=== PATIENT | male | born 1945 | race Caucasian/White ===

== ENCOUNTER 2018-05-02 19:31 | Inpatient (IN) ==
[2018-05-02] MEDS ORDERED: Artificial Tears SOLN 15 ML BOTTLE BOTH EYES PRN (21:33)
--- NOTE | 2018-05-02 21:41 | Internal Med History&Physical ---
<Chacho Alberto - Last Filed: 05/03/18 01:51> Date of Encounter: 05/03/18 Time of Encounter: 09:00 Internal Medicine - H&P: HPI Chief complaint: Hypoxia Admitted From: Hospital to Hospital Transfer Plans for Post Hospital Care: Home History of present illness: Mr. Campbell is a 72 year old male with past medical history of COPD, hypertension, hyperlipidemia, GERD. Patient arrived at [facility] via EMS already intubated and history is obtained per EMS and chart review. No family is present at bedside. Patient reportedly called EMS for concerns of inability to rise from chair. He does receive home health and per their reports state he does normally able to stand and ambulate. Upon arrival, oxygen saturation was noted to be in the 70s. Patient was placed on nonrebreather mask and transferred to [facility]. Upon presentation, patient was noted to have improved oxygen saturation however his mental status did not deteriorate subsequently intubated and transferred to [facility]. Per ED note, patient reported a history of progressive weakness with inability to stand or market editor things. Also admitted to progressive confusion at that time. Further history was not obtainable from the patient upon arrival. Upon arrival, vital signs were significant for a blood pressure in the 90s/50s, heart rate 90s, otherwise unremarkable. Laboratory results were significant for stable anemia, arterial blood gas with pH of 7.42, CO2 of 76, bicarbonate of 49. BMP showed chloride 92, bicarbonate greater than 45, lactic acid 0.4 troponin 0.06, BNP of 143. Blood cultures 2 were obtained in [place] [facility]. CXR demonstrated no acute process with COPD changes. Past medical history as above as well as tardive dyskinesia, organic brain syndrome, anxiety Past surgical history unknown other than chart review Social history per chart review former smoker, denies alcohol or drug use. Past Med Surg Social Fam HX - Past Medical History Medical history: COPD, GERD, hyperlipidemia, hypertension, other (Tardive dyskinesia, chronic pain, cervical myelopathy, lumbar degenerative disc disease, organic brain syndrome) Additional medical history: Tardive dyskinesia Diverticulitis. Tremor Arthralgia Knee. Cervical Myelopathy Pneumonia. Chronic pain syndrome Degeration of Lumbar/sacral. constipation Hyperkalemia. cognitive disorder Organic brain disorder. Anemia Hallucinations Dyspepsia. Pulmomary [place] lesion. Neoplasm f the Trachea. PE Psychiatric history: anxiety - Past Surgical History Surgical History: other (Foot and ear surgeries) Additional surgical history: foot surgery and ear surgery - Social History Smoking Status: Former smoker Smokeless Tobacco Status: No Alcohol use: none Drug use: none Internal Medicine - H&P: Meds RX: Acetaminophen [Tylenol] 325 mg PO Q8H PRN 09/03/17 [History] RX: Aspirin 81 mg PO DAILY 09/03/17 [History] RX: Budesonide/Formoterol 160/4.5 [Symbicort 160/4.5] 2 puff IH BID 09/03/17 [History] RX: Cholecalciferol (Vitamin D3) [Vitamin D3] 1,000 mg PO DAILY 09/03/17 [History] RX: Docusate Sodium [Dok] 100 mg PO BID 09/03/17 [History] RX: Gabapentin [Neurontin] 400 mg PO DAILY 09/03/17 [History] RX: Ipratropium/Albuterol Neb [Duoneb] 1 vial IH Q6H PRN 09/03/17 [History] RX: Losartan [Cozaar] 25 mg PO DAILY 09/03/17 [History] RX: Methocarbamol [Robaxin] 500 mg PO Q4H PRN 09/03/17 [History] RX: Quetiapine Fumarate [Seroquel] 400 mg PO BID 09/03/17 [History] RX: Simvastatin [Zocor] 20 mg PO DAILY 09/03/17 [History] RX: dilTIAZem HCl [Diltiazem 24Hr ER] 240 mg PO DAILY 09/03/17 [History] RX: Paroxetine HCl [Paxil] 40 mg PO DAILY 10/14/17 [History] RX: Sucralfate [Carafate] 1 gm PO ACHS 10/14/17 [History] RX: predniSONE [PredniSONE] 4 mg PO DAILY 10/14/17 [History] RX: Roflumilast [Daliresp] 500 mcg PO DAILY 05/02/18 [History] RX: Buspirone HCl [Buspar] 10 mg PO BID 05/03/18 [History] RX: Calcium Carbonate/Vitamin D3 [Calcium 500 + Vit D Caplet] 1 tab PO BID 05/03/18 [History] RX: Denosumab [Prolia (For Outpatient Infusion)] 60 mg SQ Q6M 05/03/18 [History] RX: Levalbuterol HCl [Xopenex Neb] 1.25 mg IH Q4H PRN 05/03/18 [History] RX: Melatonin 3 mg PO HS 05/03/18 [History] RX: Multivit-Min/FA/Lycopen/Lutein [A Thru [employer] Multivit Tab] 1 tab PO DAILY 05/03/18 [History] RX: Pantoprazole Sodium 40 mg PO DAILY 05/03/18 [History] RX: Tiotropium [Spiriva] 18 mcg IH DAILY 05/03/18 [History] RX: predniSONE [PredniSONE] 10 mg PO DAILY #2 tablet 05/14/18 [Rx] Allergy/AdvReac Type Severity Reaction Status Date / Time No Known Allergies Allergy Verified 09/03/17 08:21 ROS unobtainable: due to endotracheal tube All Systems PM: A 10-system review of systems was performed and is negative for pertinent findings except as documented above in the HPI. - Constitutional Exam: Gen.: Vitals noted. No acute distress. Intubated and sedated HEENT: PERRL/EOMI, Normocephalic, atraumatic, endotracheal tube in place. Neck: Supple. No adenopathy. Cardiac: RRR, no murmur, +S1/S2, tachycardic, No BLE edema Pulmonary: Mechanical ventilation sounds, faint tight wheezing appreciated diffusely. equal chest expansion, unlabored breathing Abdomen: soft, nontender, BS hypoactive, no guarding, no palpable HSM, distended Skin: warm and dry, no visible lesions. MSK: ROM limited secondary to mental status Neuro: Intubated and sedated Psych: Unable to assess Internal Med - H&P Results - Labs CBC & Chem 7: 05/02/18 22:34 05/02/18 22:34 - Assessment and plan (1) Acute respiratory failure Status: Inactive Assessment and plan: - Acute respiratory failure with hypercapnia and hypoxia - ABG in [place] initially showed a CO2 of 126 and a pH of 7.23, pO2 179 - Intubated and sedated. Vent bundle GI prophylaxis - Admitted to [place] for COPD exacerbation and October 2017 - PH is currently well compensated with bicarbonate of greater than 45 - Chest x-ray in [place] ED shows stable chest with no acute process and evidence of chronic COPD changes - Respiratory failure most likely secondary to COPD exacerbation at this time - No evidence of infectious etiology, nonseptic. Does not appear fluid overloaded - Blood cultures obtained in [place] ED Plan - Continue ventilatory support - Scheduled duo nebs - Methylprednisone at 60 mg every 8 hours - Start Levaquin - Order respiratory infectious panel, Legionella and strep antigens Qualifiers: Respiratory failure complication: hypoxia and hypercapnia Qualified Code(s): J96.01 - Acute respiratory failure with hypoxia; J96.02 - Acute respiratory failure with hypercapnia (2) Hypertension Status: Acute Assessment and plan: - Currently borderline at 85/50 while being sedated - We will continue to hold home antihypertensives - Continue to monitor for need of vasopressor support Qualifiers: Hypertension type: essential hypertension Qualified Code(s): I10 - Essential (primary) hypertension (3) Acute exacerbation of chronic obstructive airways disease Status: Acute Assessment and plan: As above for acute respiratory failure (4) COPD (chronic obstructive pulmonary disease) Status: Inactive Assessment and plan: As above Qualifiers: COPD type: unspecified COPD Qualified Code(s): J44.9 - Chronic obstructive pulmonary disease, unspecified (5) Anemia Status: Chronic Assessment and plan: - H/H of 11.1/38.4 - Stable from baseline - No current signs of bleeding - Continue to monitor Qualifiers: Anemia type: unspecified type Qualified Code(s): D64.9 - Anemia, unspecified (6) DVT prophylaxis Status: Acute Assessment and plan: - Heparin 5000 units q12 h - Time Spent With Patient Total time spent is greater than 50% in coordination of care (as documented) at patient's floor/unit and/or counseling patient: <Eunice Romero Z - Last Filed: 05/19/18 04:05> Date of Encounter: 05/19/18 Internal Medicine - H&P: HPI History of present illness: Mr. Campbell is a 72 year old male All Systems PM: A 10-system review of systems was performed and is negative for pertinent findings except as documented above in the HPI. - Constitutional Vitals: Temp Pulse Resp BP Pulse Ox 97.8 F 80 16 105/77 96 05/14/18 06:46 05/14/18 06:46 05/14/18 11:33 05/14/18 06:46 05/14/18 11:33 Internal Med - H&P Results - Labs CBC & Chem 7: 05/14/18 05:19 05/14/18 05:19 - ABG Interpretation ABG results: 05/02/18 05/03/18 05/04/18 22:02 04:48 02:23 ABG pH 7.44 7.51 H 7.44 ABG pCO2 57 H 49 H 59 H ABG pO2 184 H D 98 83 L ABG HCO3 39 H 39 H 40 H ABG Total CO2 41 H 40 H 42 H ABG O2 Saturation 100 H 98 96 ABG Base Excess 12 H 14 H 14 H 05/05/18 05/05/18 05/06/18 10:56 12:38 00:05 ABG pH 7.28 L 7.34 7.29 L ABG pCO2 97 H* 82 H* 99 H* ABG pO2 81 L 74 L 89 ABG HCO3 46 H 44 H 47 H ABG Total CO2 49 H 47 H 50 H ABG O2 Saturation 93 L 93 L 95 ABG Base Excess 16 H 15 H 16 H 05/06/18 05/06/18 05/07/18 05:08 07:39 04:37 ABG pH 7.29 L 7.31 L 7.38 ABG pCO2 100 H* 94 H* 79 H* ABG pO2 71 L 77 L 82 L ABG HCO3 48 H 48 H 47 H ABG Total CO2 > 50 H > 50 H 49 H ABG O2 Saturation 90 L 92 L 95 ABG Base Excess 17 H 17 H 18 H - Impressions ITS Impressions KUB X-Ray 05/02/18 21:41 IMPRESSION: Enteric catheter with side port above the GE junction. This should be advanced at least 8 cm to ensure the side port is below the GE junction. The findings were sent to the Radiology Results Communication Center at 10:42 pm on 05/02/2018to be communicated to a licensed caregiver. D/ / Madeline Mac MD / Madeline Mac MD Interpreting Provider: Madeline Mac MD Head CT 05/03/18 10:00 IMPRESSION: No acute intracranial abnormality. Nonspecific chronic white matter microangiopathic ischemic changes. D/ / Armando Pepper MD / Armando Pepper MD Interpreting Provider: Armando Pepper MD Chest X-Ray 05/06/18 05:33 IMPRESSION: Possible left upper lobe pulmonary nodules. Routine chest CT is recommended for further evaluation. D/ / Lul Dickinson MD / Lul Dickinson MD Interpreting Provider: Lul Dickinson MD Head CT 05/07/18 17:28 IMPRESSION: No acute intracranial abnormality. Stable mild chronic small vessel white matter ischemic changes. D/ / Ryan Lewis MD / Ryan Lewis MD Interpreting Provider: Ryan Lewis MD - Assessment and plan (1) Acute exacerbation of chronic obstructive airways disease Status: Acute (2) Mucopurulent chronic bronchitis Status: Acute (3) Anemia Status: Chronic Qualifiers: Anemia type: unspecified type Qualified Code(s): D64.9 - Anemia, unspecified (4) Hypertension Status: Chronic Qualifiers: Hypertension type: essential hypertension Qualified Code(s): I10 - Essential (primary) hypertension (5) Acute respiratory failure with hypoxia and hypercapnia Status: Resolved (6) Goals of care, counseling/discussion Status: Acute (7) Atrial fibrillation Status: Chronic Qualifiers: Atrial fibrillation type: chronic Qualified Code(s): I48.2 - Chronic atrial fibrillation - Time Spent With Patient Total time spent is greater than 50% in coordination of care (as documented) at patient's floor/unit and/or counseling patient: - Attending Attestation I personally and independently interviewed and examined the patient, and I reviewed the patient's medical records. I am in agreement with the proposed assessment and proposed treatment plan. I discussed my findings and recommendation with the patient and answer all questions. The patient's medical records were edited to accurately reflect this encounter.
[2018-05-02] MEDS ORDERED: Naloxone 0.4 MG/ML INJ IVP PRN (21:48)
[2018-05-02] MEDS ORDERED: Levofloxacin 750 MG/150 ML 750 MG/150 ML BAG IVPB SCH (22:00)
[2018-05-02 22:08] LABS: ABG Base Excess 12 mEq/L (-2 to 3); ABG HCO3 39 mEq/L (21-27); ABG Oxygen Saturation 100 % (95-98); ABG PCO2 57 mmHg (35-45); ABG PH 7.44 pH Units (7.32-7.45); ABG PO2 184 mmHg (85-104); ABG TCO2 41 mEq/L (20-26); Blood Gas Modality ASSIST CONTROL; Blood Gas PEEP 5 cm H2O; Blood Gas Respiration Rate 14; Blood Gas VT 500 cc
[2018-05-02 22:44] LABS: Basophils % 0.2 %; Eosinophils % 0.2 %; Hematocrit 35.2 % (37.5-50.1); Hemoglobin 10.2 g/dL (12.9-16.9); Immature Granulocytes % 0.5 % (0-4); Lymphocytes # 0.4 K/mcL (0.6-4.6); Mean Platelet Volume 10.7 fL (9.4-12.4); Monocytes # 0.2 K/mcL (0.0-1.3); Monocytes % 1.1 %; Platelet Count 305 K/mcL (140-400); Red Blood Count 3.52 M/mcL (4.19-5.50); Red Cell Distribution Width 13.1 % (11.5-14.5)
[2018-05-02 22:51] LABS: Neutrophils # 12.5 K/mcL (1.6-8.9)
[2018-05-02 23:07] LABS: Alanine Aminotransferase 17 Units/L (7-52); Albumin 3.7 g/dL (3.5-5.7); Albumin/Globulin Ratio 1.7 (1.1-2.2); Alkaline Phosphatase 60 Units/L (34-104); Aspartate Amino Transferase 23 Units/L (13-39); BUN/Creatinine Ratio 23 (6-26); Bilirubin,Total 0.3 mg/dL (0.3-1.0); Blood Urea Nitrogen 21 mg/dL (8-23); Calcium 9.3 mg/dL (8.6-10.3); Carbon Dioxide 41 mEq/L (23-29); Chloride 95 mEq/L (98-107); Globulin 2.2 g/dL (2.4-3.5); Glucose 170 mg/dL (70-105); Osmolality,Calculated 297 (280-300); Potassium 4.7 mEq/L (3.5-5.1); Sodium 140 mEq/L (136-145); Total Protein 5.9 g/dL (6.4-8.9); eGFR For Non-African Americans > 60 (> 60)
[2018-05-02] MEDS: Ipratropium/Albuterol Neb 3 ML IH SCH (23:21)
[2018-05-03] MEDS: Artificial Tears SOLN 15 ML BOTTLE BOTH EYES SCH ×7 (00:27→20:50)
[2018-05-03] MEDS: methylPREDNISolone 125 MG/2 ML VIAL IVP SCH ×2 (00:28→07:59)
[2018-05-03 02:44] LABS: Adenovirus Not Detected (Not Detect); Bordetella Pertussis Not Detected (Not Detect); Chlamydophila pneumoniae Not Detected (Not Detect); Coronavirus 229E Not Detected (Not Detect); Coronavirus HKU1 Not Detected (Not Detect); Coronavirus NL63 Not Detected (Not Detect); Coronavirus OC43 Not Detected (Not Detect); Human Metapneumovirus Not Detected (Not Detect); Human Rhinovirus/Enterovirus Not Detected (Not Detect); Influenza A Subtype 2009 H1 Not Detected (Not Detect); Influenza B Not Detected (Not Detect); Mycoplasma pneumoniae Not Detected (Not Detect); Parainfluenza Virus 1 Not Detected (Not Detect); Parainfluenza Virus 2 Not Detected (Not Detect); Parainfluenza Virus 3 Not Detected (Not Detect); Parainfluenza Virus 4 Not Detected (Not Detect); Respiratory Syncytial Virus Not Detected (Not Detect)
[2018-05-03 02:45] LABS: Influenza A Untypeable Not Detected (Not Detect)
[2018-05-03 02:57] LABS: Basophils % 0.1 %; Eosinophils % 0.1 %; Hemoglobin 10.2 g/dL (12.9-16.9); Immature Granulocytes % 0.2 % (0-4); Lymphocytes # 0.4 K/mcL (0.6-4.6); Lymphocytes % 5.1 %; Mean Corpuscular Hemoglobin 28.7 pg (28.0-33.3); Mean Corpuscular Volume 95.5 fL (83.0-100.0); Mean Platelet Volume 10.3 fL (9.4-12.4); Monocytes # 0.1 K/mcL (0.0-1.3); Monocytes % 1.6 %; Neutrophils # 7.5 K/mcL (1.6-8.9); Platelet Count 277 K/mcL (140-400); Red Blood Count 3.56 M/mcL (4.19-5.50); Segmented Neutrophils % 92.9 %
[2018-05-03 03:16] LABS: BUN/Creatinine Ratio 27 (6-26); Blood Urea Nitrogen 23 mg/dL (8-23); Calcium 9.4 mg/dL (8.6-10.3); Carbon Dioxide 36 mEq/L (23-29); Chloride 95 mEq/L (98-107); Glucose 177 mg/dL (70-105); Magnesium 1.1 mg/dL (1.6-2.6); Osmolality,Calculated 294 (280-300); Potassium 4.4 mEq/L (3.5-5.1); Sodium 138 mEq/L (136-145); eGFR For Non-African Americans > 60 (> 60)
[2018-05-03] MEDS: Ipratropium/Albuterol Neb 3 ML IH SCH ×5 (03:29→20:24)
[2018-05-03 04:51] LABS: ABG Base Excess 14 mEq/L (-2 to 3); ABG HCO3 39 mEq/L (21-27); ABG Oxygen Saturation 98 % (95-98); ABG PCO2 49 mmHg (35-45); ABG PH 7.51 pH Units (7.32-7.45); ABG PO2 98 mmHg (85-104); ABG TCO2 40 mEq/L (20-26); Blood Gas Modality ASSIST CONTROL; Blood Gas PEEP 5 cm H2O; Blood Gas Respiration Rate 14; Blood Gas VT 500 cc
[2018-05-03] MEDS: *HR* Heparin 5,000 UNIT/ML VIAL SQ SCH ×2 (05:52→18:10)
[2018-05-03] MEDS: Pantoprazole 40 MG VIAL IVP SCH (05:52)
[2018-05-03] MEDS ORDERED: *HR* Metoprolol 5 MG/5 ML VIAL IVP ONE ×3 (07:55→11:45)
[2018-05-03] MEDS: Chlorhexidine Rinse 15 ML MOUTHWASH MM SCH ×2 (07:58→20:08)
--- NOTE | 2018-05-03 09:06 | Pulmonology Consult Note ---
<Johnna Gaytan - Last Filed: 05/03/18 11:17> Date of Encounter: 05/03/18 Time of Encounter: 09:06 Assessment and Plan (1) Acute respiratory failure with hypoxia and hypercapnia Current Visit: Yes Status: Acute Patient intubated due to hypoxia and concern for altered mental status due to hypercarbia. Will continue antibiotics and steroids for COPD exacerbation. Repeat ABG completed this AM shows overcorrection of patient's hypercarbia therefore vent changed to to respiratory rate 10 with tidal volume 450. Plan for CPAP trial today with possible extubation. (2) Acute exacerbation of chronic obstructive airways disease Current Visit: Yes Status: Acute Patient with hypoxia and respiratory failure. On exam patient has wheezing. Will provide patient with duonebs q4H and albuterol q2H prn. Solumedrol 40mg q 12 hours. No leukocytosis or focal consolidation on chest xray. (3) Weakness Current Visit: Yes Status: Acute CT head to be completed. No focal deficits according to outside facility. Will reassess patient's neurological status once extubated (4) Hypertension Current Visit: Yes Status: Acute Restart patient's home medications Qualifiers: Hypertension type: essential hypertension Qualified Code(s): I10 - Essential (primary) hypertension (5) Anemia Current Visit: Yes Status: Chronic Chronic. Will trend daily CBCs. Qualifiers: Anemia type: unspecified type Qualified Code(s): D64.9 - Anemia, unspecified (6) DVT prophylaxis Current Visit: Yes Status: Acute Subcutaneous heparin History of Present Illness Consult date: 05/03/18 Reason for consult: COPD Chief complaint: Weakness, Acute Respiratory Failure History of present illness: 72 year old male with significant PMHx of COPD, HTN, HLD admitted to our hospital for hypoxia, acute respiratory failure and weakness. During my evaluation the patient is intubated therefore the history of present illness obtained from previous records and documentation. According to the outside emergency department the patient called EMS for global weakness and inability to ambulate. When they arrived to the patient's home he was weak in all four extremities but had no focal deficits. Patient was also found to be hypoxic in the 70s. When he arrived to the outside facility patient's oxygen saturation had improved but he had worsening mental status. There was concern that the patient could not protect his airway due to confusion and decision was made the intubate the patient. When patient arrived to our ICU repeat labs showed stable anemia and stable elevated troponin at 0.06. Patient's repeat ABG showed over- correction for his hypercarbia leading to respiratory alkalosis. Patient received one dose of levaquin with steroids and duonebs for presumed COPD exacerbation. Past Med Surg Social Fam HX - Past Medical History Source: old records reviewed Medical history: COPD, GERD, hyperlipidemia, hypertension, other (Tardive dyskinesia, chronic pain, cervical myelopathy, lumbar degenerative disc disease, organic brain syndrome) Additional medical history: Tardive dyskinesia Diverticulitis. Tremor Arthralgia Knee. Cervical Myelopathy Pneumonia. Chronic pain syndrome Degeration of Lumbar/sacral. constipation Hyperkalemia. cognitive disorder Organic brain disorder. Anemia Hallucinations Dyspepsia. 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 PE Psychiatric history: anxiety - Past Surgical History Surgical History: other (Foot and ear surgeries) Additional surgical history: foot surgery and ear surgery - Social History Smoking Status: Former smoker Smokeless Tobacco Status: No Alcohol use: none Drug use: none Medications and Allergies Acetaminophen [Tylenol] 325 mg PO Q8H PRN 09/03/17 [History] Aspirin 81 mg PO DAILY 09/03/17 [History] Budesonide/Formoterol 160/4.5 [Symbicort 160/4.5] 2 puff IH BID 09/03/17 [History] Cholecalciferol (Vitamin D3) [Vitamin D3] 1,000 mg PO DAILY 09/03/17 [History] Docusate Sodium [Dok] 100 mg PO BID 09/03/17 [History] Gabapentin [Neurontin] 400 mg PO DAILY 09/03/17 [History] Ipratropium/Albuterol Neb [Duoneb] 1 vial IH Q6H PRN 09/03/17 [History] Levalbuterol Tartrate [Xopenex Hfa] 1 puff IH Q8H 09/03/17 [History] Losartan [Cozaar] 25 mg PO DAILY 09/03/17 [History] Methocarbamol [Robaxin] 500 mg PO Q4H PRN 09/03/17 [History] Quetiapine Fumarate [Seroquel] 400 mg PO BID 09/03/17 [History] Simvastatin [Zocor] 40 mg PO DAILY 09/03/17 [History] dilTIAZem HCl [Diltiazem 24Hr ER] 240 mg PO DAILY 09/03/17 [History] Paroxetine HCl [Paxil] 40 mg PO DAILY 10/14/17 [History] Sucralfate [Carafate] 2 ml PO TID 10/14/17 [History] predniSONE [PredniSONE] 1 tab PO DAILY 10/14/17 [History] Roflumilast [Daliresp] 500 mcg PO DAILY 05/02/18 [History] Allergy/AdvReac Type Severity Reaction Status Date / Time No Known Allergies Allergy Verified 09/03/17 08:21 ROS unobtainable: due to endotracheal tube All Systems: The remainder of the systems were reviewed and are negative Physical Examination Vital Signs: Vital Signs, Last 4 Hours Temp Pulse Resp BP Pulse Ox 05/03/18 08:17 14 137/84 97 05/03/18 08:00 98 F 117 16 137/84 96 05/03/18 07:00 112 16 140/82 96 05/03/18 06:10 14 114/98 96 05/03/18 06:00 105 14 114/98 99 General appearance: no acute distress, other (intubated, sedated) Eyes: nonicteric ENT: oropharynx moist Effort: normal Inspection: normal Auscultation: bilateral: wheezes Cardiovascular: PVC's noted, other (tachycardia) Gastrointestinal: normoactive bowel sounds, non-distended Integumentary: normal Extremities: no cyanosis Musculoskeletal: no deformities unable to assess due to mental status Ventilator Settings Ventilator Settings: Ventilator Settings, Last 8 Hours Ventilator Tidal Volume 450 Setting Ventilator Tidal Volume 450 Setting Ventilator Tidal Volume 500 Setting Ventilator Tidal Volume 500 Setting Ventilator Tidal Volume 500 Setting Ventilator Tidal Volume 500 Setting Ventilator Tidal Volume 500 Setting Ventilator Tidal Volume 500 Setting Ventilator Tidal Volume 500 Setting Ventilator Tidal Volume 500 Setting Ventilator Tidal Volume 500 Setting Ventilator Tidal Volume 500 Setting Ventilator Respiratory Rate 10 Setting Ventilator Respiratory Rate 10 Setting Ventilator Respiratory Rate 14 Setting Ventilator Respiratory Rate 14 Setting Ventilator Respiratory Rate 14 Setting Ventilator Respiratory Rate 14 Setting Ventilator Respiratory Rate 14 Setting Ventilator Respiratory Rate 14 Setting Ventilator Respiratory Rate 14 Setting Ventilator Respiratory Rate 14 Setting Ventilator Respiratory Rate 14 Setting Ventilator Respiratory Rate 14 Setting Actual Respiratory Rate 14 Actual Respiratory Rate 16 Actual Respiratory Rate 16 Actual Respiratory Rate 14 Actual Respiratory Rate 14 Actual Respiratory Rate 14 Actual Respiratory Rate 14 Actual Respiratory Rate 14 Actual Respiratory Rate 14 Actual Respiratory Rate 14 Actual Respiratory Rate 14 Positive End Expiratory 5 Pressure Positive End Expiratory 5 Pressure Positive End Expiratory 5 Pressure Positive End Expiratory 5 Pressure Positive End Expiratory 5 Pressure Positive End Expiratory 5 Pressure Positive End Expiratory 5 Pressure Positive End Expiratory 5 Pressure Positive End Expiratory 5 Pressure Positive End Expiratory 5 Pressure Positive End Expiratory 5 Pressure Positive End Expiratory 5 Pressure Peak Inspiratory Airway 25 Pressure Peak Inspiratory Airway 23 Pressure Peak Inspiratory Airway 26 Pressure Peak Inspiratory Airway 25 Pressure Peak Inspiratory Airway 28 Pressure Peak Inspiratory Airway 27 Pressure Peak Inspiratory Airway 29 Pressure Peak Inspiratory Airway 28 Pressure Peak Inspiratory Airway 29 Pressure Peak Inspiratory Airway 26 Pressure Peak Inspiratory Airway 26 Pressure Results - Laboratory Findings CBC and BMP: 05/03/18 02:46 05/03/18 02:46 ABG ABG pH 7.51 pH Units (7.32-7.45) H 05/03/18 04:48 ABG pCO2 49 mmHg (35-45) H 05/03/18 04:48 ABG pO2 98 mmHg (85-104) 05/03/18 04:48 ABG O2 Saturation 98 % (95-98) 05/03/18 04:48 Abnormal lab findings: Abnormal lab results RBC 3.56 M/mcL (4.19-5.50) L 05/03/18 02:46 Hgb 10.2 g/dL (12.9-16.9) L 05/03/18 02:46 Hct 34.0 % (37.5-50.1) L 05/03/18 02:46 MCHC 30.0 g/dL (31.6-35.5) L 05/03/18 02:46 Lymphocytes # 0.4 K/mcL (0.6-4.6) L 05/03/18 02:46 ABG pH 7.51 pH Units (7.32-7.45) H 05/03/18 04:48 ABG pCO2 49 mmHg (35-45) H 05/03/18 04:48 ABG HCO3 39 mEq/L (21-27) H 05/03/18 04:48 ABG Total CO2 40 mEq/L (20-26) H 05/03/18 04:48 ABG Base Excess 14 mEq/L (-2 to 3) H 05/03/18 04:48 Chloride 95 mEq/L (98-107) L 05/03/18 02:46 Carbon Dioxide 36 mEq/L (23-29) H 05/03/18 02:46 BUN/Creatinine Ratio 27 (6-26) H 05/03/18 02:46 Glucose 177 mg/dL (70-105) H 05/03/18 02:46 POC Glucose 148 mg/dL (70-99) H 05/02/18 21:28 Magnesium 1.1 mg/dL (1.6-2.6) L 05/03/18 02:46 Troponin I 0.06 ng/mL (< 0.04) H* 05/02/18 22:34 B-Natriuretic Peptide 105 pg/mL (Less than 100) H 05/03/18 02:46 Serum Total Protein 5.9 g/dL (6.4-8.9) L 05/02/18 22:34 Globulin 2.2 g/dL (2.4-3.5) L 05/02/18 22:34 - Microbiology Findings Microbiology Findings: Microbiology, Last 48 Hours 05/02/18 22:12 Legionella Antigen - Final Urine,[place] Streptococcus pneumoniae Antigen (M - Final - Clinical Findings Intake & Output: Intake & Output 05/02/18 05/03/18 05/03/18 23:59 07:59 15:59 Intake Total 150 / 150 274 / 274 30 Output Total 50 / 50 150 / 150 125 / 125 Balance 100 / 100 124 / 124 -95 / -95 Weight 69.4 kg 69.4 kg Consult Discharge Plan - Plan [facility]errals[facility]Primary Care Provider[facility] - <Per Payne W - Last Filed: 05/03/18 14:47> Date of Encounter: 05/03/18 All Systems: The remainder of the systems were reviewed and are negative Physical Examination Vital Signs: Vital Signs, Last 4 Hours Temp Pulse Resp BP Pulse Ox 05/03/18 14:00 101 18 123/90 96 05/03/18 13:15 100 18 91/72 96 05/03/18 12:31 98.7 F 90 18 122/100 95 05/03/18 11:12 24 157/93 96 05/03/18 11:00 120 17 157/93 94 Ventilator Settings Ventilator Settings: Ventilator Settings, Last 8 Hours Ventilator Tidal Volume 450 Setting Ventilator Tidal Volume 450 Setting Ventilator Tidal Volume 450 Setting Ventilator Tidal Volume 450 Setting Ventilator Tidal Volume 450 Setting Ventilator Tidal Volume 450 Setting Ventilator Tidal Volume 450 Setting Ventilator Tidal Volume 450 Setting Ventilator Tidal Volume 450 Setting Ventilator Tidal Volume 500 Setting Ventilator Respiratory Rate 8 Setting Ventilator Respiratory Rate 8 Setting Ventilator Respiratory Rate 8 Setting Ventilator Respiratory Rate 10 Setting Ventilator Respiratory Rate 8 Setting Ventilator Respiratory Rate 8 Setting Ventilator Respiratory Rate 8 Setting Ventilator Respiratory Rate 10 Setting Ventilator Respiratory Rate 10 Setting Ventilator Respiratory Rate 14 Setting Actual Respiratory Rate 17 Actual Respiratory Rate 17 Actual Respiratory Rate 18 Actual Respiratory Rate 13 Actual Respiratory Rate 18 Actual Respiratory Rate 20 Actual Respiratory Rate 15 Actual Respiratory Rate 14 Actual Respiratory Rate 16 Actual Respiratory Rate 16 Positive End Expiratory 5 Pressure Positive End Expiratory 5 Pressure Positive End Expiratory 5 Pressure Positive End Expiratory 5 Pressure Positive End Expiratory 5 Pressure Positive End Expiratory 5 Pressure Positive End Expiratory 5 Pressure Positive End Expiratory 5 Pressure Positive End Expiratory 5 Pressure Positive End Expiratory 5 Pressure Peak Inspiratory Airway 22 Pressure Peak Inspiratory Airway 23 Pressure Peak Inspiratory Airway 22 Pressure Peak Inspiratory Airway 11 Pressure Peak Inspiratory Airway 18 Pressure Peak Inspiratory Airway 21 Pressure Peak Inspiratory Airway 19 Pressure Peak Inspiratory Airway 25 Pressure Peak Inspiratory Airway 23 Pressure Peak Inspiratory Airway 26 Pressure Results - Laboratory Findings CBC and BMP: 05/03/18 02:46 05/03/18 02:46 ABG ABG pH 7.51 pH Units (7.32-7.45) H 05/03/18 04:48 ABG pCO2 49 mmHg (35-45) H 05/03/18 04:48 ABG pO2 98 mmHg (85-104) 05/03/18 04:48 ABG O2 Saturation 98 % (95-98) 05/03/18 04:48 Abnormal lab findings: Abnormal lab results RBC 3.56 M/mcL (4.19-5.50) L 05/03/18 02:46 Hgb 10.2 g/dL (12.9-16.9) L 05/03/18 02:46 Hct 34.0 % (37.5-50.1) L 05/03/18 02:46 MCHC 30.0 g/dL (31.6-35.5) L 05/03/18 02:46 Lymphocytes # 0.4 K/mcL (0.6-4.6) L 05/03/18 02:46 ABG pH 7.51 pH Units (7.32-7.45) H 05/03/18 04:48 ABG pCO2 49 mmHg (35-45) H 05/03/18 04:48 ABG HCO3 39 mEq/L (21-27) H 05/03/18 04:48 ABG Total CO2 40 mEq/L (20-26) H 05/03/18 04:48 ABG Base Excess 14 mEq/L (-2 to 3) H 05/03/18 04:48 Chloride 95 mEq/L (98-107) L 05/03/18 02:46 Carbon Dioxide 36 mEq/L (23-29) H 05/03/18 02:46 BUN/Creatinine Ratio 27 (6-26) H 05/03/18 02:46 Glucose 177 mg/dL (70-105) H 05/03/18 02:46 POC Glucose 148 mg/dL (70-99) H 05/02/18 21:28 Magnesium 1.1 mg/dL (1.6-2.6) L 05/03/18 02:46 Troponin I 0.06 ng/mL (< 0.04) H* 05/02/18 22:34 B-Natriuretic Peptide 105 pg/mL (Less than 100) H 05/03/18 02:46 Serum Total Protein 5.9 g/dL (6.4-8.9) L 05/02/18 22:34 Globulin 2.2 g/dL (2.4-3.5) L 05/02/18 22:34 - Microbiology Findings Microbiology Findings: Microbiology, Last 48 Hours 05/02/18 22:12 Legionella Antigen - Final Urine,[place] Streptococcus pneumoniae Antigen (M - Final - Clinical Findings Intake & Output: Intake & Output 05/02/18 05/03/18 05/03/18 23:59 07:59 15:59 Intake Total 150 / 150 274 / 274 Output Total 50 / 50 150 / 150 425 / 425 Balance 100 / 100 124 / 124 -395 / -395 Weight 69.4 kg 69.4 kg - Attending Attestation I examined this patient and my medical decision-making was reviewed with the Resident Physician. I agree with the documented findings, disposition and treatment plan as described except to the extent set forth below. We independently had [id number] contact with the patient I spent 32min of Critical Care time with this patient. It involved decision making of high complexity to assess, manipulate, and support vital organ system failure and/or to prevent further life threatening deterioration of the patient's condition. The time involved in the performance of separately reportable procedures was not counted toward critical care time. Patient seen and examined at bedside Labs, radiology, chart personally reviewed. Management was reviewed during multidisciplinary critical care rounds. 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 and weakness prior to intubat ion head CT pending Pulm: Acute on chronic hypoxic hypercapnic respiratory failure which appears secondary to COPD exacerbation no clear evidence of pneumonia but cannot rule out infectious workup undertaken he is on the vent with the evidence of overventilation and I have decreased his 7 minute ventilation to accommodate this if head CT negative and can decrease sedation would consider spontaneous breathing trial later in the morning/afternoon Cards: Blood pressure monitored and stable and he appears to have a history of atrial fibrillation and the rate is regular but multiple PVCs and has been climbing we will reinstitute his home Cardizem for this GI: Prophylaxis given Nutrition: And by mouth for now Renal: UOP Monitored, Cont to Trend sCr and monitor Electrolytes. ID: Continue macrolide antibiotic for COPD exacerbation cultures pending Heme/Onc: DVT prophylaxis given Endo: Glucose Monitored Integ/MSK: Skin Care per routine ICU Nursing Protocol to prevent ulcers. Lines: All lines examined without evidence of infection : Dispo: In ICU for critical illness CODE: Full
[2018-05-03] MEDS ORDERED: Metoprolol XL (24 HR) Succ 25 MG TAB.ER.24H PO SCH (10:45)
[2018-05-03] MEDS ORDERED: Diltiazem CD (24hr) 240 MG CAPSULE PO SCH (10:45)
[2018-05-03] MEDS: dilTIAZem HCl 60 MG TABLET PO SCH ×3 (11:46→23:36)
[2018-05-03] MEDS: *HR* Metoprolol 5 MG/5 ML VIAL IVP SCH ×3 (11:55→23:37)
[2018-05-03] MEDS ORDERED: cefTRIAXone 1,000 MG in Water for inj. (sterile) 20 ML 10 ML IVP SCH (18:00)
[2018-05-03] MEDS ORDERED: Azithromycin 500 MG in D5% in Water 250 ML IVPB SCH (18:00)
[2018-05-03] MEDS: MethylPREDNISolone 40 MG/ML VIAL IVP SCH (18:04)
[2018-05-03] MEDS ORDERED: *HR* LORazepam 2 MG/ML VIAL IVP ONE (21:04)
[2018-05-04] MEDS: Ipratropium/Albuterol Neb 3 ML IH SCH ×7 (00:07→23:39)
[2018-05-04] MEDS ORDERED: Melatonin 3 MG TABLET PO SCH (01:15)
[2018-05-04] MEDS ORDERED: Haloperidol Lactate 5 MG/ML VIAL IVP ONE (02:14)
[2018-05-04] MEDS ORDERED: Haloperidol Lactate 5 MG/ML VIAL ONE (02:15)
[2018-05-04 02:27] LABS: ABG Base Excess 14 mEq/L (-2 to 3); ABG HCO3 40 mEq/L (21-27); ABG Oxygen Saturation 96 % (95-98); ABG PCO2 59 mmHg (35-45); ABG PH 7.44 pH Units (7.32-7.45); ABG PO2 83 mmHg (85-104); ABG TCO2 42 mEq/L (20-26); Blood Gas Modality NIV
[2018-05-04 04:44] LABS: Basophils % 0.1 %; Hematocrit 29.9 % (37.5-50.1); Hemoglobin 9.5 g/dL (12.9-16.9); Immature Granulocytes % 0.3 % (0-4); Lymphocytes # 0.6 K/mcL (0.6-4.6); Lymphocytes % 5.2 %; Mean Corpuscular HGB Conc 31.8 g/dL (31.6-35.5); Mean Corpuscular Hemoglobin 29.1 pg (28.0-33.3); Mean Corpuscular Volume 91.7 fL (83.0-100.0); Mean Platelet Volume 10.8 fL (9.4-12.4); Monocytes # 0.7 K/mcL (0.0-1.3); Monocytes % 6.3 %; Neutrophils # 10.4 K/mcL (1.6-8.9); Platelet Count 254 K/mcL (140-400); Red Blood Count 3.26 M/mcL (4.19-5.50); Red Cell Distribution Width 13.6 % (11.5-14.5); Segmented Neutrophils % 88.1 %
[2018-05-04 05:04] LABS: BUN/Creatinine Ratio 39 (6-26); Blood Urea Nitrogen 32 mg/dL (8-23); Calcium 8.8 mg/dL (8.6-10.3); Carbon Dioxide 38 mEq/L (23-29); Chloride 95 mEq/L (98-107); Glucose 182 mg/dL (70-105); Magnesium 1.9 mg/dL (1.6-2.6); Osmolality,Calculated 296 (280-300); Sodium 137 mEq/L (136-145); eGFR For Non-African Americans > 60 (> 60)
[2018-05-04] MEDS: *HR* Heparin 5,000 UNIT/ML VIAL SQ SCH ×2 (05:37→21:13)
[2018-05-04] MEDS: *HR* Metoprolol 5 MG/5 ML VIAL IVP SCH ×3 (05:37→21:13)
[2018-05-04] MEDS: MethylPREDNISolone 40 MG/ML VIAL IVP SCH (05:37)
[2018-05-04] MEDS: Pantoprazole 40 MG VIAL IVP SCH (05:37)
[2018-05-04] MEDS: dilTIAZem HCl 60 MG TABLET PO SCH ×3 (05:37→21:11)
--- NOTE | 2018-05-04 07:44 | Pulmonology Progress Note ---
<Johnna Gaytan - Last Filed: 05/04/18 08:49> Date of Encounter: 05/04/18 Time of Encounter: 07:43 Assessment and Plan (1) Acute respiratory failure with hypoxia and hypercapnia Current Visit: Yes Status: Resolved Patient extubated yesterday without difficulty. Duonebs and antibiotics to continue for COPD exacerbation. (2) Acute exacerbation of chronic obstructive airways disease Current Visit: Yes Status: Acute Continue antibiotics, duonebs, and steroids. Patient has no wheezing on my examination today. Extubated without difficulty. (3) Weakness Current Visit: Yes Status: Acute CT head within normal limits. No focal deficit on exam. Unsure what patient's baseline is. (4) Hypertension Current Visit: Yes Status: Acute Patient's home medications restarted Qualifiers: Hypertension type: essential hypertension Qualified Code(s): I10 - Essential (primary) hypertension (5) Anemia Current Visit: Yes Status: Chronic chronic. continue to trend CBCs. No sign of active bleeding Qualifiers: Anemia type: unspecified type Qualified Code(s): D64.9 - Anemia, unspecified (6) DVT prophylaxis Current Visit: Yes Status: Acute subcutaneous heparin Subjective Principal diagnosis: COPD exacerbation Interval history: Patient extubated yesterday without difficulty. Overnight patient did have some restlessness therefore his home psychiatric medications were started. Unknown what the patient's baseline mental status is. He is alert in the room and has generalized shaking. No focal neurological deficit. Patient has had no respiratory issues overnight. No changes in baseline labs. Plan to transfer patient to floor today. Objective PUL Vital signs: Last Vital Signs Temp 98.0 F 05/04/18 07:00 Pulse 93 05/04/18 07:00 Resp 21 05/04/18 07:00 BP 140/86 05/04/18 07:00 Pulse Ox 99 05/04/18 07:00 General appearance: no acute distress Eyes: nonicteric ENT: oropharynx dry Neck: supple Effort: normal Cardiovascular: regular rate and rhythm Gastrointestinal: normoactive bowel sounds, non-distended Integumentary: normal Extremities: no cyanosis Musculoskeletal: no deformities non-focal exam Results - Laboratory Findings CBC and BMP: 05/04/18 04:32 05/04/18 04:32 ABG ABG pH 7.44 pH Units (7.32-7.45) 05/04/18 02:23 ABG pCO2 59 mmHg (35-45) H 05/04/18 02:23 ABG pO2 83 mmHg (85-104) L 05/04/18 02:23 ABG O2 Saturation 96 % (95-98) 05/04/18 02:23 Abnormal lab findings: Abnormal lab results WBC 11.8 K/mcL (4.3-11.1) H 05/04/18 04:32 RBC 3.26 M/mcL (4.19-5.50) L 05/04/18 04:32 Hgb 9.5 g/dL (12.9-16.9) L 05/04/18 04:32 Hct 29.9 % (37.5-50.1) L 05/04/18 04:32 Neutrophils # 10.4 K/mcL (1.6-8.9) H 05/04/18 04:32 ABG pCO2 59 mmHg (35-45) H 05/04/18 02:23 ABG pO2 83 mmHg (85-104) L 05/04/18 02:23 ABG HCO3 40 mEq/L (21-27) H 05/04/18 02:23 ABG Total CO2 42 mEq/L (20-26) H 05/04/18 02:23 ABG Base Excess 14 mEq/L (-2 to 3) H 05/04/18 02:23 Chloride 95 mEq/L (98-107) L 05/04/18 04:32 Carbon Dioxide 38 mEq/L (23-29) H 05/04/18 04:32 BUN 32 mg/dL (8-23) H 05/04/18 04:32 BUN/Creatinine Ratio 39 (6-26) H 05/04/18 04:32 Glucose 182 mg/dL (70-105) H 05/04/18 04:32 POC Glucose 148 mg/dL (70-99) H 05/02/18 21:28 Troponin I 0.06 ng/mL (< 0.04) H* 05/02/18 22:34 B-Natriuretic Peptide 105 pg/mL (Less than 100) H 05/03/18 02:46 Serum Total Protein 5.9 g/dL (6.4-8.9) L 05/02/18 22:34 Globulin 2.2 g/dL (2.4-3.5) L 05/02/18 22:34 - Microbiology Findings Microbiology Findings: Microbiology, Last 48 Hours 05/02/18 22:12 Legionella Antigen - Final Urine,[place] Streptococcus pneumoniae Antigen (M - Final - Clinical Findings Intake & Output: Intake & Output 05/03/18 05/03/18 05/04/18 15:59 23:59 07:59 Intake Total 250 / 250 Output Total 425 / 425 325 / 325 550 / 550 Balance -395 / -395 -75 / -75 -550 / -550 Weight 75.7 kg Consult Discharge Plan - Plan [facility]errals: [facility] [Primary Care Provider] - <Juan Douglass - Last Filed: 05/04/18 17:57> Date of Encounter: 05/04/18 Objective PUL Vital signs: Last Vital Signs Temp 98.2 F 05/04/18 15:40 Pulse 105 05/04/18 16:00 Resp 24 05/04/18 14:41 BP 120/70 05/04/18 14:41 Pulse Ox 98 05/04/18 14:41 Results - Laboratory Findings CBC and BMP: 05/04/18 04:32 05/04/18 04:32 ABG ABG pH 7.44 pH Units (7.32-7.45) 05/04/18 02:23 ABG pCO2 59 mmHg (35-45) H 05/04/18 02:23 ABG pO2 83 mmHg (85-104) L 05/04/18 02:23 ABG O2 Saturation 96 % (95-98) 05/04/18 02:23 Abnormal lab findings: Abnormal lab results WBC 11.8 K/mcL (4.3-11.1) H 05/04/18 04:32 RBC 3.26 M/mcL (4.19-5.50) L 05/04/18 04:32 Hgb 9.5 g/dL (12.9-16.9) L 05/04/18 04:32 Hct 29.9 % (37.5-50.1) L 05/04/18 04:32 Neutrophils # 10.4 K/mcL (1.6-8.9) H 05/04/18 04:32 ABG pCO2 59 mmHg (35-45) H 05/04/18 02:23 ABG pO2 83 mmHg (85-104) L 05/04/18 02:23 ABG HCO3 40 mEq/L (21-27) H 05/04/18 02:23 ABG Total CO2 42 mEq/L (20-26) H 05/04/18 02:23 ABG Base Excess 14 mEq/L (-2 to 3) H 05/04/18 02:23 Chloride 95 mEq/L (98-107) L 05/04/18 04:32 Carbon Dioxide 38 mEq/L (23-29) H 05/04/18 04:32 BUN 32 mg/dL (8-23) H 05/04/18 04:32 BUN/Creatinine Ratio 39 (6-26) H 05/04/18 04:32 Glucose 182 mg/dL (70-105) H 05/04/18 04:32 POC Glucose 148 mg/dL (70-99) H 05/02/18 21:28 Troponin I 0.06 ng/mL (< 0.04) H* 05/02/18 22:34 B-Natriuretic Peptide 105 pg/mL (Less than 100) H 05/03/18 02:46 Serum Total Protein 5.9 g/dL (6.4-8.9) L 05/02/18 22:34 Globulin 2.2 g/dL (2.4-3.5) L 05/02/18 22:34 - Microbiology Findings Microbiology Findings: Microbiology, Last 48 Hours 05/02/18 22:12 Legionella Antigen - Final Urine,[place] Streptococcus pneumoniae Antigen (M - Final - Clinical Findings Intake & Output: Intake & Output 05/04/18 05/04/18 05/04/18 07:59 15:59 23:59 Intake Total 240 / 240 180 / 180 Output Total 550 / 550 500 / 500 105 / 105 Balance -550 / -550 -260 / -260 75 / 75 - Attending Attestation I saw and evaluated this patient and my medical decision-making was reviewed with the Resident Physician. I agree with the documented findings, disposition and treatment plan as described except to the extent set forth below. We independently had [id number] contact with the patient Patient seen and examined at bedside Labs, radiology, chart personally reviewed. Management was reviewed during multidisciplinary critical care rounds. [employer]: Patient is conscious oriented 2 has some episodic confusion can be due to ICU induced delirium to give Haldol when necessary if needed please avoid taisha odiazepines Pulm: Patient has acceptable oxygenation and ventilation will need BiPAP at night if tolerates to continue bronchodilators steroids and antibiotics Cards: Patient is hemodynamically stable FEN-GI: Advance diet as tolerated Renal: Labs output reviewed ID: no Active pneumonia Heme/Onc: Absent reviewed Endo: Glucose Monitored Integ/MSK: Skin Care per routine ICU Nursing Protocol to prevent ulcers. Lines: All lines examined without evidence of infection : Dispo: Transfer to 2nd floor telemetry CODE: Full Code
[2018-05-04] MEDS ORDERED: NON-FORMULARY MEDICATION 1 EACH EACH (Quetiapine Fumarate [Seroquel] 400 MG) PO SCH (09:00)
[2018-05-04] MEDS ORDERED: Naloxone 0.4 MG/ML INJ IVP PRN (17:06)
[2018-05-04] MEDS ORDERED: Tobramycin for INHALATION 300 MG/5 ML AMPUL IH SCH (18:00)
[2018-05-04] MEDS: Aspirin 81 MG TAB.CHEW PO SCH (21:10)
[2018-05-04] MEDS: Melatonin 3 MG TABLET PO SCH (21:12)
[2018-05-04] MEDS: Gabapentin 400 MG CAPSULE PO SCH (21:12)
[2018-05-04] MEDS: Azithromycin 500 MG in D5% in Water 250 ML IVPB SCH (21:14)
[2018-05-04] MEDS: Roflumilast [Daliresp] 500 MCG PO SCH (21:15)
[2018-05-05] MEDS: *HR* Metoprolol 5 MG/5 ML VIAL IVP SCH ×5 (00:23→22:06)
[2018-05-05] MEDS: dilTIAZem HCl 60 MG TABLET PO SCH ×5 (02:10→22:06)
[2018-05-05] MEDS: Ipratropium/Albuterol Neb 3 ML IH SCH ×6 (04:26→23:27)
[2018-05-05] MEDS: Pantoprazole 40 MG VIAL IVP SCH (05:02)
[2018-05-05] MEDS: *HR* Heparin 5,000 UNIT/ML VIAL SQ SCH ×2 (05:03→18:42)
[2018-05-05] MEDS: Tobramycin for INHALATION 300 MG/5 ML AMPUL IH SCH ×2 (07:48→20:12)
[2018-05-05] MEDS: Aspirin 81 MG TAB.CHEW PO SCH (08:01)
[2018-05-05] MEDS: Gabapentin 400 MG CAPSULE PO SCH (08:02)
[2018-05-05] MEDS: Roflumilast [Daliresp] 500 MCG PO SCH (08:29)
[2018-05-05 08:54] LABS: BUN/Creatinine Ratio 49 (6-26); Blood Urea Nitrogen 34 mg/dL (8-23); Calcium 8.8 mg/dL (8.6-10.3); Carbon Dioxide 43 mEq/L (23-29); Chloride 100 mEq/L (98-107); Glucose 145 mg/dL (70-105); Osmolality,Calculated 310 (280-300); Potassium 4.9 mEq/L (3.5-5.1); Sodium 145 mEq/L (136-145); eGFR For Non-African Americans > 60 (> 60)
[2018-05-05] MEDS ORDERED: predniSONE 20 MG TABLET PO SCH (09:00)
[2018-05-05 09:47] LABS: Basophils % 0.1 %; Hematocrit 33.1 % (37.5-50.1); Hemoglobin 9.9 g/dL (12.9-16.9); Immature Granulocytes % 0.5 % (0-4); Lymphocytes % 9.2 %; Mean Corpuscular HGB Conc 29.9 g/dL (31.6-35.5); Mean Corpuscular Hemoglobin 29.1 pg (28.0-33.3); Mean Corpuscular Volume 97.4 fL (83.0-100.0); Monocytes # 0.8 K/mcL (0.0-1.3); Monocytes % 7.5 %; Neutrophils # 8.8 K/mcL (1.6-8.9); Platelet Count 253 K/mcL (140-400); Red Cell Distribution Width 13.7 % (11.5-14.5); Segmented Neutrophils % 82.7 %
[2018-05-05 11:06] LABS: ABG Base Excess 16 mEq/L (-2 to 3); ABG HCO3 46 mEq/L (21-27); ABG Oxygen Saturation 93 % (95-98); ABG PCO2 97 mmHg (35-45); ABG PH 7.28 pH Units (7.32-7.45); ABG PO2 81 mmHg (85-104); ABG TCO2 49 mEq/L (20-26)
[2018-05-05 12:43] LABS: ABG Base Excess 15 mEq/L (-2 to 3); ABG HCO3 44 mEq/L (21-27); ABG Oxygen Saturation 93 % (95-98); ABG PCO2 82 mmHg (35-45); ABG PH 7.34 pH Units (7.32-7.45); ABG PO2 74 mmHg (85-104); ABG TCO2 47 mEq/L (20-26); Blood Gas Modality BiLevel
[2018-05-05] MEDS: Azithromycin 500 MG in D5% in Water 250 ML IVPB SCH (17:58)
--- NOTE | 2018-05-05 18:48 | Internal Med Progress Note ---
Hospitalist Progress Note - Encounter Date of Encounter: 05/05/18 Time of Encounter: 11:00 - Subjective Interval History: Patient all ER large with stimulation this morning secondary to acute hypercapnic respiratory failure with elevated CO2 levels this morning Patient not has been placed on BiPAP for the remainder of the day - Exam Vitals: Temp Pulse Resp BP Pulse Ox 97.5 F L 112 22 150/59 94 05/05/18 14:40 05/05/18 16:20 05/05/18 15:09 05/05/18 16:20 05/05/18 16:20 Exam: Gen.: Nonacute distress, patient alert only with stimulation ENT: Mucosal membranes moist Respiratory: Lungs are clear to auscultation bilaterally without any wheezing rhonchi or rales Cardiovascular: Normal S1 and S2 regular rate rhythm no murmurs rubs or gallops Abdomen: Soft, nontender and nondistended with positive bowel sounds Extremities: No lower extremity edema Skin: Normal color - Assessment and Plan (1) Acute respiratory failure with hypoxia and hypercapnia Current Visit: Yes Status: Resolved Assessment and Plan: Patient found to have CO2 of 82 on ABG this morning with a PaO2 of 74 Patient was placed on BiPAP and will remain for the majority of the day. Will reassess ABG later on this evening. (2) Acute exacerbation of chronic obstructive airways disease Current Visit: Yes Status: Acute Assessment and Plan: Will continue IV azithromycin in addition to scheduled DuoNeb's (3) Mucopurulent chronic bronchitis Current Visit: No Status: Acute Assessment and Plan: Will continue tobramycin per pulmonology recommendations (4) Hypertension Current Visit: Yes Status: Acute Assessment and Plan: We will continue patient's home dose of Cozaar and Toprol (5) Anemia Current Visit: Yes Status: Chronic Assessment and Plan: Stable; continue to monitor (6) DVT prophylaxis Current Visit: Yes Status: Acute Assessment and Plan: Heparin subcutaneous - Time Spent with Patient Total time spent is greater than 50% in coordination of care (as documented) at patient's floor/unit and/or counseling patient: Internal Medicine: Result - Labs CBC & Chem 7: 05/05/18 09:32 05/05/18 07:55 Labs: Short CBC 05/05/18 Range/Units 09:32 WBC 10.6 (4.3-11.1) K/mcL Hgb 9.9 L (12.9-16.9) g/dL Hct 33.1 L (37.5-50.1) % Plt Count 253 (140-400) K/mcL Neutrophils # 8.8 (1.6-8.9) K/mcL BMP 05/05/18 07:55 Sodium 145 Potassium 4.9 Chloride 100 Carbon Dioxide 43 H* BUN 34 H Creatinine 0.69 L Glucose 145 H Calcium 8.8 - ABG Interpretation ABG results: ABG ABG pH 7.34 pH Units (7.32-7.45) 05/05/18 12:38 ABG pCO2 82 mmHg (35-45) H* 05/05/18 12:38 ABG pO2 74 mmHg (85-104) L 05/05/18 12:38 ABG O2 Saturation 93 % (95-98) L 05/05/18 12:38 Consult Discharge Plan - Plan [facility]errals: [facility] [Primary Care Provider] - (4) Hypertension Qualifiers: Hypertension type: essential hypertension Qualified Code(s): I10 - Essential (primary) hypertension (5) Anemia Qualifiers: Anemia type: unspecified type Qualified Code(s): D64.9 - Anemia, unspecified
[2018-05-05] MEDS: Melatonin 3 MG TABLET PO SCH (22:06)
[2018-05-06] MEDS ORDERED: *HR* LORazepam 2 MG/ML VIAL IVP ONE (00:13)
[2018-05-06 00:16] LABS: ABG Base Excess 16 mEq/L (-2 to 3); ABG HCO3 47 mEq/L (21-27); ABG Oxygen Saturation 95 % (95-98); ABG PCO2 99 mmHg (35-45); ABG PH 7.29 pH Units (7.32-7.45); ABG PO2 89 mmHg (85-104); ABG TCO2 50 mEq/L (20-26); Blood Gas PEEP 6 cm H2O
[2018-05-06] MEDS: Ipratropium/Albuterol Neb 3 ML IH SCH ×5 (04:41→20:45)
[2018-05-06] MEDS: dilTIAZem HCl 60 MG TABLET PO SCH ×4 (04:53→20:57)
[2018-05-06] MEDS: *HR* Metoprolol 5 MG/5 ML VIAL IVP SCH ×4 (05:01→22:10)
[2018-05-06] MEDS: Pantoprazole 40 MG VIAL IVP SCH (05:02)
[2018-05-06] MEDS: *HR* Heparin 5,000 UNIT/ML VIAL SQ SCH ×2 (05:02→17:56)
[2018-05-06 05:11] LABS: ABG Base Excess 17 mEq/L (-2 to 3); ABG HCO3 48 mEq/L (21-27); ABG Oxygen Saturation 90 % (95-98); ABG PCO2 100 mmHg (35-45); ABG PH 7.29 pH Units (7.32-7.45); ABG PO2 71 mmHg (85-104); ABG TCO2 > 50 mEq/L (20-26); Blood Gas Pressure Support 5 cm H2O
[2018-05-06] MEDS ORDERED: methylPREDNISolone 125 MG/2 ML VIAL IVP ONE (05:16)
--- NOTE | 2018-05-06 06:16 | Event Note ---
Date of Encounter: 05/05/18 Time of Encounter: 23:45 Alerted by LIANA Florentino about pts. latest ABG results: PH 7.29, PCO2 98.7, HCO3 46.9, Total CO2 50, and Base Excess 16. Previous CABG on 05/05/18 at 10:56 showed pH 7.28 PCO2 97, PO2 81, HCO3 46, total CO2 49, base excess 16. ABG on 05/05/18 at 12:38 showed pH 7.34, PCO2 82, PO2 74, HCO3 44, total CO2 47, and base excess 15. Repeat ABG on 05/06/18 showed pH 7.29, PCO2 100, PO2 71, HCO3 48, total CO2 greater than 50, and base excess 17. Pt. had been on Oxymask earlier in the day and was placed on BiPAP @ 12:38 on 05/05/18. Pt. continued to be on BiPAP throughout the night w/o improvement. Pt. admitted w/COPD exacerbation. Pt. currently on IVPB Azithromycin. No steroids ordered, so 125 mg IVP Solu-Medrol ordered 05/06/18 at 05:16. Pt. somnolent on exam but arousable w/effort. RT had adjusted pts. BiPAP settings throughout the night w/o improvement to respiratory status. Pt. was previously intubated on admission from [facility] and extubated on 05/03/18 with PCO2 increasing after extubation. 1V portable CXR ordered stat d/t last CXR being done on 05/02/18. Discussed pt. w/Dr. Bell d/t declining respiratory status w/recommendation to move pt. to ICU. Called Bed Managment at 05:21 and spoke to Angel about securing ICU bed for the pt. to be transferred from . Dr. Miranda messaged to see pt. on floor which he did. I informed him of the situation and plan regarding steroids, CXR, and move to ICU. Pt. moved to ICU @ 05:40. Repeat ABG ordered for 06:30 which will help determine need for possible intubation again.
--- NOTE | 2018-05-06 07:27 | Pulmonology Progress Note ---
<Johnna Gaytan - Last Filed: 05/06/18 07:34> Date of Encounter: 05/06/18 Time of Encounter: 07:26 Assessment and Plan (1) Acute respiratory failure with hypoxia and hypercapnia Current Visit: Yes Status: Resolved Patient placed on BIPAP with return to baseline mental status. Continue BiPAP overnight, during naps, and as needed throughout the day. (2) Acute exacerbation of chronic obstructive airways disease Current Visit: Yes Status: Acute Continue antibiotics, duonebs, and steroids. Patient has no wheezing on my examination today. Continue BiPAP at night and throughout the day as needed. Patient restarted on long acting inhaled steroids. Importance to be placed on patient's mental status and not hypercarbia due to half-way COPD. (3) Hypertension Current Visit: Yes Status: Acute Continue home medications Qualifiers: Hypertension type: essential hypertension Qualified Code(s): I10 - Essential (primary) hypertension (4) Anemia Current Visit: Yes Status: Chronic chronic. continue to trend CBCs. No sign of active bleeding Qualifiers: Anemia type: unspecified type Qualified Code(s): D64.9 - Anemia, unspecified (5) DVT prophylaxis Current Visit: Yes Status: Acute subcutaneous heparin Subjective Principal diagnosis: COPD exacerbation Interval history: Patient transferred to the ICU overnight with concern for abnormal ABG. At my time of assessment patient is wearing BiPAP without difficulty. Alert and responding to commands appropriately. Yesterday at approximately 1800 patient was taken off of BiPAP and placed on nasal cannula due to patient request. Later in the night he became somnolent and decision was made to place him on BiPAP. They completed an ABG that showed hypercarbia. Due to hypercarbia and somnolence patient was transferred to ICU. When he arrived patient's BIPAP settings were adjusted and patient has been alert and able to follow tasks appropriately. Chest x-ray was completed and did not show any fluid overload or focal consolidation. Objective PUL Vital signs: Last Vital Signs Temp 97.4 F L 05/06/18 06:00 Pulse 90 05/06/18 06:35 Resp 30 05/06/18 06:23 BP 123/82 05/06/18 06:00 Pulse Ox 94 05/06/18 06:23 General appearance: no acute distress, alert Eyes: nonicteric ENT: oropharynx moist Neck: supple Effort: normal Cardiovascular: regular rate and rhythm Gastrointestinal: normoactive bowel sounds, non-distended Integumentary: normal Extremities: no cyanosis normal mental status, non-focal exam mood appropriate, affect normal Ventilator Settings Ventilator Settings: Ventilator Settings, Last 8 Hours Ventilator Tidal Volume 450 Setting Ventilator Respiratory Rate 10 Setting Results - Laboratory Findings CBC and BMP: 05/05/18 09:32 05/05/18 07:55 ABG ABG pH 7.29 pH Units (7.32-7.45) L 05/06/18 05:08 ABG pCO2 100 mmHg (35-45) H* 05/06/18 05:08 ABG pO2 71 mmHg (85-104) L 05/06/18 05:08 ABG O2 Saturation 90 % (95-98) L 05/06/18 05:08 Abnormal lab findings: Abnormal lab results RBC 3.40 M/mcL (4.19-5.50) L 05/05/18 09:32 Hgb 9.9 g/dL (12.9-16.9) L 05/05/18 09:32 Hct 33.1 % (37.5-50.1) L 05/05/18 09:32 MCHC 29.9 g/dL (31.6-35.5) L 05/05/18 09:32 ABG pH 7.29 pH Units (7.32-7.45) L 05/06/18 05:08 ABG pCO2 100 mmHg (35-45) H* 05/06/18 05:08 ABG pO2 71 mmHg (85-104) L 05/06/18 05:08 ABG HCO3 48 mEq/L (21-27) H 05/06/18 05:08 ABG Total CO2 > 50 mEq/L (20-26) H 05/06/18 05:08 ABG O2 Saturation 90 % (95-98) L 05/06/18 05:08 ABG Base Excess 17 mEq/L (-2 to 3) H 05/06/18 05:08 Carbon Dioxide 43 mEq/L (23-29) H* 05/05/18 07:55 BUN 34 mg/dL (8-23) H 05/05/18 07:55 Creatinine 0.69 mg/dL (0.70-1.30) L 05/05/18 07:55 BUN/Creatinine Ratio 49 (6-26) H 05/05/18 07:55 Glucose 145 mg/dL (70-105) H 05/05/18 07:55 POC Glucose 154 mg/dL (70-99) H 05/06/18 05:55 Calculated Osmolality 310 (280-300) H 05/05/18 07:55 Ammonia 60 mcmol/L (16-53) H 05/05/18 10:20 Troponin I 0.06 ng/mL (< 0.04) H* 05/02/18 22:34 B-Natriuretic Peptide 105 pg/mL (Less than 100) H 05/03/18 02:46 Serum Total Protein 5.9 g/dL (6.4-8.9) L 05/02/18 22:34 Globulin 2.2 g/dL (2.4-3.5) L 05/02/18 22:34 - Clinical Findings Intake & Output: Intake & Output 05/05/18 05/05/18 05/06/18 15:59 23:59 07:59 Intake Total 300 / 300 930 / 930 Output Total 0 / 0 400 / 400 Balance 300 / 300 530 / 530 Weight 72.6 kg Consult Discharge Plan - Plan [facility]errals: [facility] [Primary Care Provider] - <Juan Douglass - Last Filed: 05/06/18 21:43> Date of Encounter: 05/06/18 Objective PUL Vital signs: Last Vital Signs Temp 97.9 F 05/06/18 15:00 Pulse 101 05/06/18 18:00 Resp 18 05/06/18 18:00 BP 86/69 05/06/18 18:00 Pulse Ox 98 05/06/18 18:00 Results - Laboratory Findings CBC and BMP: 05/05/18 09:32 05/05/18 07:55 ABG ABG pH 7.31 pH Units (7.32-7.45) L 05/06/18 07:39 ABG pCO2 94 mmHg (35-45) H* 05/06/18 07:39 ABG pO2 77 mmHg (85-104) L 05/06/18 07:39 ABG O2 Saturation 92 % (95-98) L 05/06/18 07:39 Abnormal lab findings: Abnormal lab results RBC 3.40 M/mcL (4.19-5.50) L 05/05/18 09:32 Hgb 9.9 g/dL (12.9-16.9) L 05/05/18 09:32 Hct 33.1 % (37.5-50.1) L 05/05/18 09:32 MCHC 29.9 g/dL (31.6-35.5) L 05/05/18 09:32 ABG pH 7.31 pH Units (7.32-7.45) L 05/06/18 07:39 ABG pCO2 94 mmHg (35-45) H* 05/06/18 07:39 ABG pO2 77 mmHg (85-104) L 05/06/18 07:39 ABG HCO3 48 mEq/L (21-27) H 05/06/18 07:39 ABG Total CO2 > 50 mEq/L (20-26) H 05/06/18 07:39 ABG O2 Saturation 92 % (95-98) L 05/06/18 07:39 ABG Base Excess 17 mEq/L (-2 to 3) H 05/06/18 07:39 Carbon Dioxide 43 mEq/L (23-29) H* 05/05/18 07:55 BUN 34 mg/dL (8-23) H 05/05/18 07:55 Creatinine 0.69 mg/dL (0.70-1.30) L 05/05/18 07:55 BUN/Creatinine Ratio 49 (6-26) H 05/05/18 07:55 Glucose 145 mg/dL (70-105) H 05/05/18 07:55 POC Glucose 154 mg/dL (70-99) H 05/06/18 05:55 Calculated Osmolality 310 (280-300) H 05/05/18 07:55 Ammonia 60 mcmol/L (16-53) H 05/05/18 10:20 Troponin I 0.06 ng/mL (< 0.04) H* 05/02/18 22:34 B-Natriuretic Peptide 105 pg/mL (Less than 100) H 05/03/18 02:46 Serum Total Protein 5.9 g/dL (6.4-8.9) L 05/02/18 22:34 Globulin 2.2 g/dL (2.4-3.5) L 12/29/18 22:34 - Clinical Findings Intake & Output: Intake & Output 05/06/18 05/06/18 05/06/18 07:59 15:59 23:59 Intake Total 224 / 224 120 / 120 Output Total 400 / 400 200 / 200 Balance -176 / -176 -80 / -80 Weight 72.6 kg - Attending Attestation I saw and evaluated this patient and my medical decision-making was reviewed with the Resident Physician. I agree with the documented findings, disposition and treatment plan as described except to the extent set forth below. We independently had [id number] contact with the patient Patient seen and examined at bedside Labs, radiology, chart personally reviewed. Management was reviewed during multidisciplinary critical care rounds. [employer]:Patient is conscious oriented times x 2 has this extrapyramidal actions Pulm: Patient is recovering from COPD exacerbation to continue antibiotics , steroids ,duoneb. He needs BIPAP during naps and during night otherwise he will end up worsening of his chronic hypercapnic respiratory failure Cards: Patient is hemodynamically stable FEN-GI:Advance diet as tolerated Renal: Labs and output ID:To continue antibiotics for COPD exacerbation Heme/Onc: Labs reviewed Endo: Glucose Monitored Integ/MSK: Skin Care per routine ICU Nursing Protocol to prevent ulcers. Lines: All lines examined without evidence of infection : Dispo: Transfer to CODE: Full Code
[2018-05-06 07:50] LABS: ABG Base Excess 17 mEq/L (-2 to 3); ABG HCO3 48 mEq/L (21-27); ABG Oxygen Saturation 92 % (95-98); ABG PCO2 94 mmHg (35-45); ABG PH 7.31 pH Units (7.32-7.45); ABG PO2 77 mmHg (85-104); ABG TCO2 > 50 mEq/L (20-26); Blood Gas Modality BiLevel; Blood Gas PEEP 7 cm H2O; Blood Gas VT 450 cc
--- NOTE | 2018-05-06 08:04 | Internal Med Progress Note ---
Hospitalist Progress Note - Encounter Date of Encounter: 05/06/18 Time of Encounter: 11:00 - Subjective Interval History: Patient presented to [place] ICU intubated secondary to acute hypoxic/hypercapnic respiratory failure. Patient was transferred to the medical floor after being extubated but was transferred back to the ICU overnight due to recurrence of acute hypoxic/hypercapnic respiratory failure. Apparently patient was not on BiPAP overnight. - Exam Vitals: Temp Pulse Resp BP Pulse Ox 97.4 F L 96 18 119/68 95 05/06/18 06:00 05/06/18 07:00 05/06/18 07:42 05/06/18 07:42 05/06/18 07:42 Exam: Gen.: Nonacute distress, patient alert and oriented ENT: Mucosal membranes moist Respiratory: Lungs are clear to auscultation bilaterally without any wheezing rhonchi or rales Cardiovascular: Normal S1 and S2 regular rate rhythm no murmurs rubs or gallops Abdomen: Soft, nontender and nondistended with positive bowel sounds Extremities: No lower extremity edema Skin: Normal color - Assessment and Plan (1) Acute respiratory failure with hypoxia and hypercapnia Current Visit: Yes Status: Resolved Assessment and Plan: Patient found to have CO2 of 94 on ABG this morning with a PaO2 of 77 after not being on BiPAP overnight Patient patient must wear BiPAP daily at bedtime Monitor in the ICU for 24 hours with plans to transfer to progressive unit on 05/07/18 [facility] following and appreciate any additional recommendations. (2) Acute exacerbation of chronic obstructive airways disease Current Visit: Yes Status: Acute Assessment and Plan: Will continue IV azithromycin in addition to scheduled DuoNeb's (3) Mucopurulent chronic bronchitis Current Visit: No Status: Acute Assessment and Plan: Will continue tobramycin per pulmonology recommendations (4) Hypertension Current Visit: Yes Status: Acute Assessment and Plan: Will continue patient's home dose of Cozaar and Toprol (5) Anemia Current Visit: Yes Status: Chronic Assessment and Plan: Stable; continue to monitor DVT Prophylaxis: Heparin subcutaneous - Time Spent with Patient Total time spent is greater than 50% in coordination of care (as documented) at patient's floor/unit and/or counseling patient: Internal Medicine: Result - Labs CBC & Chem 7: 05/05/18 09:32 05/05/18 07:55 Labs: Short CBC 05/05/18 Range/Units 09:32 WBC 10.6 (4.3-11.1) K/mcL Hgb 9.9 L (12.9-16.9) g/dL Hct 33.1 L (37.5-50.1) % Plt Count 253 (140-400) K/mcL Neutrophils # 8.8 (1.6-8.9) K/mcL BMP 05/05/18 07:55 Sodium 145 Potassium 4.9 Chloride 100 Carbon Dioxide 43 H* BUN 34 H Creatinine 0.69 L Glucose 145 H Calcium 8.8 - ABG Interpretation ABG results: ABG ABG pH 7.31 pH Units (7.32-7.45) L 05/06/18 07:39 ABG pCO2 94 mmHg (35-45) H* 05/06/18 07:39 ABG pO2 77 mmHg (85-104) L 05/06/18 07:39 ABG O2 Saturation 92 % (95-98) L 05/06/18 07:39 - Impressions Impressions Chest X-Ray 05/06/18 05:33 IMPRESSION: Possible left upper lobe pulmonary nodules. Routine chest CT is recommended for further evaluation. D/ / Lul Dickinson MD / Lul Dickinson MD Interpreting Provider: Lul Dickinson MD Consult Discharge Plan - Plan Referrals: [facility] [Primary Care Provider] - (4) Hypertension Qualifiers: Hypertension type: essential hypertension Qualified Code(s): I10 - Essential (primary) hypertension (5) Anemia Qualifiers: Anemia type: unspecified type Qualified Code(s): D64.9 - Anemia, unspecified
[2018-05-06] MEDS: Aspirin 81 MG TAB.CHEW PO SCH (08:32)
[2018-05-06] MEDS: Gabapentin 400 MG CAPSULE PO SCH (08:33)
[2018-05-06] MEDS: Roflumilast [Daliresp] 500 MCG PO SCH (08:37)
[2018-05-06] MEDS ORDERED: Budesonide/Formoterol 160/4.5 1 PUFF INH IH SCH (10:00)
[2018-05-06] MEDS ORDERED: Naloxone 0.4 MG/ML INJ IVP PRN (10:25)
[2018-05-06] MEDS: Tobramycin for INHALATION 300 MG/5 ML AMPUL IH SCH ×4 (11:31→20:51)
[2018-05-06] MEDS ORDERED: Azithromycin 500 MG in D5% in Water 250 ML IVPB SCH (18:00)
[2018-05-06] MEDS ORDERED: Azithromycin 250 MG TABLET PO SCH (18:00)
[2018-05-06] MEDS: Budesonide/Formoterol 160/4.5 1 PUFF INH IH SCH (20:53)
[2018-05-06] MEDS ORDERED: Melatonin 3 MG TABLET PO SCH (21:00)
[2018-05-07] MEDS: Ipratropium/Albuterol Neb 3 ML IH SCH ×7 (00:22→23:16)
[2018-05-07] MEDS: *HR* Heparin 5,000 UNIT/ML VIAL SQ SCH ×2 (04:35→19:14)
[2018-05-07] MEDS: dilTIAZem HCl 60 MG TABLET PO SCH ×3 (04:35→20:38)
[2018-05-07] MEDS: *HR* Metoprolol 5 MG/5 ML VIAL IVP SCH ×2 (04:35→10:17)
[2018-05-07 04:43] LABS: ABG Base Excess 18 mEq/L (-2 to 3); ABG HCO3 47 mEq/L (21-27); ABG Oxygen Saturation 95 % (95-98); ABG PCO2 79 mmHg (35-45); ABG PH 7.38 pH Units (7.32-7.45); ABG PO2 82 mmHg (85-104); ABG TCO2 49 mEq/L (20-26)
[2018-05-07 04:50] LABS: Basophils % 0.1 %; Eosinophils % 0.1 %; Hematocrit 35.9 % (37.5-50.1); Hemoglobin 10.8 g/dL (12.9-16.9); Immature Granulocytes % 0.4 % (0-4); Lymphocytes # 1.2 K/mcL (0.6-4.6); Lymphocytes % 9.8 %; Mean Corpuscular HGB Conc 30.1 g/dL (31.6-35.5); Mean Corpuscular Volume 96.2 fL (83.0-100.0); Mean Platelet Volume 10.8 fL (9.4-12.4); Monocytes # 0.9 K/mcL (0.0-1.3); Monocytes % 6.8 %; Neutrophils # 10.4 K/mcL (1.6-8.9); Platelet Count 228 K/mcL (140-400); Red Blood Count 3.73 M/mcL (4.19-5.50); Red Cell Distribution Width 13.2 % (11.5-14.5); Segmented Neutrophils % 82.8 %
[2018-05-07 05:16] LABS: BUN/Creatinine Ratio 55 (6-26); Blood Urea Nitrogen 33 mg/dL (8-23); Calcium 9.2 mg/dL (8.6-10.3); Carbon Dioxide 44 mEq/L (23-29); Chloride 96 mEq/L (98-107); Glucose 141 mg/dL (70-105); Osmolality,Calculated 306 (280-300); Potassium 4.4 mEq/L (3.5-5.1); Sodium 143 mEq/L (136-145); eGFR For Non-African Americans > 60 (> 60)
[2018-05-07] MEDS: Budesonide/Formoterol 160/4.5 1 PUFF INH IH SCH ×2 (07:34→20:23)
[2018-05-07] MEDS: Tobramycin for INHALATION 300 MG/5 ML AMPUL IH SCH (07:36)
[2018-05-07] MEDS ORDERED: Patient Taking Own Medication 1 EACH PO SCH (09:00)
[2018-05-07] MEDS ORDERED: predniSONE 20 MG TABLET PO SCH ×2 (09:00)
[2018-05-07] MEDS ORDERED: Gabapentin 400 MG CAPSULE PO SCH (09:00)
[2018-05-07] MEDS ORDERED: Aspirin 81 MG TAB.CHEW PO SCH (09:00)
--- NOTE | 2018-05-07 10:44 | Internal Med Progress Note ---
Hospitalist Progress Note - Encounter Date of Encounter: 05/07/18 Time of Encounter: 11:00 - Subjective Interval History: Patient presented to [place] ICU intubated secondary to acute hypoxic/hypercapnic respiratory failure. Patient was transferred to the medical floor after being extubated but was transferred back to the ICU due to recurrence of acute hypoxic/hypercapnic respiratory failure. Patient's arterial blood gases without much improvement with PCO2 of 79 and PaO2 of 82; pulmonology following for recommendations - Exam Vitals: Temp Pulse Resp BP Pulse Ox 98.3 F 96 16 109/78 97 05/07/18 08:00 05/07/18 10:00 05/07/18 10:00 05/07/18 10:00 05/07/18 10:00 Exam: Gen.: Nonacute distress, patient alert and oriented ENT: Mucosal membranes moist Respiratory: Lungs are clear to auscultation bilaterally without any wheezing rhonchi or rales Cardiovascular: Normal S1 and S2 regular rate rhythm no murmurs rubs or gallops Abdomen: Soft, nontender and nondistended with positive bowel sounds Extremities: No lower extremity edema Skin: Normal color - Assessment and Plan (1) Acute respiratory failure with hypoxia and hypercapnia Current Visit: Yes Status: Resolved Assessment and Plan: Patient's arterial blood gases without much improvement on BiPAP with PCO2 of 79 and PaO2 of 82 Pulmonology following and appreciate recommendations. (2) Acute exacerbation of chronic obstructive airways disease Current Visit: Yes Status: Acute Assessment and Plan: Will continue PO azithromycin in addition to scheduled DuoNeb's (3) Mucopurulent chronic bronchitis Current Visit: No Status: Acute Assessment and Plan: Will continue tobramycin per pulmonology recommendations (4) Hypertension Current Visit: Yes Status: Acute Assessment and Plan: Will continue patient's home dose of Cozaar and Toprol (5) Anemia Current Visit: Yes Status: Chronic Assessment and Plan: Stable; continue to monitor DVT Prophylaxis: Heparin subcutaneous - Time Spent with Patient Total time spent is greater than 50% in coordination of care (as documented) at patient's floor/unit and/or counseling patient: Internal Medicine: Result - Labs CBC & Chem 7: 05/07/18 04:38 05/07/18 04:38 Labs: Short CBC 05/07/18 Range/Units 04:38 WBC 12.5 H (4.3-11.1) K/mcL Hgb 10.8 L (12.9-16.9) g/dL Hct 35.9 L (37.5-50.1) % Plt Count 228 (140-400) K/mcL Neutrophils # 10.4 H (1.6-8.9) K/mcL BMP 05/07/18 04:38 Sodium 143 Potassium 4.4 Chloride 96 L Carbon Dioxide 44 H* BUN 33 H Creatinine 0.60 L Glucose 141 H Calcium 9.2 - ABG Interpretation ABG results: ABG ABG pH 7.38 pH Units (7.32-7.45) 05/07/18 04:37 ABG pCO2 79 mmHg (35-45) H* 05/07/18 04:37 ABG pO2 82 mmHg (85-104) L 05/07/18 04:37 ABG O2 Saturation 95 % (95-98) 05/07/18 04:37 Consult Discharge Plan - Plan Referrals: [facility] [Primary Care Provider] - (4) Hypertension Qualifiers: Hypertension type: essential hypertension Qualified Code(s): I10 - Essential (primary) hypertension (5) Anemia Qualifiers: Anemia type: unspecified type Qualified Code(s): D64.9 - Anemia, unspecified
--- NOTE | 2018-05-07 13:29 | Palliative - Consult Note ---
Date of Encounter: 05/07/18 Time of Encounter: 11:30 - Assessment and Plan (1) Dyspnea Current Visit: Yes Status: Acute Assessment and plan: Patient appears to have hypercarbic respiratory failure r/t COPD exacerbation. Minimal breath sounds on exam. CO2 remains elevated despite treatment. He would be eligible for hospice care if family/POA desires. 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 Qualifiers: Dyspnea type: unspecified Qualified Code(s): R06.00 - Dyspnea, unspecified (2) Goals of care, counseling/discussion Current Visit: Yes Status: Acute Assessment and plan: I was unable to reach POA with phone number on chart, but did contact manager group Breanne Munoz and she provided POA number. Breanne states that patient health has been declining over the past years which has required frequent trips/admissions to OR. States his confusion has worsened as well. He has resided there for 15 years. I was able to reach his POA, Elisha Campbell. She is ex , but still quite involved in his care. Patient does have one son, Shamar, and had a daughter that recently. They both reside in [facility]. Discussed clinical situation with Elisha and need for goals of care discussion. She and Shamar plan on coming to hospital tomorrow to meet with palliative team. (3) Acute exacerbation of chronic obstructive airways disease Current Visit: Yes Status: Acute Assessment and plan: Continues treatment for COPD exacerbation per hospitalist/share holder. (4) Acute respiratory failure with hypoxia and hypercapnia Current Visit: Yes Status: Resolved Palliative-CN HPI - Data of Consult Requesting Physician: Richardson Hawk Primary Care Provider: PCP OR - Consult Narrative History of present illness: Mr. Campbell is a 72 year old male who presented at [facility] after he was unable to get out of chair at the OR snf where he resides. EMS found him hypoxic, and although oxygenation had improved by the time he was at [place], he continued to have altered mental status and was intubated and sent to [facility]. He has pertinent medical history of COpD, GERD, HTN, Hyperlipidemia, anxiety. CXR demonstrated COPD changes, no acute process. He was treated for COPD exacerbation in ICU and was extubation on ......he was transferred out of ICU onto medical floor, but did developed worsening lethargy/AMS and was transferred back to ICU. ABG's pH 7.29/PCO2 100/ PO2 71/HCO3 48. He did not require intubation this time, and was managed with bipap. However, his mental status is still not back to baseline, and bipap has only been removed for meals. ABG's this am: pH 7.38/PCO2 79/PO2 82. Patient has required sitter at bedside r/t restlessness. No family present. Resides in OR snf managed by Breanne Munoz. Ex- Elisha is POA. Upon my visit, he remains on bipap. Will awaken, but difficulty communicating r/t mask. Oriented to name only. Can follow a few simple commands. Appears in no distress. Sitter at bedside. CC: Richardson Hawk - Time Spent with Patient Time: Total time spent is greater than 50% in coordination of care (as documented) at patient's floor/unit and/or counseling patient: Time with patient: 30 minutes Past Med Surg Social Fam HX - Past Medical History Medical history: COPD, GERD, hyperlipidemia, hypertension, other Additional medical history: Tardive dyskinesia Diverticulitis. Tremor Arthralgia Knee. Cervical Myelopathy Pneumonia. Chronic pain syndrome Degeration of Lumbar/sacral. 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 Anemia Hallucinations Dyspepsia. Pulmomary [place] lesion. Neoplasm f the Trachea. PE Psychiatric history: anxiety - Past Surgical History Surgical History: other Additional surgical history: foot surgery and ear surgery - Social History Smoking Status: Former smoker Smokeless Tobacco Status: No Alcohol use: none Drug use: none Medications and Allergies Acetaminophen [Tylenol] 325 mg PO Q8H PRN 09/03/17 [History] Aspirin 81 mg PO DAILY 09/03/17 [History] Budesonide/Formoterol 160/4.5 [Symbicort 160/4.5] 2 puff IH BID 09/03/17 [History] Cholecalciferol (Vitamin D3) [Vitamin D3] 1,000 mg PO DAILY 09/03/17 [History] Docusate Sodium [Dok] 100 mg PO BID 09/03/17 [History] Gabapentin [Neurontin] 400 mg PO DAILY 09/03/17 [History] Ipratropium/Albuterol Neb [Duoneb] 1 vial IH Q6H PRN 09/03/17 [History] Levalbuterol Tartrate [Xopenex Hfa] 1 puff IH Q8H 09/03/17 [History] Losartan [Cozaar] 25 mg PO DAILY 09/03/17 [History] Methocarbamol [Robaxin] 500 mg PO Q4H PRN 09/03/17 [History] Quetiapine Fumarate [Seroquel] 400 mg PO BID 09/03/17 [History] Simvastatin [Zocor] 20 mg PO DAILY 09/03/17 [History] dilTIAZem HCl [Diltiazem 24Hr ER] 240 mg PO DAILY 09/03/17 [History] Paroxetine HCl [Paxil] 40 mg PO DAILY 10/14/17 [History] Sucralfate [Carafate] 1 gm PO ACHS 10/14/17 [History] predniSONE [PredniSONE] 4 mg PO DAILY 10/14/17 [History] Roflumilast [Daliresp] 500 mcg PO DAILY 05/02/18 [History] Buspirone HCl [Buspar] 10 mg PO BID 05/03/18 [History] Calcium Carbonate/Vitamin D3 [Calcium 500 + Vit D Caplet] 1 tab PO BID 05/03/18 [History] Denosumab [Prolia (For Outpatient Infusion)] 60 mg SQ Q6M 05/03/18 [History] Levalbuterol HCl [Xopenex Neb] 1.25 mg IH Q4H PRN 05/03/18 [History] Melatonin 3 mg PO HS 05/03/18 [History] Multivit-Min/FA/Lycopen/Lutein [A Thru Z Select Multivit Tab] 1 tab PO DAILY 05/03/18 [History] Pantoprazole Sodium 40 mg PO DAILY 05/03/18 [History] Tiotropium [Spiriva] 18 mcg IH DAILY 05/03/18 [History] Tobramycin for INHALATION [[place] 300 mg/5 ml Solution] 300 mg IH Q12HR 05/03/18 [History] Allergy/AdvReac Type Severity Reaction Status Date / Time No Known Allergies Allergy Verified 09/03/17 08:21 ROS unobtainable: due to mental status Palliative Care-Exam - Constitutional Vitals: Temp Pulse Resp BP Pulse Ox 98.3 F 107 23 136/111 89 05/07/18 08:00 05/07/18 12:00 05/07/18 12:00 05/07/18 12:00 05/07/18 12:00 General appearance: Present: mild distress - Head Head Exam: Present: normal inspection, normocephalic - Respiratory Additional comments: Breath sounds greatly diminished. Remains on bipap - Cardiovascular Cardiovascular exam: Present: +S1, +S2 - GI/Abdominal Exam GI/Abdominal exam: Present: distended, normal bowel sounds, soft - Extremities Exam Extremities exam: Present: normal capillary refill, normal inspection - Neurological Exam Neurological exam: Present: alert Additional comments: Oriented to name only. Can answer some questions appropriately. Can follow few simple commands - Skin Skin exam: Present: dry Internal Medicine - CN: Reslt - Labs CBC & Chem 7: 05/07/18 04:38 05/07/18 04:38 Labs: Short CBC 05/07/18 Range/Units 04:38 WBC 12.5 H (4.3-11.1) K/mcL Hgb 10.8 L (12.9-16.9) g/dL Hct 35.9 L (37.5-50.1) % Plt Count 228 (140-400) K/mcL Neutrophils # 10.4 H (1.6-8.9) K/mcL BMP 05/07/18 04:38 Sodium 143 Potassium 4.4 Chloride 96 L Carbon Dioxide 44 H* BUN 33 H Creatinine 0.60 L Glucose 141 H Calcium 9.2 - ABG Interpretation ABG results: ABG ABG pH 7.38 pH Units (7.32-7.45) 05/07/18 04:37 ABG pCO2 79 mmHg (35-45) H* 05/07/18 04:37 ABG pO2 82 mmHg (85-104) L 05/07/18 04:37 ABG O2 Saturation 95 % (95-98) 05/07/18 04:37 Consult Discharge Plan - Plan [facility]errals: [facility] [Primary Care Provider] - Palliative Quality Palliative Quality: Screen for Code Status: NA (Awaiting meeting with POA tomorrow), Screen for Goals of Care: NA, Screen for Pain: Yes, If Pain Regimen Started, Initiate Bowel Regimen: NA, Screen for Nausea/Vomitting: Yes Code Status: 05/02/18 21:48 Resuscitation Status: Active [RES] Routine Comment: Resuscitation Status: Full Code
[2018-05-07] MEDS ORDERED: Naloxone 0.4 MG/ML INJ IVP PRN (17:00)
[2018-05-07] MEDS ORDERED: Azithromycin 250 MG TABLET PO SCH (18:00)
--- NOTE | 2018-05-07 19:49 | Pulmonology Progress Note ---
Date of Encounter: 05/07/18 Time of Encounter: 08:00 Assessment and Plan (1) Acute exacerbation of chronic obstructive airways disease Current Visit: Yes Status: Acute To continue duo nebs, bronchodilators and steroids to finish antibiotics with close for 7 days. Patient will need BiPAP during naps and during sleep. Will need adequate fluid management to avoid fluid overload needs to be educated on salt water restriction. (2) Acute respiratory failure with hypoxia and hypercapnia Current Visit: Yes Status: Resolved Patient will need BiPAP qualification on discharge educated extensively that he will need BiPAP usage during naps and during when he sleeps at night. He does not use BiPAP patient will repeatedly get hospitalized. Patient can be transferred to 2nd floor telemetry. Subjective Principal diagnosis: COPD exacerbation Interval history: When I examined him patient has more awake sitting and having his breakfast has his extrapyramidal actions patient denies much cough or sputum production has some shortness of breath denies any chest pain or chest tightness denies any active GERD or any other neuro symptoms. Objective PUL Vital signs: Last Vital Signs Temp 99.0 F 05/07/18 16:59 Pulse 81 05/07/18 16:59 Resp 20 05/07/18 16:59 BP 132/78 05/07/18 16:59 Pulse Ox 98 05/07/18 16:59 Effort: mildly labored Auscultation: bilateral: diminished breath sounds Results - Laboratory Findings CBC and BMP: 05/07/18 04:38 05/07/18 04:38 ABG ABG pH 7.38 pH Units (7.32-7.45) 05/07/18 04:37 ABG pCO2 79 mmHg (35-45) H* 05/07/18 04:37 ABG pO2 82 mmHg (85-104) L 05/07/18 04:37 ABG O2 Saturation 95 % (95-98) 05/07/18 04:37 Abnormal lab findings: Abnormal lab results WBC 12.5 K/mcL (4.3-11.1) H 05/07/18 04:38 RBC 3.73 M/mcL (4.19-5.50) L 05/07/18 04:38 Hgb 10.8 g/dL (12.9-16.9) L 05/07/18 04:38 Hct 35.9 % (37.5-50.1) L 05/07/18 04:38 MCHC 30.1 g/dL (31.6-35.5) L 05/07/18 04:38 Neutrophils # 10.4 K/mcL (1.6-8.9) H 05/07/18 04:38 ABG pCO2 79 mmHg (35-45) H* 05/07/18 04:37 ABG pO2 82 mmHg (85-104) L 05/07/18 04:37 ABG HCO3 47 mEq/L (21-27) H 05/07/18 04:37 ABG Total CO2 49 mEq/L (20-26) H 05/07/18 04:37 ABG Base Excess 18 mEq/L (-2 to 3) H 05/07/18 04:37 Chloride 96 mEq/L (98-107) L 05/07/18 04:38 Carbon Dioxide 44 mEq/L (23-29) H* 05/07/18 04:38 BUN 33 mg/dL (8-23) H 05/07/18 04:38 Creatinine 0.60 mg/dL (0.70-1.30) L 05/07/18 04:38 BUN/Creatinine Ratio 55 (6-26) H 05/07/18 04:38 Glucose 141 mg/dL (70-105) H 05/07/18 04:38 POC Glucose 154 mg/dL (70-99) H 05/06/18 05:55 Calculated Osmolality 306 (280-300) H 05/07/18 04:38 Ammonia 60 mcmol/L (16-53) H 05/05/18 10:20 Troponin I 0.06 ng/mL (< 0.04) H* 05/02/18 22:34 B-Natriuretic Peptide 105 pg/mL (Less than 100) H 05/03/18 02:46 Serum Total Protein 5.9 g/dL (6.4-8.9) L 05/02/18 22:34 Globulin 2.2 g/dL (2.4-3.5) L 05/02/18 22:34 - Clinical Findings Intake & Output: Intake & Output 05/07/18 05/07/18 05/07/18 07:59 15:59 23:59 Intake Total 200 / 200 60 / 60 Output Total 400 / 400 530 / 530 180 / 180 Balance -200 / -200 -470 / -470 -180 / -180 Weight 78.2 kg Consult Discharge Plan - Plan [facility]errals: [facility] [Primary Care Provider] -
[2018-05-07] MEDS ORDERED: Azithromycin 250 MG TABLET PO ONE (20:14)
[2018-05-07] MEDS: Melatonin 3 MG TABLET PO SCH (20:38)
[2018-05-08] MEDS: Ipratropium/Albuterol Neb 3 ML IH SCH ×6 (03:50→23:29)
[2018-05-08 04:30] LABS: Eosinophils # 0.1 K/mcL (0.0-0.6); Eosinophils % 0.9 %; Hematocrit 34.5 % (37.5-50.1); Hemoglobin 10.4 g/dL (12.9-16.9); Immature Granulocytes % 0.4 % (0-4); Lymphocytes % 18.5 %; Mean Corpuscular HGB Conc 30.1 g/dL (31.6-35.5); Mean Corpuscular Hemoglobin 28.7 pg (28.0-33.3); Mean Corpuscular Volume 95.3 fL (83.0-100.0); Mean Platelet Volume 11.1 fL (9.4-12.4); Monocytes # 0.7 K/mcL (0.0-1.3); Monocytes % 6.4 %; Neutrophils # 7.9 K/mcL (1.6-8.9); Platelet Count 223 K/mcL (140-400); Red Blood Count 3.62 M/mcL (4.19-5.50); Segmented Neutrophils % 73.8 %
[2018-05-08 04:53] LABS: Alanine Aminotransferase 18 Units/L (7-52); Albumin 3.4 g/dL (3.5-5.7); Albumin/Globulin Ratio 1.6 (1.1-2.2); Alkaline Phosphatase 50 Units/L (34-104); Aspartate Amino Transferase 11 Units/L (13-39); BUN/Creatinine Ratio 53 (6-26); Bilirubin,Total 0.2 mg/dL (0.3-1.0); Blood Urea Nitrogen 31 mg/dL (8-23); Calcium 9.3 mg/dL (8.6-10.3); Carbon Dioxide 42 mEq/L (23-29); Chloride 97 mEq/L (98-107); Globulin 2.1 g/dL (2.4-3.5); Glucose 121 mg/dL (70-105); Magnesium 1.5 mg/dL (1.6-2.6); Osmolality,Calculated 304 (280-300); Potassium 4.3 mEq/L (3.5-5.1); Sodium 143 mEq/L (136-145); Total Protein 5.5 g/dL (6.4-8.9); eGFR For Non-African Americans > 60 (> 60)
[2018-05-08] MEDS: *HR* Heparin 5,000 UNIT/ML VIAL SQ SCH ×2 (06:23→17:59)
[2018-05-08] MEDS: dilTIAZem HCl 60 MG TABLET PO SCH ×4 (06:24→21:45)
[2018-05-08] MEDS: Budesonide/Formoterol 160/4.5 1 PUFF INH IH SCH ×2 (07:21→20:23)
--- NOTE | 2018-05-08 09:20 | Palliative Progress Note ---
Date of Encounter: 05/08/18 Time of Encounter: 09:00 - Assessment and plan (1) Dyspnea Current Visit: Yes Status: Acute Assessment and plan: Continues with intermittent bipap, Prednisone, Symbicort, and bronchodilators. Supportive Oxygen. Monitor Qualifiers: Dyspnea type: unspecified Qualified Code(s): R06.00 - Dyspnea, unspecified (2) Goals of care, counseling/discussion Current Visit: Yes Status: Acute Assessment and plan: Patient ex-, Elisha (POA) and son Shamar will be coming in for meeting today at [phone]. Patient's fpc caregiver, Breanne Munoz, is also coming in for meeting. I did speak with Breanne by phone and she states that they will not be able to care for him on discharge r/t increased care needs and he will likely need placement. D/W Kris SOLIZ who will try and attend meeting as well. Will f/u later today (3) Acute exacerbation of chronic obstructive airways disease Current Visit: Yes Status: Acute (4) Acute respiratory failure with hypoxia and hypercapnia Current Visit: Yes Status: Resolved - Time Spent With Patient Total time spent is greater than 50% in coordination of care (as documented) at patient's floor/unit and/or counseling patient: - Subjective Interval history: Patient awake and alert. Oriented to person/place today and answering most questions appropriately. Denies pain. States breathing is "pretty good" today. + BM. States ate good breakfast. - Constitutional Vitals: Abnormal lab results RBC 3.62 M/mcL (4.19-5.50) L 05/08/18 04:18 Hgb 10.4 g/dL (12.9-16.9) L 05/08/18 04:18 Hct 34.5 % (37.5-50.1) L 05/08/18 04:18 MCHC 30.1 g/dL (31.6-35.5) L 05/08/18 04:18 ABG pCO2 79 mmHg (35-45) H* 05/07/18 04:37 ABG pO2 82 mmHg (85-104) L 05/07/18 04:37 ABG HCO3 47 mEq/L (21-27) H 05/07/18 04:37 ABG Total CO2 49 mEq/L (20-26) H 05/07/18 04:37 ABG Base Excess 18 mEq/L (-2 to 3) H 05/07/18 04:37 Chloride 97 mEq/L (98-107) L 05/08/18 04:18 Carbon Dioxide 42 mEq/L (23-29) H* 05/08/18 04:18 BUN 31 mg/dL (8-23) H 05/08/18 04:18 Creatinine 0.59 mg/dL (0.70-1.30) L 05/08/18 04:18 BUN/Creatinine Ratio 53 (6-26) H 05/08/18 04:18 Glucose 121 mg/dL (70-105) H 05/08/18 04:18 POC Glucose 154 mg/dL (70-99) H 05/06/18 05:55 Calculated Osmolality 304 (280-300) H 05/08/18 04:18 Magnesium 1.5 mg/dL (1.6-2.6) L 05/08/18 04:18 Total Bilirubin 0.2 mg/dL (0.3-1.0) L 05/08/18 04:18 AST 11 Units/L (13-39) L 05/08/18 04:18 Ammonia 60 mcmol/L (16-53) H 05/08/18 04:18 Troponin I 0.06 ng/mL (< 0.04) H* 05/02/18 22:34 B-Natriuretic Peptide 105 pg/mL (Less than 100) H 05/03/18 02:46 Serum Total Protein 5.5 g/dL (6.4-8.9) L 05/08/18 04:18 Albumin 3.4 g/dL (3.5-5.7) L 05/08/18 04:18 Globulin 2.1 g/dL (2.4-3.5) L 05/08/18 04:18 General appearance: Present: no acute distress - Respiratory Additional comments: Inspiratory crackles noted. Breath sounds diminishes with faint expiratory wheezes as well - Cardiovascular Cardiovascular exam: Present: +S1, +S2 - GI/Abdominal GI/Abdominal exam: Present: normal bowel sounds, soft - Extremities Exam Extremities exam: Present: normal capillary refill, normal inspection - Neurological Exam Neurological exam: Present: alert, strengths equal and symetr throughout Additional comments: Oriented to name/place. Reoriented to time/situation - Skin Skin exam: Present: dry, warm Palliative Quality Palliative Quality: Screen for Code Status: NA (Awaiting meeting with POA tomorrow), Screen for Goals of Care: NA, Screen for Pain: Yes, If Pain Regimen Started, Initiate Bowel Regimen: NA, Screen for Nausea/Vomitting: Yes Code Status: 05/02/18 21:48 Resuscitation Status: Active [RES] Routine Comment: Resuscitation Status: Full Code - Labs CBC & Chem 7: 05/08/18 04:18 05/08/18 04:18 Labs: Laboratory Results - last 24 hr 05/08/18 05/08/18 05/08/18 04:18 04:18 04:18 WBC 10.7 RBC 3.62 L Hgb 10.4 L Hct 34.5 L MCV 95.3 MCH 28.7 MCHC 30.1 L RDW 13.0 Plt Count 223 MPV 11.1 Immature Gran % 0.4 Seg Neutrophils % 73.8 Lymphocytes % 18.5 Monocytes % 6.4 Eosinophils % 0.9 Basophils % 0.0 Neutrophils # 7.9 Lymphocytes # 2.0 Monocytes # 0.7 Eosinophils # 0.1 Basophils # 0.0 Sodium 143 Potassium 4.3 Chloride 97 L Carbon Dioxide 42 H* BUN 31 H Creatinine 0.59 L Est GFR ( Amer) > 60 Est GFR (Non-Af Amer) > 60 BUN/Creatinine Ratio 53 H Glucose 121 H Calculated Osmolality 304 H Calcium 9.3 Magnesium 1.5 L Total Bilirubin 0.2 L AST 11 L ALT 18 Alkaline Phosphatase 50 Ammonia 60 H Serum Total Protein 5.5 L Albumin 3.4 L Globulin 2.1 L Albumin/Globulin Ratio 1.6 - Impressions Impressions Head CT 05/07/18 17:28 IMPRESSION: No acute intracranial abnormality. Stable mild chronic small vessel white matter ischemic changes. D/ / Ryan Lewis MD / Ryan Lewis MD Interpreting Provider: Ryan Lewis MD - ABG Interpretation ABG results: ABG ABG pH 7.38 pH Units (7.32-7.45) 05/07/18 04:37 ABG pCO2 79 mmHg (35-45) H* 05/07/18 04:37 ABG pO2 82 mmHg (85-104) L 05/07/18 04:37 ABG O2 Saturation 95 % (95-98) 05/07/18 04:37 Consult Discharge Plan - Plan Referrals: [facility] [Primary Care Provider] -
[2018-05-08] MEDS: Aspirin 81 MG TAB.CHEW PO SCH (10:06)
[2018-05-08] MEDS: predniSONE 20 MG TABLET PO SCH (10:06)
[2018-05-08] MEDS: Gabapentin 400 MG CAPSULE PO SCH (10:10)
--- NOTE | 2018-05-08 10:40 | Internal Med Progress Note ---
Hospitalist Progress Note - Encounter Date of Encounter: 05/08/18 Time of Encounter: 11:00 - Subjective Interval History: Patient presented to [place] ICU intubated secondary to acute hypoxic/hypercapnic respiratory failure. Patient was transferred to the medical floor after being extubated but was transferred back to the ICU due to recurrence of acute hypoxic/hypercapnic respiratory failure. Patient now returns to progressive unit with recommendations to continue BiPAP while sleeping per pulmonology. Palliative care has been consulted with recommendations for goals of care with family and considering placement at ECF - Exam Vitals: Temp Pulse Resp BP Pulse Ox 97.9 F 96 11 125/92 97 05/08/18 07:04 05/08/18 07:04 05/08/18 07:50 05/08/18 07:04 05/08/18 07:50 Exam: Gen.: Nonacute distress, patient alert and oriented ENT: Mucosal membranes moist Respiratory: Lungs are clear to auscultation bilaterally without any wheezing rhonchi or rales Cardiovascular: Normal S1 and S2 regular rate rhythm no murmurs rubs or gallops Abdomen: Soft, nontender and nondistended with positive bowel sounds Extremities: No lower extremity edema Skin: Normal color - Assessment and Plan (1) Acute respiratory failure with hypoxia and hypercapnia Current Visit: Yes Status: Resolved Assessment and Plan: Pulmonology's recommendations for BiPAP while asleep and maintaining supplemental oxygenation while awake Palliative care has been consulted with recommendations for goals of care with family and considering placement at ECF (2) Acute exacerbation of chronic obstructive airways disease Current Visit: Yes Status: Acute Assessment and Plan: Will continue scheduled DuoNeb's (3) Mucopurulent chronic bronchitis Current Visit: No Status: Acute Assessment and Plan: Patient was on tobramycin per pulmonology recommendations which has been discontinued (4) Hypertension Current Visit: Yes Status: Acute Assessment and Plan: Will continue patient's home dose of Cozaar and Toprol (5) Anemia Current Visit: Yes Status: Chronic Assessment and Plan: Stable; continue to monitor DVT Prophylaxis: Heparin subcutaneous - Time Spent with Patient Total time spent is greater than 50% in coordination of care (as documented) at patient's floor/unit and/or counseling patient: Internal Medicine: Result - Labs CBC & Chem 7: 05/08/18 04:18 05/08/18 04:18 Labs: Short CBC 05/08/18 Range/Units 04:18 WBC 10.7 (4.3-11.1) K/mcL Hgb 10.4 L (12.9-16.9) g/dL Hct 34.5 L (37.5-50.1) % Plt Count 223 (140-400) K/mcL Neutrophils # 7.9 (1.6-8.9) K/mcL BMP 05/08/18 04:18 Sodium 143 Potassium 4.3 Chloride 97 L Carbon Dioxide 42 H* BUN 31 H Creatinine 0.59 L Glucose 121 H Calcium 9.3 Liver Function 05/08/18 Range/Units 04:18 Total Bilirubin 0.2 L (0.3-1.0) mg/dL AST 11 L (13-39) Units/L ALT 18 (7-52) Units/L Alkaline Phosphatase 50 (34-104) Units/L Albumin 3.4 L (3.5-5.7) g/dL - ABG Interpretation ABG results: ABG ABG pH 7.38 pH Units (7.32-7.45) 05/07/18 04:37 ABG pCO2 79 mmHg (35-45) H* 05/07/18 04:37 ABG pO2 82 mmHg (85-104) L 05/07/18 04:37 ABG O2 Saturation 95 % (95-98) 05/07/18 04:37 - Impressions Impressions Head CT 05/07/18 17:28 IMPRESSION: No acute intracranial abnormality. Stable mild chronic small vessel white matter ischemic changes. D/ / Ryan Lewis MD / Ryan Lewis MD Interpreting Provider: yRan Lewis MD Consult Discharge Plan - Plan Referrals: [facility] [Primary Care Provider] - ___ (4) Hypertension Qualifiers: Hypertension type: essential hypertension Qualified Code(s): I10 - Essential (primary) hypertension (5) Anemia Qualifiers: Anemia type: unspecified type Qualified Code(s): D64.9 - Anemia, unspecified
[2018-05-08] MEDS: Melatonin 3 MG TABLET PO SCH (21:45)
[2018-05-09] MEDS: Ipratropium/Albuterol Neb 3 ML IH SCH ×5 (03:43→19:42)
[2018-05-09] MEDS: *HR* Heparin 5,000 UNIT/ML VIAL SQ SCH ×2 (05:57→17:54)
[2018-05-09] MEDS: dilTIAZem HCl 60 MG TABLET PO SCH ×4 (05:57→20:42)
[2018-05-09] MEDS: Budesonide/Formoterol 160/4.5 1 PUFF INH IH SCH ×2 (07:31→19:42)
[2018-05-09] MEDS: Gabapentin 400 MG CAPSULE PO SCH (08:39)
[2018-05-09] MEDS: Aspirin 81 MG TAB.CHEW PO SCH (08:40)
[2018-05-09] MEDS: predniSONE 20 MG TABLET PO SCH (08:40)
--- NOTE | 2018-05-09 09:39 | Internal Med Progress Note ---
Hospitalist Progress Note - Encounter Date of Encounter: 05/09/18 Time of Encounter: 11:00 - Subjective Interval History: Patient presented to [place] ICU intubated secondary to acute hypoxic/hypercapnic respiratory failure. Patient was transferred to the medical floor after being extubated but was transferred back to the ICU due to recurrence of acute hypoxic/hypercapnic respiratory failure. Patient now returns to progressive unit with recommendations to continue BiPAP while sleeping per pulmonology. Palliative care has been consulted with recommendations for goals of care with family Decision has been made by family for ECF placement and disease case manager assisting; awaiting placement - Exam Vitals: Temp Pulse Resp BP Pulse Ox 98.0 F 89 16 108/88 98 05/09/18 06:41 05/09/18 06:41 05/09/18 07:31 05/09/18 06:41 05/09/18 07:31 Exam: Gen.: Nonacute distress, patient alert and oriented ENT: Mucosal membranes moist Respiratory: Lungs are clear to auscultation bilaterally without any wheezing rhonchi or rales Cardiovascular: Normal S1 and S2 regular rate rhythm no murmurs rubs or gallops Abdomen: Soft, nontender and nondistended with positive bowel sounds Extremities: No lower extremity edema Skin: Normal color - Assessment and Plan (1) Goals of care, counseling/discussion Current Visit: Yes Status: Acute Assessment and Plan: Palliative care has been consulted with recommendations for goals of care with family Decision has been made for placement at ECF and disease case manager assisting Awaiting placement (2) Acute respiratory failure with hypoxia and hypercapnia Current Visit: Yes Status: Resolved Assessment and Plan: Pulmonology's recommendations for BiPAP while asleep and maintaining supplemental oxygenation while awake (3) Acute exacerbation of chronic obstructive airways disease Current Visit: Yes Status: Acute Assessment and Plan: Will continue scheduled DuoNeb's (4) Mucopurulent chronic bronchitis Current Visit: No Status: Acute Assessment and Plan: Patient was on tobramycin per pulmonology recommendations which has been discontinued (5) Hypertension Current Visit: Yes Status: Acute Assessment and Plan: Will continue patient's home dose of Cozaar and Toprol (6) Anemia Current Visit: Yes Status: Chronic Assessment and Plan: Stable; continue to monitor DVT Prophylaxis: Heparin subcutaneous - Time Spent with Patient Total time spent is greater than 50% in coordination of care (as documented) at patient's floor/unit and/or counseling patient: Internal Medicine: Result - Labs CBC & Chem 7: 05/09/18 10:47 05/09/18 09:50 - ABG Interpretation ABG results: ABG ABG pH 7.38 pH Units (7.32-7.45) 05/07/18 04:37 ABG pCO2 79 mmHg (35-45) H* 05/07/18 04:37 ABG pO2 82 mmHg (85-104) L 05/07/18 04:37 ABG O2 Saturation 95 % (95-98) 05/07/18 04:37 Consult Discharge Plan - Plan Referrals: [facility] [Primary Care Provider] - (5) Hypertension Qualifiers: Hypertension type: essential hypertension Qualified Code(s): I10 - Essential (primary) hypertension (6) Anemia Qualifiers: Anemia type: unspecified type Qualified Code(s): D64.9 - Anemia, unspecified
[2018-05-09 11:31] LABS: Basophils % 0.1 %; Eosinophils # 0.2 K/mcL (0.0-0.6); Eosinophils % 1.3 %; Hemoglobin 10.7 g/dL (12.9-16.9); Immature Granulocytes % 0.5 % (0-4); Immature Platelets 7.6 % (1.1-6.1); Lymphocytes # 1.2 K/mcL (0.6-4.6); Lymphocytes % 9.5 %; Mean Corpuscular HGB Conc 29.7 g/dL (31.6-35.5); Mean Corpuscular Hemoglobin 28.8 pg (28.0-33.3); Mean Platelet Volume 11.4 fL (9.4-12.4); Monocytes # 0.8 K/mcL (0.0-1.3); Monocytes % 6.3 %; Neutrophils # 10.3 K/mcL (1.6-8.9); Platelet Count 246 K/mcL (140-400); Red Blood Count 3.71 M/mcL (4.19-5.50); Red Cell Distribution Width 13.2 % (11.5-14.5); Segmented Neutrophils % 82.3 %
[2018-05-09 12:20] LABS: BUN/Creatinine Ratio 48 (6-26); Blood Urea Nitrogen 38 mg/dL (8-23); Calcium 9.1 mg/dL (8.6-10.3); Carbon Dioxide 35 mEq/L (23-29); Chloride 97 mEq/L (98-107); Glucose 185 mg/dL (70-105); Osmolality,Calculated 302 (280-300); Potassium 3.8 mEq/L (3.5-5.1); Sodium 139 mEq/L (136-145); eGFR For Non-African Americans > 60 (> 60)
[2018-05-09] MEDS: Melatonin 3 MG TABLET PO SCH (20:42)
[2018-05-10] MEDS: Ipratropium/Albuterol Neb 3 ML IH SCH ×7 (00:33→23:14)
[2018-05-10] MEDS: dilTIAZem HCl 60 MG TABLET PO SCH ×4 (05:01→21:47)
[2018-05-10] MEDS: *HR* Heparin 5,000 UNIT/ML VIAL SQ SCH ×2 (05:01→18:25)
[2018-05-10] MEDS: Budesonide/Formoterol 160/4.5 1 PUFF INH IH SCH ×2 (07:21→19:53)
[2018-05-10] MEDS: predniSONE 20 MG TABLET PO SCH (08:33)
[2018-05-10] MEDS: Aspirin 81 MG TAB.CHEW PO SCH (08:33)
[2018-05-10] MEDS: Gabapentin 400 MG CAPSULE PO SCH (08:35)
--- NOTE | 2018-05-10 09:43 | Internal Med Progress Note ---
Hospitalist Progress Note - Encounter Date of Encounter: 05/10/18 Time of Encounter: 00:00 - Subjective Interval History: Patient presented to [place] ICU intubated secondary to acute hypoxic/hypercapnic respiratory failure. Patient was transferred to the medical floor after being extubated but was transferred back to the ICU due to recurrence of acute hypoxic/hypercapnic respiratory failure. Patient now returns to progressive unit with recommendations to continue BiPAP while sleeping per pulmonology. Palliative care has been consulted with recommendations for goals of care with family Decision has been made by family for ECF placement and oil field caser assisting Awaiting placement - Exam Vitals: Temp Pulse Resp BP Pulse Ox 98.3 F 75 18 103/62 93 05/10/18 05:11 05/10/18 05:11 05/10/18 07:21 05/10/18 05:11 05/10/18 07:21 Exam: Gen.: Nonacute distress, patient alert and oriented ENT: Mucosal membranes moist Respiratory: Lungs are clear to auscultation bilaterally without any wheezing rhonchi or rales Cardiovascular: Normal S1 and S2 regular rate rhythm no murmurs rubs or gallops Abdomen: Soft, nontender and nondistended with positive bowel sounds Extremities: No lower extremity edema Skin: Normal color - Assessment and Plan (1) Goals of care, counseling/discussion Current Visit: Yes Status: Acute Assessment and Plan: Palliative care has been consulted with recommendations for goals of care with family Decision has been made for placement at ECF and oil field caser assisting Awaiting placement (2) Acute respiratory failure with hypoxia and hypercapnia Current Visit: Yes Status: Resolved Assessment and Plan: Pulmonology's recommendations for BiPAP while asleep and maintaining supplemental oxygenation while awake (3) Acute exacerbation of chronic obstructive airways disease Current Visit: Yes Status: Acute Assessment and Plan: Will continue scheduled DuoNeb's (4) Mucopurulent chronic bronchitis Current Visit: No Status: Acute Assessment and Plan: Patient was on tobramycin per pulmonology recommendations which has been discontinued (5) Hypertension Current Visit: Yes Status: Acute Assessment and Plan: Will continue patient's home dose of Cozaar and Toprol (6) Anemia Current Visit: Yes Status: Chronic Assessment and Plan: Stable; continue to monitor DVT Prophylaxis: Heparin subcutaneous - Time Spent with Patient Total time spent is greater than 50% in coordination of care (as documented) at patient's floor/unit and/or counseling patient: Internal Medicine: Result - Labs CBC & Chem 7: 05/10/18 11:36 05/10/18 11:36 Labs: Short CBC 05/09/18 Range/Units 10:47 WBC 12.5 H (4.3-11.1) K/mcL Hgb 10.7 L (12.9-16.9) g/dL Hct 36.0 L (37.5-50.1) % Plt Count 246 (140-400) K/mcL Neutrophils # 10.3 H (1.6-8.9) K/mcL BMP 05/09/18 09:50 Sodium 139 Potassium 3.8 Chloride 97 L Carbon Dioxide 35 H BUN 38 H Creatinine 0.79 Glucose 185 H Calcium 9.1 - ABG Interpretation ABG results: ABG ABG pH 7.38 pH Units (7.32-7.45) 05/07/18 04:37 ABG pCO2 79 mmHg (35-45) H* 05/07/18 04:37 ABG pO2 82 mmHg (85-104) L 05/07/18 04:37 ABG O2 Saturation 95 % (95-98) 05/07/18 04:37 Consult Discharge Plan - Plan [facility]errals: [facility] [Primary Care Provider] - (5) Hypertension Qualifiers: Hypertension type: essential hypertension Qualified Code(s): I10 - Essential (primary) hypertension (6) Anemia Qualifiers: Anemia type: unspecified type Qualified Code(s): D64.9 - Anemia, unspecified
[2018-05-10 12:03] LABS: Eosinophils # 0.2 K/mcL (0.0-0.6); Eosinophils % 1.2 %; Hematocrit 34.4 % (37.5-50.1); Hemoglobin 10.2 g/dL (12.9-16.9); Immature Granulocytes % 0.5 % (0-4); Lymphocytes % 7.9 %; Mean Corpuscular HGB Conc 29.7 g/dL (31.6-35.5); Mean Corpuscular Volume 97.7 fL (83.0-100.0); Mean Platelet Volume 11.2 fL (9.4-12.4); Monocytes # 0.7 K/mcL (0.0-1.3); Monocytes % 5.8 %; Neutrophils # 10.8 K/mcL (1.6-8.9); Platelet Count 231 K/mcL (140-400); Red Blood Count 3.52 M/mcL (4.19-5.50); Red Cell Distribution Width 13.4 % (11.5-14.5); Segmented Neutrophils % 84.6 %
[2018-05-10 12:27] LABS: BUN/Creatinine Ratio 61 (6-26); Blood Urea Nitrogen 43 mg/dL (8-23); Calcium 9.5 mg/dL (8.6-10.3); Carbon Dioxide 43 mEq/L (23-29); Chloride 97 mEq/L (98-107); Glucose 146 mg/dL (70-105); Osmolality,Calculated 307 (280-300); Potassium 4.3 mEq/L (3.5-5.1); Sodium 142 mEq/L (136-145); eGFR For Non-African Americans > 60 (> 60)
[2018-05-10] MEDS: Melatonin 3 MG TABLET PO SCH (21:47)
[2018-05-11] MEDS: Ipratropium/Albuterol Neb 3 ML IH SCH ×6 (03:10→23:02)
[2018-05-11] MEDS: dilTIAZem HCl 60 MG TABLET PO SCH ×4 (04:11→22:33)
[2018-05-11] MEDS: *HR* Heparin 5,000 UNIT/ML VIAL SQ SCH ×2 (05:48→17:51)
[2018-05-11] MEDS: Budesonide/Formoterol 160/4.5 1 PUFF INH IH SCH ×2 (07:26→19:42)
--- NOTE | 2018-05-11 07:50 | Internal Med Progress Note ---
Hospitalist Progress Note - Encounter Date of Encounter: 05/11/18 Time of Encounter: 07:30 - Subjective Interval History: Patient presented to [place] ICU intubated secondary to acute hypoxic/hypercapnic respiratory failure. Patient was transferred to the medical floor after being extubated but was transferred back to the ICU due to recurrence of acute hypoxic/hypercapnic respiratory failure. Patient returned to medical surgical floor with recommendations to continue BiPAP while sleeping per pulmonology. Patient continues to require high flow oxygen supplementation this morning Palliative care following with recommendations for goals of care with family have decided for ECF placement for patient on discharge Case management/social work nurse currently working on placement Awaiting placement to ECF - Exam Vitals: Temp Pulse Resp BP Pulse Ox 98.1 F 82 16 95/68 99 05/11/18 06:49 05/11/18 06:49 05/11/18 07:28 05/11/18 06:49 05/11/18 07:28 Exam: Gen.: Nonacute distress, patient alert and oriented ENT: Mucosal membranes moist Respiratory: Lungs are clear to auscultation bilaterally without any wheezing rhonchi or rales Cardiovascular: Normal S1 and S2 regular rate rhythm no murmurs rubs or gallops Abdomen: Soft, nontender and nondistended with positive bowel sounds Extremities: No lower extremity edema Skin: Normal color - Assessment and Plan (1) Goals of care, counseling/discussion Current Visit: Yes Status: Acute Assessment and Plan: Palliative care has been consulted with recommendations for goals of care with family Decision has been made for placement at ECF and clinical case manager assisting Awaiting placement (2) Acute respiratory failure with hypoxia and hypercapnia Current Visit: Yes Status: Resolved Assessment and Plan: Pulmonology's recommendations for BiPAP while asleep and maintaining supplemental oxygenation while awake (3) Acute exacerbation of chronic obstructive airways disease Current Visit: Yes Status: Acute Assessment and Plan: Will continue scheduled DuoNeb's (4) Mucopurulent chronic bronchitis Current Visit: No Status: Acute Assessment and Plan: Patient was on tobramycin per pulmonology recommendations which has been discontinued (5) Hypertension Current Visit: Yes Status: Acute Assessment and Plan: Will continue patient's home dose of Cozaar and Toprol (6) Anemia Current Visit: Yes Status: Chronic Assessment and Plan: Stable; continue to monitor DVT Prophylaxis: Heparin subcutaneous - Time Spent with Patient Total time spent is greater than 50% in coordination of care (as documented) at patient's floor/unit and/or counseling patient: Internal Medicine: Result - Labs CBC & Chem 7: 05/10/18 11:36 05/10/18 11:36 Labs: Short CBC 05/10/18 Range/Units 11:36 WBC 12.7 H (4.3-11.1) K/mcL Hgb 10.2 L (12.9-16.9) g/dL Hct 34.4 L (37.5-50.1) % Plt Count 231 (140-400) K/mcL Neutrophils # 10.8 H (1.6-8.9) K/mcL BMP 05/10/18 11:36 Sodium 142 Potassium 4.3 Chloride 97 L Carbon Dioxide 43 H* BUN 43 H Creatinine 0.70 Glucose 146 H Calcium 9.5 - ABG Interpretation ABG results: ABG ABG pH 7.38 pH Units (7.32-7.45) 05/07/18 04:37 ABG pCO2 79 mmHg (35-45) H* 05/07/18 04:37 ABG pO2 82 mmHg (85-104) L 05/07/18 04:37 ABG O2 Saturation 95 % (95-98) 05/07/18 04:37 Consult Discharge Plan - Plan Referrals: [facility] [Primary Care Provider] - (5) Hypertension Qualifiers: Hypertension type: essential hypertension Qualified Code(s): I10 - Essential (primary) hypertension (6) Anemia Qualifiers: Anemia type: unspecified type Qualified Code(s): D64.9 - Anemia, unspecified
[2018-05-11] MEDS: Aspirin 81 MG TAB.CHEW PO SCH (08:31)
[2018-05-11] MEDS: predniSONE 20 MG TABLET PO SCH (08:31)
[2018-05-11] MEDS: Gabapentin 400 MG CAPSULE PO SCH (08:31)
[2018-05-11 09:11] LABS: Basophils % 0.3 %; Eosinophils # 0.2 K/mcL (0.0-0.6); Eosinophils % 1.9 %; Hematocrit 34.7 % (37.5-50.1); Hemoglobin 10.7 g/dL (12.9-16.9); Immature Granulocytes % 2.7 % (0-4); Lymphocytes % 18.4 %; Mean Corpuscular HGB Conc 30.8 g/dL (31.6-35.5); Mean Corpuscular Hemoglobin 29.3 pg (28.0-33.3); Mean Corpuscular Volume 95.1 fL (83.0-100.0); Mean Platelet Volume 12.1 fL (9.4-12.4); Monocytes # 0.7 K/mcL (0.0-1.3); Monocytes % 6.1 %; Nucleated Red Blood Cells 1.1 /100 WBC (0); Platelet Count 196 K/mcL (140-400); Red Blood Count 3.65 M/mcL (4.19-5.50); Red Cell Distribution Width 13.2 % (11.5-14.5); Segmented Neutrophils % 70.6 %
[2018-05-11 09:23] LABS: Lymphocytes # 2.2 K/mcL (0.6-4.6); Neutrophils # 8.3 K/mcL (1.6-8.9)
[2018-05-11 09:24] LABS: Platelet Estimate Normal (Normal)
--- NOTE | 2018-05-11 10:22 | Event Note ---
Date of Encounter: 05/11/18 Time of Encounter: 09:40 Patient feeling well, states he had good weekend. Does state that shortness of breath "remains the same". Tolerating bipap well at nighttime. Eating well, + BM's. States his POA in over weekend and should be back today. Understands he cannot return to assisted. Will touch base with social work today for any updates. Nothing to add from palliative at present. Will continue to follow.
[2018-05-11 14:27] LABS: BUN/Creatinine Ratio 46 (6-26); Blood Urea Nitrogen 36 mg/dL (8-23); Calcium 9.7 mg/dL (8.6-10.3); Carbon Dioxide 44 mEq/L (23-29); Chloride 95 mEq/L (98-107); Glucose 200 mg/dL (70-105); Osmolality,Calculated 306 (280-300); Potassium 4.7 mEq/L (3.5-5.1); Sodium 141 mEq/L (136-145); eGFR For Non-African Americans > 60 (> 60)
[2018-05-11] MEDS: Melatonin 3 MG TABLET PO SCH (22:32)
[2018-05-12] MEDS: Ipratropium/Albuterol Neb 3 ML IH SCH ×6 (03:35→23:10)
[2018-05-12] MEDS: dilTIAZem HCl 60 MG TABLET PO SCH ×4 (05:40→23:03)
[2018-05-12] MEDS: *HR* Heparin 5,000 UNIT/ML VIAL SQ SCH ×2 (05:40→16:50)
[2018-05-12] MEDS: Budesonide/Formoterol 160/4.5 1 PUFF INH IH SCH ×2 (07:25→20:09)
[2018-05-12] MEDS: predniSONE 20 MG TABLET PO SCH (08:33)
[2018-05-12] MEDS: Aspirin 81 MG TAB.CHEW PO SCH (08:33)
[2018-05-12] MEDS: Gabapentin 400 MG CAPSULE PO SCH (08:33)
--- NOTE | 2018-05-12 08:55 | Internal Med Progress Note ---
Hospitalist Progress Note - Encounter Date of Encounter: 05/12/18 Time of Encounter: 11:00 - Subjective Interval History: Patient presented to [place] ICU intubated secondary to acute hypoxic/hypercapnic respiratory failure. Patient was transferred to the medical floor after being extubated but was transferred back to the ICU due to recurrence of acute hypoxic/hypercapnic respiratory failure. Patient returned to medical surgical floor with recommendations to continue BiPAP while sleeping per pulmonology. Patient continues to require high flow oxygen supplementation this morning Palliative care following with recommendations for goals of care with family have decided for ECF placement for patient on discharge Case management/professor of social work currently working on placement Awaiting placement to ECF - Exam Vitals: Temp Pulse Resp BP Pulse Ox 97.8 F 76 16 116/64 98 05/12/18 07:06 05/12/18 07:06 05/12/18 07:06 05/12/18 07:06 05/12/18 07:06 Exam: Gen.: Nonacute distress, patient alert and oriented ENT: Mucosal membranes moist Respiratory: Lungs are clear to auscultation bilaterally without any wheezing rhonchi or rales Cardiovascular: Normal S1 and S2 regular rate rhythm no murmurs rubs or gallops Abdomen: Soft, nontender and nondistended with positive bowel sounds Extremities: No lower extremity edema Skin: Normal color - Assessment and Plan (1) Goals of care, counseling/discussion Current Visit: Yes Status: Acute Assessment and Plan: Palliative care has been consulted with recommendations for goals of care with family Decision has been made for placement at ECF and protective services case worker assisting Awaiting placement (2) Acute respiratory failure with hypoxia and hypercapnia Current Visit: Yes Status: Resolved Assessment and Plan: Pulmonology's recommendations for BiPAP while asleep and maintaining supplemental oxygenation while awake (3) Acute exacerbation of chronic obstructive airways disease Current Visit: Yes Status: Acute Assessment and Plan: Will continue scheduled DuoNeb's (4) Mucopurulent chronic bronchitis Current Visit: No Status: Acute Assessment and Plan: Patient was on tobramycin per pulmonology recommendations which has been discontinued (5) Hypertension Current Visit: Yes Status: Acute Assessment and Plan: Will continue patient's home dose of Cozaar and Toprol (6) Anemia Current Visit: Yes Status: Chronic Assessment and Plan: Stable; continue to monitor DVT Prophylaxis: Heparin subcutaneous - Time Spent with Patient Total time spent is greater than 50% in coordination of care (as documented) at patient's floor/unit and/or counseling patient: Internal Medicine: Result - Labs CBC & Chem 7: 05/12/18 12:12 05/12/18 11:13 Labs: Short CBC 05/11/18 Range/Units 08:58 WBC 11.7 H (4.3-11.1) K/mcL Hgb 10.7 L (12.9-16.9) g/dL Hct 34.7 L (37.5-50.1) % Plt Count 196 (140-400) K/mcL Neutrophils # 8.3 (1.6-8.9) K/mcL BMP 05/11/18 13:51 Sodium 141 Potassium 4.7 Chloride 95 L Carbon Dioxide 44 H* BUN 36 H Creatinine 0.79 Glucose 200 H Calcium 9.7 - ABG Interpretation ABG results: ABG ABG pH 7.38 pH Units (7.32-7.45) 05/07/18 04:37 ABG pCO2 79 mmHg (35-45) H* 05/07/18 04:37 ABG pO2 82 mmHg (85-104) L 05/07/18 04:37 ABG O2 Saturation 95 % (95-98) 05/07/18 04:37 Consult Discharge Plan - Plan [facility]errals: [facility] [Primary Care Provider] - (5) Hypertension Qualifiers: Hypertension type: essential hypertension Qualified Code(s): I10 - Essential (primary) hypertension (6) Anemia Qualifiers: Anemia type: unspecified type Qualified Code(s): D64.9 - Anemia, unspecified
[2018-05-12 12:19] LABS: Basophils % 0.1 %; Eosinophils # 0.1 K/mcL (0.0-0.6); Hemoglobin 10.8 g/dL (12.9-16.9); Immature Granulocytes % 1.3 % (0-4); Lymphocytes # 1.4 K/mcL (0.6-4.6); Lymphocytes % 9.8 %; Mean Corpuscular Hemoglobin 29.7 pg (28.0-33.3); Mean Corpuscular Volume 98.9 fL (83.0-100.0); Mean Platelet Volume 11.1 fL (9.4-12.4); Monocytes % 6.9 %; Neutrophils # 11.2 K/mcL (1.6-8.9); Platelet Count 215 K/mcL (140-400); Red Blood Count 3.64 M/mcL (4.19-5.50); Red Cell Distribution Width 13.5 % (11.5-14.5); Segmented Neutrophils % 80.9 %
[2018-05-12 12:28] LABS: BUN/Creatinine Ratio 49 (6-26); Blood Urea Nitrogen 35 mg/dL (8-23); Calcium 9.4 mg/dL (8.6-10.3); Carbon Dioxide 45 mEq/L (23-29); Chloride 95 mEq/L (98-107); Glucose 215 mg/dL (70-105); Osmolality,Calculated 308 (280-300); Potassium 4.5 mEq/L (3.5-5.1); Sodium 142 mEq/L (136-145); eGFR For Non-African Americans > 60 (> 60)
--- NOTE | 2018-05-12 17:26 | Electrocardiograph Report ---
[place] [address] Test Date: 2018-05-11 Pat Name: De Campbell Department: 111 Room: [id number] Gender: M Event Marketing Intern: : 1945 Requested By: Richardson Hawk Order Number: [id number] Reading MD: Dayanna Hayes Measurements Intervals [place] Rate: 85 P: IN: 0 QRS: 43 QRSD: 107 T: -60 QT: 350 QTc: 392 Interpretive Statements ATRIAL FIBRILLATION INCOMPLETE RIGHT BUNDLE BRANCH BLOCK NONSPECIFIC T-WAVE ABNORMALITY Electronically Signed On 05-12-2018 17:25:13 EST by Dayanna Hayes
[2018-05-12] MEDS: Melatonin 3 MG TABLET PO SCH (20:07)
[2018-05-13] MEDS: dilTIAZem HCl 60 MG TABLET PO SCH ×4 (04:50→21:29)
[2018-05-13] MEDS: *HR* Heparin 5,000 UNIT/ML VIAL SQ SCH ×2 (04:50→18:04)
[2018-05-13] MEDS: Ipratropium/Albuterol Neb 3 ML IH SCH ×6 (04:53→23:26)
[2018-05-13] MEDS: Budesonide/Formoterol 160/4.5 1 PUFF INH IH SCH ×2 (07:24→19:51)
[2018-05-13] MEDS: predniSONE 20 MG TABLET PO SCH (09:24)
[2018-05-13] MEDS: Gabapentin 400 MG CAPSULE PO SCH (09:24)
[2018-05-13] MEDS: Aspirin 81 MG TAB.CHEW PO SCH (09:25)
--- NOTE | 2018-05-13 11:18 | Event Note ---
Date of Encounter: 05/13/18 Time of Encounter: 11:00 Patient currently asleep with bipap on. Chart review completed, did participate in therapy and was out of bed earlier today. Is having some hypoxic episodes during therapy. Awaiting placement, does not appear [facility] can accept patient back at that facility. D/W Kris De Leon yesterday, and he has been working on discharge plan, but difficult situation as no Medicaid in place, and not service connected for [facility] to take. Palliative not currently managing any symptoms. POA and DNR status complete. Palliative will sign off. If patent clinical condition changes, please call or reconsult if needed.
--- NOTE | 2018-05-13 12:57 | Internal Med Progress Note ---
Hospitalist Progress Note - Encounter Date of Encounter: 05/13/18 Time of Encounter: 09:35 - Subjective Interval History: Patient lying down in bed. Awake and alert. Denies any new complaints today. Shortness of breath at baseline. No fever or chills reported overnight. On nasal cannula during my visit. Has been using BiPAP less for the past day. Tolerating diet well. - Exam Vitals: Temp Pulse Resp BP Pulse Ox 97.9 F 79 14 123/62 98 05/13/18 06:52 05/13/18 06:52 05/13/18 11:18 05/13/18 11:18 05/13/18 11:18 Exam: General: Patient is alert, mild distress, oriented x 3 ENT: Mucous membranes moist Respiratory: Decreased air entry at both bases. Bilateral mild wheezing Cardiovascular: Regular rate and rhythm. s1 and s2 normal No clicks, rubs, gall ops, or murmurs. No pedal edema Abdomen: Abdomen is soft, nontender. Bowel sounds are present Musculoskeletal: Spontaneously moving all extremities Skin: warm, dry, intact. Neuro: Alert oriented x 3 normal cranial nerves, no focal deficits - Assessment and Plan (1) Acute exacerbation of chronic obstructive airways disease Current Visit: Yes Status: Acute Assessment and Plan: Continue to wean FiO2. Continue to taper steroids. Continue bronchodilators. Awaiting placement to skilled rehabilitation (2) Acute respiratory failure with hypoxia and hypercapnia Current Visit: Yes Status: Resolved Assessment and Plan: Due to acute COPD exacerbation. Now resolved (3) Mucopurulent chronic bronchitis Current Visit: No Status: Acute Assessment and Plan: Continue steroid inhalers and bronchodilators. (4) Anemia Current Visit: Yes Status: Chronic Assessment and Plan: Stable. Hemoglobin 10.8. (5) Hypertension Current Visit: Yes Status: Chronic Assessment and Plan: Blood pressure is well controlled. Continue metoprolol, Cardizem (6) Goals of care, counseling/discussion Current Visit: Yes Status: Acute (7) Atrial fibrillation Current Visit: Yes Status: Chronic Assessment and Plan: Patient appears to have a history of atrial fibrillation. Present on admission.r Rte controlled. Not on anticoagulation due to anemia. Follow-up outpatient with PCP and cardiology DVT Prophylaxis: On subcutaneous heparin - Time Spent with Patient Total time spent is greater than 50% in coordination of care (as documented) at patient's floor/unit and/or counseling patient: Internal Medicine: Result - Labs CBC & Chem 7: 05/12/18 12:12 05/12/18 11:13 - ABG Interpretation ABG results: ABG ABG pH 7.38 pH Units (7.32-7.45) 05/07/18 04:37 ABG pCO2 79 mmHg (35-45) H* 05/07/18 04:37 ABG pO2 82 mmHg (85-104) L 05/07/18 04:37 ABG O2 Saturation 95 % (95-98) 05/07/18 04:37 Consult Discharge Plan - Plan [facility]errals: [facility] [Primary Care Provider] - (4) Anemia Qualifiers: Anemia type: unspecified type Qualified Code(s): D64.9 - Anemia, unspecified (5) Hypertension Qualifiers: Hypertension type: essential hypertension Qualified Code(s): I10 - Essential (primary) hypertension (7) Atrial fibrillation Qualifiers: Atrial fibrillation type: chronic Qualified Code(s): I48.2 - Chronic atrial fibrillation
[2018-05-13] MEDS: Melatonin 3 MG TABLET PO SCH (21:28)
[2018-05-14] MEDS: Ipratropium/Albuterol Neb 3 ML IH SCH ×3 (04:12→11:33)
[2018-05-14 05:36] LABS: Basophils % 0.2 %; Eosinophils # 0.2 K/mcL (0.0-0.6); Hematocrit 36.9 % (37.5-50.1); Hemoglobin 10.7 g/dL (12.9-16.9); Lymphocytes # 2.3 K/mcL (0.6-4.6); Lymphocytes % 13.7 %; Mean Corpuscular Hemoglobin 28.7 pg (28.0-33.3); Mean Corpuscular Volume 98.9 fL (83.0-100.0); Mean Platelet Volume 11.3 fL (9.4-12.4); Monocytes # 1.2 K/mcL (0.0-1.3); Monocytes % 7.1 %; Neutrophils # 12.6 K/mcL (1.6-8.9); Platelet Count 236 K/mcL (140-400); Red Blood Count 3.73 M/mcL (4.19-5.50); Red Cell Distribution Width 13.8 % (11.5-14.5)
[2018-05-14] MEDS: *HR* Heparin 5,000 UNIT/ML VIAL SQ SCH (06:01)
[2018-05-14] MEDS: dilTIAZem HCl 60 MG TABLET PO SCH ×2 (06:01→09:09)
[2018-05-14 06:44] LABS: BUN/Creatinine Ratio 43 (6-26); Blood Urea Nitrogen 30 mg/dL (8-23); Calcium 9.5 mg/dL (8.6-10.3); Carbon Dioxide 43 mEq/L (23-29); Chloride 96 mEq/L (98-107); Glucose 113 mg/dL (70-105); Osmolality,Calculated 305 (280-300); Potassium 4.7 mEq/L (3.5-5.1); Sodium 144 mEq/L (136-145); eGFR For Non-African Americans > 60 (> 60)
[2018-05-14 06:48] VITALS: BP 105/77
[2018-05-14] MEDS: Budesonide/Formoterol 160/4.5 1 PUFF INH IH SCH (07:29)
[2018-05-14] MEDS: Aspirin 81 MG TAB.CHEW PO SCH (09:09)
[2018-05-14] MEDS: Gabapentin 400 MG CAPSULE PO SCH (09:09)
[2018-05-14] MEDS: predniSONE 20 MG TABLET PO SCH (09:19)
[2018-05-14] MEDS ORDERED: Diltiazem CD (24hr) 240 MG CAPSULE PO SCH (12:00)
--- NOTE | 2018-05-14 13:31 | Discharge Summary ---
- NOTES TO OUTPATIENT PROVIDER Notes to Outpatient Provider: Patient with a history of COPD hypertension hyperlipidemia and gastroesophageal reflux disease was hospitalized here with acute respiratory failure and hypoxia and required endotracheal intubation initially. This was believed to be related to COPD exacerbation and possible pneumonia. Patient was treated with steroids, bronchodilators and intravenous antibiotics. Patient's condition slowly improved and he was able to be extubated the next day. Since then he has been continuing to slowly recover. Presently he is on 2-3 L O2 supplementation but he is requiring BiPAP intermittently overnight. He has been evaluated by physical therapy and recommended ECF placement. Since he [place] a [place] patient, I spoke with the physician at the [place] medical [facility] here and they agreed to accept the patient in the medical wing due to him requiring BiPAP at night. He will then be transitioned to rehabilitation unit there. He has completed antibiotic course for his pneumonia. His WBC count is slightly elevated today due to him being on steroids. He is clinically stable to be discharged from the hospital at this time. Date of Encounter: 05/14/18 Time of Encounter: 13:28 - Discharge Diagnosis (1) Acute exacerbation of chronic obstructive airways disease Priority: Primary Status: Acute (2) Acute respiratory failure with hypoxia and hypercapnia Priority: Secondary Status: Resolved (3) Mucopurulent chronic bronchitis Priority: Secondary Status: Acute (4) Anemia Priority: Secondary Status: Chronic Qualifiers: Anemia type: unspecified type Qualified Code(s): D64.9 - Anemia, unspecified (5) Hypertension Priority: Secondary Status: Chronic Qualifiers: Hypertension type: essential hypertension Qualified Code(s): I10 - Essential (primary) hypertension (6) Goals of care, counseling/discussion Priority: Secondary Status: Acute (7) Atrial fibrillation Priority: Secondary Status: Chronic Qualifiers: Atrial fibrillation type: chronic Qualified Code(s): I48.2 - Chronic atrial fibrillation Hospital course: Mr. Campbell is a 72 year old male Patient with a history of COPD hypertension hyperlipidemia and gastroesophageal reflux disease was hospitalized here with acute respiratory failure and hypoxia and required endotracheal intubation initially. This was believed to be related to COPD exacerbation and possible pneumonia. Patient was treated with steroids, bronchodilators and intravenous antibiotics. Patient's condition slowly improved and he was able to be extubated the next day. Since then he has been continuing to slowly recover. Presently he is on 2-3 L O2 supplementation but he is requiring BiPAP intermittently overnight. He has been evaluated by physical therapy and recommended ECF placement. Since he is a [place] patient, I spoke with the physician at the [place] medical facility here and they agreed to accept the patient in the medical wing due to him requiring BiPAP at night. He will then be transitioned to rehabilitation unit there. He has completed antibiotic course for his pneumonia. His WBC count is slightly elevated today due to him being on steroids. He is clinically stable to be discharged from the hospital at this time. Patient also has a history of atrial fibrillation but is not on any anticoagulation due to chronic anemia. He will need follow-up with cardiology as outpatient to reassess and start anticoagulation if needed. Discharge discussed with: patient, case management, cycle consultant - Time Spent with Patient Total time spent providing and/or coordinating discharge services: Greater than 30 minutes (40 min) - Discharge Medications Prescriptions: predniSONE [PredniSONE] 10 mg PO DAILY #2 tablet Home Medications: Acetaminophen [Tylenol] 325 mg PO Q8H PRN 09/03/17 [History] Aspirin 81 mg PO DAILY 09/03/17 [History] Budesonide/Formoterol 160/4.5 [Symbicort 160/4.5] 2 puff IH BID 09/03/17 [History] Cholecalciferol (Vitamin D3) [Vitamin D3] 1,000 mg PO DAILY 09/03/17 [History] Docusate Sodium [Dok] 100 mg PO BID 09/03/17 [History] Gabapentin [Neurontin] 400 mg PO DAILY 09/03/17 [History] Ipratropium/Albuterol Neb [Duoneb] 1 vial IH Q6H PRN 09/03/17 [History] Losartan [Cozaar] 25 mg PO DAILY 09/03/17 [History] Methocarbamol [Robaxin] 500 mg PO Q4H PRN 09/03/17 [History] Quetiapine Fumarate [Seroquel] 400 mg PO BID 09/03/17 [History] Simvastatin [Zocor] 20 mg PO DAILY 09/03/17 [History] dilTIAZem HCl [Diltiazem 24Hr ER] 240 mg PO DAILY 09/03/17 [History] Paroxetine HCl [Paxil] 40 mg PO DAILY 10/14/17 [History] Sucralfate [Carafate] 1 gm PO ACHS 10/14/17 [History] predniSONE [PredniSONE] 4 mg PO DAILY 10/14/17 [History] Roflumilast [Daliresp] 500 mcg PO DAILY 05/02/18 [History] Buspirone HCl [Buspar] 10 mg PO BID 05/03/18 [History] Calcium Carbonate/Vitamin D3 [Calcium 500 + Vit D Caplet] 1 tab PO BID 05/03/18 [History] Denosumab [Prolia (For Outpatient Infusion)] 60 mg SQ Q6M 05/03/18 [History] Levalbuterol HCl [Xopenex Neb] 1.25 mg IH Q4H PRN 05/03/18 [History] Melatonin 3 mg PO HS 05/03/18 [History] Multivit-Min/FA/Lycopen/Lutein [A Thru [employer] Multivit Tab] 1 tab PO DAILY 05/03/18 [History] Pantoprazole Sodium 40 mg PO DAILY 05/03/18 [History] Tiotropium [Spiriva] 18 mcg IH DAILY 05/03/18 [History] predniSONE [PredniSONE] 10 mg PO DAILY #2 tablet 05/14/18 [Rx] Allergies/Adverse Reactions: Allergy/AdvReac Type Severity Reaction Status Date / Time No Known Allergies Allergy Verified 09/03/17 08:21 Date of admission: 05/02/18 21:17 Primary care physician: PCP JOSEPH Consults: 05/06/18 07:57 Consult to Critical Care [CONS] Routine Consulting Provider: Pulm Crit [facility] Sleep Syeda Reason for Consult: Acute on chronic hypoxic/hypercapnic respiratory failure Call Completed: Yes 05/07/18 10:55 Consult to Palliative Care [CONS] Routine Comment: Consulting Provider: Palliative Care Syeda Reason for Consult: End stage COPD Time Notified: 10:50 Call Completed: Yes 05/09/18 14:03 PT [Consult to Physical Therapy] [CONS] Routine Comment: Evaluate, develop and implement POC Reason for Consult: mobility issues Does patient have active BEDREST order?: No Is patient medically & hemodynamically stable?: Yes 05/11/18 12:09 Consult to Occupational Therapy [CONS] Routine Comment: Evaluate, develop and implement POC Reason for Consult: weakness Does patient have active BEDREST order?: No Is patient medically & hemodynamically stable?: Yes Patient assessed for mobility or mobilized this visit?: Yes Discharging clinician: Thomas White Anticipated date of discharge: 05/14/18 - Constitutional Vitals: Temp Pulse Resp BP Pulse Ox 97.8 F 80 16 105/77 96 05/14/18 06:46 05/14/18 06:46 05/14/18 11:33 05/14/18 06:46 05/14/18 11:33 General appearance: Present: cooperative, A&O X 3, pleasant, answers questions appropriately Exam: . - Neck Neck exam general surgery: Present: supple, trachea midline. Absent: lymphadenopathy - Respiratory Respiratory exam: Present: decreased breath sounds (At both bases), prolonged expiratory phase, wheezes (Mild bilateral wheezing). Absent: accessory muscle use, rales, rhonchi - Cardiovascular Cardiovascular exam: Present: RRR, +S1, +S2. Absent: diastolic murmur, gallop, rubs, systolic murmur - Patient Status Disposition: Transfer [facility] Condition: Fair Functional capacity at discharge: independent ambulation Overall status at discharge: patient is progressing back to baseline - Discharge Instructions Instructions: Chronic Obstructive Pulmonary Disease (DC) [facility] With: [facility] [Primary Care Provider] - (at inpatient facility) - Diet and Activity Activity: increase activity as tolerated Diet: advance to your usual diet
--- NOTE | 2018-05-14 13:46 | Physician Discharge Referral ---
ExtendedCare Referral Info Transfer To: [place] Provider in Charge after Transfer: PCP Institutional Level of Care: Skilled - Diagnosis (1) Acute exacerbation of chronic obstructive airways disease Priority: Primary Status: Acute (2) Acute respiratory failure with hypoxia and hypercapnia Priority: Secondary Status: Resolved (3) Mucopurulent chronic bronchitis Priority: Secondary Status: Acute (4) Anemia Priority: Secondary Status: Chronic (5) Hypertension Priority: Secondary Status: Chronic (6) Goals of care, counseling/discussion Priority: Secondary Status: Acute (7) Atrial fibrillation Priority: Secondary Status: Chronic Prognosis: Fair Aware of Diagnosis: Patient Aware of Prognosis: Patient - Transfer Medications Prescriptions: predniSONE [PredniSONE] 10 mg PO DAILY #2 tablet Home Medications: Acetaminophen [Tylenol] 325 mg PO Q8H PRN 09/03/17 [History] Aspirin 81 mg PO DAILY 09/03/17 [History] Budesonide/Formoterol 160/4.5 [Symbicort 160/4.5] 2 puff IH BID 09/03/17 [History] Cholecalciferol (Vitamin D3) [Vitamin D3] 1,000 mg PO DAILY 09/03/17 [History] Docusate Sodium [Dok] 100 mg PO BID 09/03/17 [History] Gabapentin [Neurontin] 400 mg PO DAILY 09/03/17 [History] Ipratropium/Albuterol Neb [Duoneb] 1 vial IH Q6H PRN 09/03/17 [History] Losartan [Cozaar] 25 mg PO DAILY 09/03/17 [History] Methocarbamol [Robaxin] 500 mg PO Q4H PRN 09/03/17 [History] Quetiapine Fumarate [Seroquel] 400 mg PO BID 09/03/17 [History] Simvastatin [Zocor] 20 mg PO DAILY 09/03/17 [History] dilTIAZem HCl [Diltiazem 24Hr ER] 240 mg PO DAILY 09/03/17 [History] Paroxetine HCl [Paxil] 40 mg PO DAILY 10/14/17 [History] Sucralfate [Carafate] 1 gm PO ACHS 10/14/17 [History] predniSONE [PredniSONE] 4 mg PO DAILY 10/14/17 [History] Roflumilast [Daliresp] 500 mcg PO DAILY 05/02/18 [History] Buspirone HCl [Buspar] 10 mg PO BID 05/03/18 [History] Calcium Carbonate/Vitamin D3 [Calcium 500 + Vit D Caplet] 1 tab PO BID 05/03/18 [History] Denosumab [Prolia (For Outpatient Infusion)] 60 mg SQ Q6M 05/03/18 [History] Levalbuterol HCl [Xopenex Neb] 1.25 mg IH Q4H PRN 05/03/18 [History] Melatonin 3 mg PO HS 05/03/18 [History] Multivit-Min/FA/Lycopen/Lutein [A Thru Z Select Multivit Tab] 1 tab PO DAILY 05/03/18 [History] Pantoprazole Sodium 40 mg PO DAILY 05/03/18 [History] Tiotropium [Spiriva] 18 mcg IH DAILY 05/03/18 [History] predniSONE [PredniSONE] 10 mg PO DAILY #2 tablet 05/14/18 [Rx] Allergies/Adverse Reactions: Allergy/AdvReac Type Severity Reaction Status Date / Time No Known Allergies Allergy Verified 09/03/17 08:21 - Respiratory Orders Oxygen / L per min (2-3), Other (Use BIPAP at night and as needed) Smoking Cessation: Smoking cessation has been advised. For more information, call the [employer] Tobacco Quit Line at 0-652-OWIE-NOW. - Advance Directives Code Status: DNR-Arrest/Don't Intubate - Rehabiliation Orders Rehab Potential: Fair Rehab Orders: Evaluation for Physical Therapy, Evaluation for Occupational Therapy - Diet Orders Cardiac CERTIFICATION: I certify that the transfer of the above named patient to an Extended Care Facility is necessary for the continuing treatment of the diagnosis listed. The above information is true and accurate reflection of patient's current condition. Confidential - Redisclosure prohibited without a patient's written consent.
== END 2018-05-14 15:03 | DRG 208 ==
LOC: SUATTDRO 21:17 → ICNU 21:17 → 2ANU 05-04 18:09 → ICNU 05-06 06:06 → 2NENU 05-07 16:16
PROVIDERS: ADMIT Internal Medicine; ATTEND Internal Medicine

== ENCOUNTER 2018-06-19 19:21 | Inpatient (IN) ==
[2018-06-19] MEDS ORDERED: 0.9 % Sodium Chloride 250 ML IVC ONE (23:40)
--- NOTE | 2018-06-20 01:10 | Internal Med History&Physical ---
<Aaron Moncadat W - Last Filed: 06/20/18 02:17> Date of Encounter: 06/20/18 Time of Encounter: 01:08 Internal Medicine - H&P: HPI Chief complaint: Difficulty breathing Admitted From: Hospital to Hospital Transfer History of present illness: Mr. Campbell is a 72 year old male past medical history of COPD, hypertension, atrial fibrillation presented to [facility] from his nursing care facility due to lethargy and difficulty breathing. The to have altered mental status due to elevated carbon dioxide levels. She was also found to have A. fib with RVR. Patient states he had confusion post presentation to [facility]. However now he denies any confusion. Patient is laying in bed on BiPAP. Currently patient states he is not short of breath but BiPAP is helping. Patient still complaining of a productive cough. Has vizcaino mucus. Patient currently denies any chest pain states he did have some earlier. Patient denies current palpitations. Patient also denies fever, chills, abdominal pain, nausea, vomiting, diarrhea, weakness, numbness or tingling, dizziness, rash. Past Med Surg Social Fam HX - Past Medical History Medical history: COPD, GERD, hyperlipidemia, hypertension, other Additional medical history: Tardive dyskinesia Diverticulitis. Tremor Arthralgia Knee. Cervical Myelopathy Pneumonia. Chronic pain syndrome Degeration of Lumbar/sacral. constipation Hyperkalemia. cognitive disorder Organic brain disorder. Anemia Hallucinations Dyspepsia. Pulmomary [place] lesion. Neoplasm f the Trachea. PE Psychiatric history: anxiety - Past Surgical History Surgical History: other Additional surgical history: foot surgery and ear surgery - Social History Smoking Status: Former smoker Smokeless Tobacco Status: No Alcohol use: none Drug use: none Internal Medicine - H&P: Meds Acetaminophen [Tylenol] 325 mg PO Q8H PRN 09/03/17 [History] Aspirin 81 mg PO DAILY 09/03/17 [History] Budesonide/Formoterol 160/4.5 [Symbicort 160/4.5] 2 puff IH BID 09/03/17 [History] Docusate Sodium [Dok] 100 mg PO BID 09/03/17 [History] Gabapentin [Neurontin] 400 mg PO DAILY 09/03/17 [History] Ipratropium/Albuterol Neb [Duoneb] 1 vial IH Q6H PRN 09/03/17 [History] Losartan [Cozaar] 25 mg PO DAILY 09/03/17 [History] Methocarbamol [Robaxin] 500 mg PO Q4H PRN 09/03/17 [History] Quetiapine Fumarate [Seroquel] 400 mg PO BID 09/03/17 [History] Simvastatin [Zocor] 20 mg PO DAILY 09/03/17 [History] dilTIAZem HCl [Diltiazem 24Hr ER] 240 mg PO DAILY 09/03/17 [History] Paroxetine HCl [Paxil] 40 mg PO DAILY 10/14/17 [History] Sucralfate [Carafate] 1 gm PO ACHS 10/14/17 [History] predniSONE [PredniSONE] 4 mg PO DAILY 10/14/17 [History] Roflumilast [Daliresp] 500 mcg PO DAILY 05/02/18 [History] Buspirone HCl [Buspar] 10 mg PO BID 05/03/18 [History] Calcium Carbonate/Vitamin D3 [Calcium 500 + Vit D Caplet] 1 tab PO BID 05/03/18 [History] Denosumab [Prolia (For Outpatient Infusion)] 60 mg SQ Q6M 05/03/18 [History] Levalbuterol HCl [Xopenex Neb] 1.25 mg IH Q4H PRN 05/03/18 [History] Melatonin 3 mg PO HS 05/03/18 [History] Multivit-Min/FA/Lycopen/Lutein [A Thru Z Select Multivit Tab] 1 tab PO DAILY 05/03/18 [History] Pantoprazole Sodium 40 mg PO BID 05/03/18 [History] Tiotropium [Spiriva] 18 mcg IH DAILY 05/03/18 [History] Cholecalciferol (Vitamin D3) [Vitamin D] 1,000 unit PO DAILY 06/20/18 [History] Rivaroxaban [Xarelto] 1 tab PO DAILY 06/20/18 [History] Allergy/AdvReac Type Severity Reaction Status Date / Time No Known Allergies Allergy Verified 06/18/18 18:10 All Systems PM: A 10-system review of systems was performed and is negative for pertinent findings except as documented above in the HPI. - Constitutional Constitutional: as per HPI - EENT Eyes: no change in vision - Cardiovascular Cardiovascular ROS IM: as per HPI - Respiratory Respiratory: as per HPI - Gastrointestinal Gastrointestinal: as per HPI - Genitourinary Genitourinary ROS male: no dysuria - Musculoskeletal Musculoskeletal ROS IM: as per HPI - Integumentary Integumentary IM: as per HPI - Neurological Neurological ROS: as per HPI - Psychiatric Psychiatric: as per HPI - Endocrine Endocrine IM: as per HPI - Constitutional Vitals: Temp Pulse Resp BP Pulse Ox 98.5 F 98 24 82/38 97 06/19/18 22:58 06/19/18 22:58 06/19/18 23:25 06/19/18 22:58 06/19/18 23:25 General appearance: Present: A&O X 3, no acute distress, obese Exam: Patient is laying in bed. Is placed on BiPAP. He is pleasant - Head Head exam: Present: atraumatic, normocephalic - Eye Eye exam: Present: PERRL, conjuntiva pink, sclera anicteric Pupils: Present: PERRL - Neck Neck exam general surgery: Present: supple, trachea midline. Absent: lymphadenopathy - Respiratory Respiratory exam: Present: CTAB, wheezes. Absent: accessory muscle use, rales, rhonchi - Cardiovascular Cardiovascular exam: Present: RRR, +S1, +S2. Absent: diastolic murmur, gallop, rubs, systolic murmur - GI/Abdominal GI/Abdominal exam: Present: normal bowel sounds, soft, no peritoneal signs. Absent: distended, tenderness - Extremities Exam Extremities exam: Present: warm, radial pulses palpable and symmetrical. Absent: calf tenderness, cyanotic, pedal edema - Neurological Exam Neurological exam: Present: oriented X3, no focal deficits. Absent: pronater drift, facial droop, speech deficit - Psychiatric Psychiatric exam: Present: normal affect, normal mood - Skin Skin exam: Present: dry, intact - Assessment and plan (1) Acute respiratory failure with hypercapnia Current Visit: Yes Status: Acute Assessment and plan: Patient brought in the [facility] ED for shortness of breath Initial arterial blood gas found pH 7.33 CO2 90 PO2 105 HCO3 of 48 Currently on BiPAP Sats at 97% Plan: Levofloxacin Solu-Medrol Continue BiPAP Duo nebs Repeat labs, including ABG Continue to monitor (2) Atrial fibrillation with RVR Current Visit: No Status: Acute Assessment and plan: Patient found to be in A. fib at [facility] Currently rate controlled with diltiazem Was given digoxin at [facility] Given xarelto at [place] Plan: Diltiazem drip continue Xarelto Continue cardiac monitoring Labs including TSH (3) Acute exacerbation of chronic obstructive airways disease Current Visit: No Status: Acute Assessment and plan: Plan as #1 above (4) Elevated troponin I level Current Visit: No Status: Acute Assessment and plan: Troponins 0.13 repeat at 0.10 Likely due to demand ischemia Repeat troponin in AM (5) DVT prophylaxis Current Visit: No Status: Acute Assessment and plan: on Xeralto - Time Spent With Patient Total time spent is greater than 50% in coordination of care (as documented) at patient's floor/unit and/or counseling patient: <Kg Miranda - Last Filed: 06/20/18 06:35> Date of Encounter: 06/20/18 Internal Medicine - H&P: HPI History of present illness: Mr. Campbell is a 72 year old male All Systems PM: A 10-system review of systems was performed and is negative for pertinent findings except as documented above in the HPI. - Constitutional Vitals: Temp Pulse Resp BP Pulse Ox 98.5 F 87 20 131/54 96 06/20/18 05:04 06/20/18 05:04 06/20/18 05:04 06/20/18 05:04 06/20/18 05:04 Internal Med - H&P Results - Labs CBC & Chem 7: 06/20/18 03:15 06/20/18 03:15 Labs: Short CBC 06/20/18 Range/Units 03:15 WBC 11.6 H (4.3-11.1) K/mcL Hgb 9.7 L (12.9-16.9) g/dL Hct 33.4 L (37.5-50.1) % Plt Count 291 (140-400) K/mcL Neutrophils # 10.3 H (1.6-8.9) K/mcL BMP 06/20/18 03:15 Sodium 140 Potassium 4.8 Chloride 97 L Carbon Dioxide 40 H* BUN 27 H Creatinine 0.69 L Glucose 172 H Calcium 9.1 Cardiac Enzymes 06/20/18 Range/Units 03:15 Troponin I 0.07 H* (< 0.04) ng/mL Liver Function 06/20/18 Range/Units 03:15 Total Bilirubin 0.2 L (0.3-1.0) mg/dL AST 21 (13-39) Units/L ALT 28 (7-52) Units/L Alkaline Phosphatase 52 (34-104) Units/L Albumin 3.6 (3.5-5.7) g/dL - ABG Interpretation ABG results: 06/20/18 02:01 ABG pH 7.24 L ABG pCO2 101 H* ABG pO2 109 H ABG HCO3 44 H ABG Total CO2 47 H ABG O2 Saturation 97 ABG Base Excess 13 H - Time Spent With Patient Total time spent is greater than 50% in coordination of care (as documented) at patient's floor/unit and/or counseling patient: - Attending Attestation I performed a history and physical examination of the patient and discussed his management with the resident. I reviewed the resident's note and review the assessment and plan of care. In short patient is a 72[facility]year-old [facility] patient with a past medical history of A. fib and COPD among others who initially admitted to [facility] with worsening dyspnea; found to be in acute hypoxic hypercapnic respiratory failure with a PCO2 of 90 likely secondary to COPD exacerbation and was started on treament for the same.. Patient was also found to be in A. fib with RVR. Patient was placed on BiPAP, started on a Cardizem drip as well as anticoagulation with Xarelto and subsequently transferred after one day of hospitalization. On arrival patient was in mild respiratory distress on nasal cannula; blood pressure in the mid 80s systolic with a heart rate in the 130s and A. fib. Repeat PCO2 was found to be 101. Patient was placed back on BiPAP. He was given a bolus of 250 with improvement in blood pressure. Cardizem drip was restarted. After trial on BIPAP, repeat CO2 was 106 despite good tidal volumes. Instructed respiratory to switch to AVAPS. Mentation remains good. Will obtain Cardiology consult and echo. Consider Pulm consult if no improvement in hypercarbia.
[2018-06-20] MEDS: Ipratropium/Albuterol Neb 3 ML IH SCH ×7 (01:52→23:59)
[2018-06-20 02:05] LABS: ABG Base Excess 13 mEq/L (-2 to 3); ABG HCO3 44 mEq/L (21-27); ABG Oxygen Saturation 97 % (95-98); ABG PCO2 101 mmHg (35-45); ABG PH 7.24 pH Units (7.32-7.45); ABG PO2 109 mmHg (85-104); ABG TCO2 47 mEq/L (20-26); Blood Gas Modality BiLevel; Blood Gas PEEP 7 cm H2O
[2018-06-20] MEDS ORDERED: Acetaminophen 325 MG TABLET PO PRN (02:11)
[2018-06-20 03:47] LABS: Basophils % 0.1 %; Hematocrit 33.4 % (37.5-50.1); Hemoglobin 9.7 g/dL (12.9-16.9); Immature Granulocytes % 0.4 % (0-4); Lymphocytes # 0.6 K/mcL (0.6-4.6); Lymphocytes % 5.3 %; Mean Platelet Volume 10.3 fL (9.4-12.4); Monocytes # 0.7 K/mcL (0.0-1.3); Monocytes % 5.7 %; Neutrophils # 10.3 K/mcL (1.6-8.9); Platelet Count 291 K/mcL (140-400); Red Blood Count 3.34 M/mcL (4.19-5.50); Red Cell Distribution Width 13.2 % (11.5-14.5); Segmented Neutrophils % 88.5 %
[2018-06-20] MEDS: Melatonin 3 MG TABLET PO SCH ×2 (04:01→20:02)
[2018-06-20 04:14] LABS: Alanine Aminotransferase 28 Units/L (7-52); Albumin 3.6 g/dL (3.5-5.7); Albumin/Globulin Ratio 1.4 (1.1-2.2); Alkaline Phosphatase 52 Units/L (34-104); Aspartate Amino Transferase 21 Units/L (13-39); BUN/Creatinine Ratio 39 (6-26); Bilirubin,Total 0.2 mg/dL (0.3-1.0); Blood Urea Nitrogen 27 mg/dL (8-23); Calcium 9.1 mg/dL (8.6-10.3); Carbon Dioxide 40 mEq/L (23-29); Chloride 97 mEq/L (98-107); Globulin 2.6 g/dL (2.4-3.5); Glucose 172 mg/dL (70-105); Osmolality,Calculated 299 (280-300); Potassium 4.8 mEq/L (3.5-5.1); Sodium 140 mEq/L (136-145); Total Protein 6.2 g/dL (6.4-8.9); eGFR For Non-African Americans > 60 (> 60)
[2018-06-20 04:23] LABS: Thyroid Stimulating Hormone 0.256 mcIU/mL (0.340-5.600)
[2018-06-20 06:04] LABS: ABG Base Excess 14 mEq/L (-2 to 3); ABG HCO3 45 mEq/L (21-27); ABG Oxygen Saturation 98 % (95-98); ABG PCO2 106 mmHg (35-45); ABG PH 7.24 pH Units (7.32-7.45); ABG PO2 134 mmHg (85-104); ABG TCO2 48 mEq/L (20-26); Blood Gas Modality BiLevel
[2018-06-20] MEDS ORDERED: Levalbuterol Neb 1.25 MG/3 ML IH PRN (07:58)
[2018-06-20] MEDS ORDERED: Perflutren Lipid Microsphere 1.3 ML in 0.9 % Sodium Chloride 8.7 ML IVP ONE ×2 (08:17→08:45)
[2018-06-20] MEDS: Gabapentin 400 MG CAPSULE PO SCH (09:05)
[2018-06-20] MEDS: *HR* Rivaroxaban 10 MG TABLET PO SCH (09:05)
[2018-06-20] MEDS: Diltiazem CD (24hr) 240 MG CAPSULE PO SCH (09:06)
[2018-06-20] MEDS: Aspirin 81 MG TAB.CHEW PO SCH (09:06)
[2018-06-20] MEDS: Levofloxacin 500 MG/100 ML 500 MG/100 ML BAG IVPB SCH (09:06)
[2018-06-20 10:26] LABS: Adenovirus Not Detected (Not Detect); Bordetella Pertussis Not Detected (Not Detect); Chlamydophila pneumoniae Not Detected (Not Detect); Coronavirus 229E Not Detected (Not Detect); Coronavirus HKU1 Not Detected (Not Detect); Coronavirus NL63 Not Detected (Not Detect); Coronavirus OC43 Not Detected (Not Detect); Human Metapneumovirus Not Detected (Not Detect); Human Rhinovirus/Enterovirus Not Detected (Not Detect); Influenza A Subtype 2009 H1 Not Detected (Not Detect); Influenza A Untypeable Not Detected (Not Detect); Influenza B Not Detected (Not Detect); Mycoplasma pneumoniae Not Detected (Not Detect); Parainfluenza Virus 1 Not Detected (Not Detect); Parainfluenza Virus 2 Not Detected (Not Detect); Parainfluenza Virus 3 Not Detected (Not Detect); Parainfluenza Virus 4 Not Detected (Not Detect); Respiratory Syncytial Virus Not Detected (Not Detect)
[2018-06-20] MEDS: MethylPREDNISolone 40 MG/ML VIAL IVP SCH ×3 (10:48→23:29)
--- NOTE | 2018-06-20 14:36 | Event Note ---
Date of Encounter: 06/20/18 Time of Encounter: 11:15 H&P reviewed. 82 with history of COPD, hypertension, atrial fibrillation is admitted for acute hypercarbic respiratory failure and A. fib with RVR. Troponin also mildly elevated but trending down to 0.07 this morning. No obvious consolidation was identified on chest x-ray so will proceed with CT chest. Continue Levaquin, IV Solu-Medrol, and bronchodilators. Continue diltiazem drip and restart home meds for A. fib. Anticoagulated with Xarelto. Check respiratory viral panel and echocardiogram.
[2018-06-20 18:34] LABS: ABG Base Excess 17 mEq/L (-2 to 3); ABG HCO3 49 mEq/L (21-27); ABG Oxygen Saturation 98 % (95-98); ABG PCO2 106 mmHg (35-45); ABG PH 7.27 pH Units (7.32-7.45); ABG PO2 128 mmHg (85-104); ABG TCO2 > 50 mEq/L (20-26)
[2018-06-21] MEDS: Ipratropium/Albuterol Neb 3 ML IH SCH ×5 (04:31→20:21)
[2018-06-21 07:33] LABS: Hemoglobin 9.5 g/dL (12.9-16.9); Mean Platelet Volume 10.3 fL (9.4-12.4)
[2018-06-21 07:34] LABS: Hematocrit 32.5 % (37.5-50.1); Immature Granulocytes % 0.6 % (0-4); Lymphocytes # 0.3 K/mcL (0.6-4.6); Lymphocytes % 3.5 %; Mean Corpuscular HGB Conc 29.2 g/dL (31.6-35.5); Mean Corpuscular Hemoglobin 29.2 pg (28.0-33.3); Monocytes # 0.3 K/mcL (0.0-1.3); Monocytes % 2.9 %; Platelet Count 256 K/mcL (140-400); Red Blood Count 3.25 M/mcL (4.19-5.50); Red Cell Distribution Width 13.4 % (11.5-14.5)
[2018-06-21 07:35] LABS: VBG HCO3 43 mEq/L (21-27); VBG PCO2 71 mmHg (41-51); VBG PH 7.39 pH Units (7.32-7.42); VBG PO2 142 mmHg (25-50)
[2018-06-21 07:45] LABS: Neutrophils # 8.7 K/mcL (1.6-8.9)
[2018-06-21 07:53] LABS: BUN/Creatinine Ratio 48 (6-26); Blood Urea Nitrogen 36 mg/dL (8-23); Calcium 9.1 mg/dL (8.6-10.3); Carbon Dioxide 43 mEq/L (23-29); Chloride 93 mEq/L (98-107); Glucose 209 mg/dL (70-105); Osmolality,Calculated 304 (280-300); Potassium 4.8 mEq/L (3.5-5.1); Sodium 140 mEq/L (136-145); eGFR For Non-African Americans > 60 (> 60)
[2018-06-21 07:57] LABS: Hypochromasia Present (Not Present)
[2018-06-21] MEDS: Gabapentin 400 MG CAPSULE PO SCH (09:11)
[2018-06-21] MEDS: MethylPREDNISolone 40 MG/ML VIAL IVP SCH ×2 (09:11→17:22)
[2018-06-21] MEDS: *HR* Rivaroxaban 10 MG TABLET PO SCH (09:11)
[2018-06-21] MEDS: Diltiazem CD (24hr) 240 MG CAPSULE PO SCH (09:11)
[2018-06-21] MEDS: Levofloxacin 500 MG/100 ML 500 MG/100 ML BAG IVPB SCH (09:11)
[2018-06-21] MEDS: Aspirin 81 MG TAB.CHEW PO SCH (09:11)
[2018-06-21] MEDS ORDERED: Methocarbamol 500 MG TABLET PO PRN (11:06)
--- NOTE | 2018-06-21 11:07 | Internal Med Progress Note ---
Hospitalist Progress Note - Encounter Date of Encounter: 06/21/18 Time of Encounter: 09:15 - Subjective Interval History: Shortness of breath improved. No chest pain, worsening cough, palpitation, or leg swelling. Wants to eat today. No fever/chills overnight. - Exam Vitals: Temp Pulse Resp BP Pulse Ox 98.2 F 89 14 131/82 95 06/21/18 07:54 06/21/18 07:54 06/21/18 07:54 06/21/18 07:54 06/21/18 07:54 Exam: General: Alert and oriented, mild respiratory distress. Cardiovascular:Normal S1 & S2, No JVD. Pulse irregular but rate normalized Lungs: Diminished lung sounds with end expiratory wheezes bilaterally Abdomen:Soft, non-tender, no rigidity. Neurological:Normal cognition and motor skills. Non-focal - Assessment and Plan (1) Acute respiratory failure with hypercapnia Current Visit: Yes Status: Acute Assessment and Plan: Secondary to COPD exacerbation No evidence of pneumonia, respiratory viral panel negative. Blood gas normalized after prolonged BiPAP therapy, will use when necessary basis today Continue IV Solu-Medrol, bronchodilators, and Levaquin. (2) Acute exacerbation of chronic obstructive airways disease Current Visit: Yes Status: Acute Assessment and Plan: As above (3) Atrial fibrillation with RVR Current Visit: Yes Status: Acute Assessment and Plan: better controlled with improvement in his respiratory status continues to require diltiazem drip overnight resume home meds, titrate off dilt gtt if possible Continue Xarelto for AC (4) Elevated troponin I level Current Visit: No Status: Acute Assessment and Plan: Likely demand ischemia in the setting of acute resting failure and A. fib with RVR. Troponin downtrended to 0.07. Echocardiogram did reveal EF 45-50% with mild global LV systolic dysfunction and moderate LV diastolic dysfunction. No prior Echo available on file, will repeat limited one prior to discharge once cardiorespiratory status improves. Resume home dose of aspirin and statin. (5) Hypertension Current Visit: No Status: Chronic Assessment and Plan: Resume home meds (6) DVT prophylaxis Current Visit: No Status: Acute Assessment and Plan: On Xarelto - Time Spent with Patient Total time spent is greater than 50% in coordination of care (as documented) at patient's floor/unit and/or counseling patient: Plan of Care Discussed with: patient Internal Medicine: Result - Labs CBC & Chem 7: 06/21/18 07:06 06/21/18 07:06 Labs: Short CBC 06/21/18 Range/Units 07:06 WBC 9.4 (4.3-11.1) K/mcL Hgb 9.5 L (12.9-16.9) g/dL Hct 32.5 L (37.5-50.1) % Plt Count 256 (140-400) K/mcL Neutrophils # 8.7 (1.6-8.9) K/mcL BMP 06/21/18 07:06 Sodium 140 Potassium 4.8 Chloride 93 L Carbon Dioxide 43 H* BUN 36 H Creatinine 0.75 Glucose 209 H Calcium 9.1 - ABG Interpretation ABG results: ABG ABG pH 7.27 pH Units (7.32-7.45) L 06/20/18 18:27 ABG pCO2 106 mmHg (35-45) H* 06/20/18 18:27 ABG pO2 128 mmHg (85-104) H 06/20/18 18:27 ABG O2 Saturation 98 % (95-98) 06/20/18 18:27 - Impressions Impressions Echocardiogram 06/20/18 04:20 Impressions: LVEF 45-50%. Mild global left ventricular systolic dysfunction. Moderate left ventricular diastolic dysfunction. Normal right ventricular structure and function. Mild tricuspid regurgitation. Mild pulmonary hypertension. Left Ventricular Wall Motion: Rest Echo Findings The apex, apical inferior, mid inferior, basal inferior, apical anterior, mid anterior, basal anterior, apical septal, mid inferior septal, basal inferior septal, apical lateral, mid anterior lateral, basal anterior lateral, mid anterior septal, mid inferior lateral, basal anterior septal and basal inferior lateral barajas were hypokinetic. Findings: Study Quality * Technically adequate exam. ECG Findings * Atrial flutter. Left Ventricle * LVEF 45-50%. * Normal LV chamber size and wall thickness. * Mild global left ventricular systolic dysfunction. * Moderate left ventricular diastolic dysfunction. * Definity echo contrast was used. * There is no LV thrombus. Right Ventricle * Normal right ventricular structure and function. Left Atrium * Normal left atrial size. Right Atrium * Normal right atrial size. Interatrial Septum * Interatrial septum not well evaluated. Aortic Valve * Aortic valve not well visualized. * No aortic stenosis. * No aortic regurgitation. Mitral Valve * Normal mitral valve structure. * No mitral regurgitation. * Trace mitral regurgitation. Tricuspid Valve * Normal tricuspid valve structure. * No tricuspid stenosis. * Mild tricuspid regurgitation. * Estimated RVSP is 42 mmHg. * Estimated RA pressure is 8 mmHg. * Mild pulmonary hypertension. Pulmonic Valve * Pulmonic valve is not well visualized. * No pulmonic stenosis. * No pulmonic regurgitation. Aorta * Normally sized aortic root. Pericardium * The pericardium appears normal. IVC * The IVC is dilated. * > 50% respiratory change Chest CT 06/20/18 08:03 IMPRESSION: 1. Evaluation of the lungs is limited by motion artifact. 2. Subpleural nodule in the left lower lobe measures up to 1.6 x 1.3 cm. Short-term follow-up CT of the chest with intravenous contrast is recommended once patient can appropriately breath hold. 3. Moderate emphysematous changes. 4. Coronary atherosclerosis. D/ / 06/20/2018 15:34:47 Roberto Rodriguez MD / bridgett Interpreting Provider: Roberto Rodriguez MD Consult Discharge Plan - Plan [facility]errals: [facility] [Primary Care Provider] - (5) Hypertension Qualifiers: Hypertension type: essential hypertension Qualified Code(s): I10 - Essential (primary) hypertension
[2018-06-21] MEDS: Budesonide/Formoterol 160/4.5 1 PUFF INH IH SCH (20:21)
[2018-06-21] MEDS: Melatonin 3 MG TABLET PO SCH (21:04)
[2018-06-22] MEDS: Ipratropium/Albuterol Neb 3 ML IH SCH ×6 (00:21→19:32)
[2018-06-22] MEDS: MethylPREDNISolone 40 MG/ML VIAL IVP SCH ×3 (00:24→16:30)
[2018-06-22 07:01] LABS: Basophils % 0.1 %; Hematocrit 32.6 % (37.5-50.1); Hemoglobin 9.6 g/dL (12.9-16.9); Immature Granulocytes % 0.5 % (0-4); Lymphocytes # 0.4 K/mcL (0.6-4.6); Mean Corpuscular HGB Conc 29.4 g/dL (31.6-35.5); Mean Corpuscular Hemoglobin 29.1 pg (28.0-33.3); Mean Corpuscular Volume 98.8 fL (83.0-100.0); Mean Platelet Volume 10.6 fL (9.4-12.4); Monocytes # 0.4 K/mcL (0.0-1.3); Monocytes % 3.5 %; Neutrophils # 11.9 K/mcL (1.6-8.9); Platelet Count 278 K/mcL (140-400); Red Cell Distribution Width 13.5 % (11.5-14.5); Segmented Neutrophils % 92.9 %
[2018-06-22 07:25] LABS: BUN/Creatinine Ratio 51 (6-26); Blood Urea Nitrogen 48 mg/dL (8-23); Calcium 9.6 mg/dL (8.6-10.3); Carbon Dioxide 43 mEq/L (23-29); Chloride 92 mEq/L (98-107); Glucose 265 mg/dL (70-105); Magnesium 1.9 mg/dL (1.6-2.6); Osmolality,Calculated 310 (280-300); Potassium 4.6 mEq/L (3.5-5.1); Sodium 139 mEq/L (136-145); eGFR For Non-African Americans > 60 (> 60)
[2018-06-22] MEDS: Budesonide/Formoterol 160/4.5 1 PUFF INH IH SCH ×2 (07:38→19:32)
[2018-06-22] MEDS: Gabapentin 400 MG CAPSULE PO SCH (08:38)
[2018-06-22] MEDS: Levofloxacin 500 MG/100 ML 500 MG/100 ML BAG IVPB SCH (08:39)
[2018-06-22] MEDS: Aspirin 81 MG TAB.CHEW PO SCH (08:39)
[2018-06-22] MEDS: *HR* Rivaroxaban 10 MG TABLET PO SCH (08:39)
[2018-06-22] MEDS: Diltiazem CD (24hr) 240 MG CAPSULE PO SCH (08:40)
[2018-06-22] MEDS ORDERED: Diltiazem CD (24hr) 120 MG CAPSULE PO ONE (09:45)
--- NOTE | 2018-06-22 09:56 | Internal Med Progress Note ---
Hospitalist Progress Note - Encounter Date of Encounter: 06/22/18 Time of Encounter: 08:30 - Subjective Interval History: Was able to come off BiPAP 2-3 hours at time yesterday with mild improvement in his SOB. No fever/chills overnight. Patient continues to require Cardizem drip but the rate has been decreased to 5 mg per hour. - Exam Vitals: Temp Pulse Resp BP Pulse Ox 97.9 F 105 18 126/76 95 06/22/18 07:33 06/22/18 07:33 06/22/18 07:33 06/22/18 07:33 06/22/18 07:33 Exam: General: Alert and oriented, mild respiratory distress. Cardiovascular:Normal S1 & S2, No JVD. Pulse irregular but rate normalized Lungs: Slightly improved aeration, diminished lung sounds with end expiratory wheezes bilaterally Abdomen:Soft, non-tender, no rigidity. Neurological:Normal cognition and motor skills. Non-focal - Assessment and Plan (1) Acute respiratory failure with hypercapnia Current Visit: Yes Status: Acute Assessment and Plan: Secondary to COPD exacerbation No evidence of pneumonia, respiratory viral panel negative. Blood gas normalized after prolonged BiPAP therapy, continue to use BiPaP PRN Continue IV Solu-Medrol, bronchodilators, and Levaquin D3 (2) Atrial fibrillation with RVR Current Visit: Yes Status: Acute Assessment and Plan: better controlled with improvement in his respiratory status continues to require diltiazem drip but the rate is now down to 5 mg per hour Increase by mouth Cardizem to 360 mg QD, titrate off gtt if possible Continue Xarelto for AC (3) Acute exacerbation of chronic obstructive airways disease Current Visit: Yes Status: Acute Assessment and Plan: As above (4) Elevated troponin I level Current Visit: No Status: Acute Assessment and Plan: Likely demand ischemia in the setting of acute resting failure and A. fib with RVR. Troponin downtrended to 0.07. Echocardiogram did reveal EF 45-50% with mild global LV systolic dysfunction and moderate LV diastolic dysfunction. No prior Echo available on file, may be to repeat limited one tomorrow if HR continues to improve and gtt titrated off Resume home dose of aspirin and statin. (5) Hypertension Current Visit: No Status: Chronic Assessment and Plan: Controlled on home meds (6) DVT prophylaxis Current Visit: No Status: Acute Assessment and Plan: On Xarelto - Time Spent with Patient Total time spent is greater than 50% in coordination of care (as documented) at patient's floor/unit and/or counseling patient: Plan of Care Discussed with: patient Internal Medicine: Result - Labs CBC & Chem 7: 06/22/18 05:55 06/22/18 05:55 Labs: Short CBC 06/22/18 Range/Units 05:55 WBC 12.8 H (4.3-11.1) K/mcL Hgb 9.6 L (12.9-16.9) g/dL Hct 32.6 L (37.5-50.1) % Plt Count 278 (140-400) K/mcL Neutrophils # 11.9 H (1.6-8.9) K/mcL BMP 06/22/18 05:55 Sodium 139 Potassium 4.6 Chloride 92 L Carbon Dioxide 43 H* BUN 48 H Creatinine 0.95 Glucose 265 H Calcium 9.6 - ABG Interpretation ABG results: ABG ABG pH 7.27 pH Units (7.32-7.45) L 06/20/18 18:27 ABG pCO2 106 mmHg (35-45) H* 06/20/18 18:27 ABG pO2 128 mmHg (85-104) H 06/20/18 18:27 ABG O2 Saturation 98 % (95-98) 06/20/18 18:27 Consult Discharge Plan - Plan [facility]errals: [facility] [Primary Care Provider] - (5) Hypertension Qualifiers: Hypertension type: essential hypertension Qualified Code(s): I10 - Essential (primary) hypertension
[2018-06-22] MEDS: Levalbuterol Neb 1.25 MG/3 ML IH SCH ×3 (22:01→23:38)
[2018-06-22] MEDS: Melatonin 3 MG TABLET PO SCH (22:10)
[2018-06-22] MEDS: Tobramycin for INHALATION 300 MG/5 ML AMPUL IH SCH (22:13)
[2018-06-23] MEDS: MethylPREDNISolone 40 MG/ML VIAL IVP SCH ×5 (00:27→23:31)
[2018-06-23] MEDS: Levalbuterol Neb 1.25 MG/3 ML IH SCH ×6 (03:51→23:54)
[2018-06-23 06:29] LABS: Basophils % 0.1 %; Hematocrit 32.8 % (37.5-50.1); Hemoglobin 9.5 g/dL (12.9-16.9); Immature Granulocytes % 0.8 % (0-4); Lymphocytes # 0.2 K/mcL (0.6-4.6); Lymphocytes % 1.9 %; Mean Corpuscular Hemoglobin 29.1 pg (28.0-33.3); Mean Corpuscular Volume 100.6 fL (83.0-100.0); Mean Platelet Volume 10.4 fL (9.4-12.4); Monocytes # 0.4 K/mcL (0.0-1.3); Monocytes % 3.8 %; Platelet Count 248 K/mcL (140-400); Red Blood Count 3.26 M/mcL (4.19-5.50); Red Cell Distribution Width 13.8 % (11.5-14.5); Segmented Neutrophils % 93.4 %
[2018-06-23 06:52] LABS: BUN/Creatinine Ratio 62 (6-26); Blood Urea Nitrogen 44 mg/dL (8-23); Calcium 9.6 mg/dL (8.6-10.3); Carbon Dioxide > 45 mEq/L (23-29); Chloride 92 mEq/L (98-107); Glucose 249 mg/dL (70-105); Osmolality,Calculated 310 (280-300); Potassium 4.9 mEq/L (3.5-5.1); Sodium 140 mEq/L (136-145); eGFR For Non-African Americans > 60 (> 60)
[2018-06-23] MEDS: Levofloxacin 500 MG/100 ML 500 MG/100 ML BAG IVPB SCH (07:59)
[2018-06-23] MEDS: Budesonide/Formoterol 160/4.5 1 PUFF INH IH SCH ×2 (08:01→20:45)
[2018-06-23] MEDS: Cholecalciferol (D-3) 1,000 UNIT TABLET PO SCH (08:03)
[2018-06-23] MEDS: Aspirin 81 MG TAB.CHEW PO SCH (08:03)
[2018-06-23] MEDS: *HR* Rivaroxaban 10 MG TABLET PO SCH (08:03)
[2018-06-23] MEDS: Diltiazem CD (24hr) 180 MG CAPSULE PO SCH (08:04)
[2018-06-23] MEDS: Gabapentin 400 MG CAPSULE PO SCH (08:04)
[2018-06-23] MEDS: Tobramycin for INHALATION 300 MG/5 ML AMPUL IH SCH ×2 (08:04→22:15)
[2018-06-23] MEDS ORDERED: 0.9 % Sodium Chloride 250 ML ONE (09:24)
[2018-06-23] MEDS: levoFLOXacin 500 MG TABLET PO SCH (10:57)
--- NOTE | 2018-06-23 11:04 | Internal Med Progress Note ---
Hospitalist Progress Note - Encounter Date of Encounter: 06/23/18 Time of Encounter: 08:45 - Subjective Interval History: Continues to remain off BiPAP between meals for about 3 hours. Pt also states that his breathing feels much better today although his HR fluctuates greatly with minimal exertion. No fever/chills overnight. Patient continues to require Cardizem drip with the rate between 5-7.5mg/hr - Exam Vitals: Temp Pulse Resp BP Pulse Ox 98 F 85 16 138/64 98 06/23/18 07:40 06/23/18 07:40 06/23/18 08:07 06/23/18 08:07 06/23/18 08:07 Exam: General: Alert and oriented, mild respiratory distress. Cardiovascular:Normal S1 & S2, No JVD. Pulse irregular but rate normalized Lungs: Slightly improved aeration, diminished lung sounds with end expiratory wh eezes bilaterally Abdomen:Soft, non-tender, no rigidity. Neurological:Normal cognition and motor skills. Non-focal - Assessment and Plan (1) Acute respiratory failure with hypercapnia Current Visit: Yes Status: Acute Assessment and Plan: Secondary to COPD exacerbation No evidence of pneumonia, respiratory viral panel negative. Blood gas normalized after prolonged BiPAP therapy, continue to use BiPaP PRN will increase the frequency of IV solumedrol today Continue bronchodilators and Levaquin D4 (2) Atrial fibrillation with RVR Current Visit: Yes Status: Acute Assessment and Plan: better controlled with improvement in his respiratory status continues to require diltiazem drip with low rate will try to avoid bb as much as possible with severe bronchospasm Continue PO Cardizem 360 mg QD, titrate off gtt if possible Continue Xarelto for AC (3) Acute exacerbation of chronic obstructive airways disease Current Visit: Yes Status: Acute Assessment and Plan: As above (4) Elevated troponin I level Current Visit: No Status: Acute Assessment and Plan: Likely demand ischemia in the setting of acute resting failure and A. fib with RVR. Troponin downtrended to 0.07. Echocardiogram did reveal EF 45-50% with mild global LV systolic dysfunction and moderate LV diastolic dysfunction (no comparison available) No prior Echo available on file, may be to repeat limited one prior to d/c once HR improves and cardizem gtt titrated off Resume home dose of aspirin and statin. (5) Hypertension Current Visit: No Status: Chronic Assessment and Plan: Controlled on home meds (6) DVT prophylaxis Current Visit: No Status: Acute Assessment and Plan: On Xarelto - Time Spent with Patient Total time spent is greater than 50% in coordination of care (as documented) at patient's floor/unit and/or counseling patient: Plan of Care Discussed with: patient Internal Medicine: Result - Labs CBC & Chem 7: 06/23/18 05:25 06/23/18 05:25 Labs: Short CBC 06/23/18 Range/Units 05:25 WBC 11.7 H (4.3-11.1) K/mcL Hgb 9.5 L (12.9-16.9) g/dL Hct 32.8 L (37.5-50.1) % Plt Count 248 (140-400) K/mcL Neutrophils # 11.0 H (1.6-8.9) K/mcL BMP 06/23/18 05:25 Sodium 140 Potassium 4.9 Chloride 92 L Carbon Dioxide > 45 H* BUN 44 H Creatinine 0.71 Glucose 249 H Calcium 9.6 - ABG Interpretation ABG results: ABG ABG pH 7.27 pH Units (7.32-7.45) L 06/20/18 18:27 ABG pCO2 106 mmHg (35-45) H* 06/20/18 18:27 ABG pO2 128 mmHg (85-104) H 06/20/18 18:27 ABG O2 Saturation 98 % (95-98) 06/20/18 18:27 - Impressions Impressions Chest CT 06/20/18 08:03 IMPRESSION: 1. Evaluation of the lungs is limited by motion artifact. 2. A subpleural nodular density in the left lower lobe measures up to 1.6 x 1.3 cm, and could represent scarring, atelectasis, or a neoplasm. Short-term follow-up CT of the chest with intravenous contrast is recommended once the patient can appropriately breath hold. 3. Moderate emphysematous changes. 4. Coronary atherosclerosis. D/ / 06/20/2018 15:34:47 Roberto Rodriguez MD / bridgett Interpreting Provider: oRberto Rodriguez MD Consult Discharge Plan - Plan [facility]errals: [facility] [Primary Care Provider] - (5) Hypertension Qualifiers: Hypertension type: essential hypertension Qualified Code(s): I10 - Essential (primary) hypertension
[2018-06-23 13:32] LABS: ABG Base Excess 15 mEq/L (-2 to 3); ABG HCO3 45 mEq/L (21-27); ABG Oxygen Saturation 94 % (95-98); ABG PCO2 95 mmHg (35-45); ABG PH 7.28 pH Units (7.32-7.45); ABG PO2 84 mmHg (85-104); ABG TCO2 48 mEq/L (20-26)
[2018-06-23] MEDS ORDERED: D5% in Water 1,000 ML IVC PRN (15:19)
[2018-06-23] MEDS ORDERED: Dextrose 4 GM Chewable Tablets PO PRN ×2 (15:19)
[2018-06-23] MEDS ORDERED: Dextrose Gel 15 GM/37.5 ML TUBE PO PRN ×2 (15:19)
[2018-06-23] MEDS ORDERED: *HR* Dextrose 50 % in Water (Syg) 50 ML SYRINGE IVP PRN (15:19)
[2018-06-23 16:05] LABS: ABG Base Excess 18 mEq/L (-2 to 3); ABG HCO3 48 mEq/L (21-27); ABG Oxygen Saturation 76 % (95-98); ABG PCO2 95 mmHg (35-45); ABG PH 7.31 pH Units (7.32-7.45); ABG PO2 48 mmHg (85-104); ABG TCO2 > 50 mEq/L (20-26)
--- NOTE | 2018-06-23 16:13 | Palliative - Consult Note ---
Date of Encounter: 06/23/18 Time of Encounter: 15:30 - Assessment and Plan (1) Goals of care, counseling/discussion Current Visit: Yes Status: Acute Assessment and plan: Attempted to have goals of care discussion with patient. Patient reports to wait for Elisha. Called Elisha . Elisha reports will not be able to attend goals of care meeting until , as weather predicted to be bad tomorrow. Requests meeting 11 am morning. (2) Acute exacerbation of chronic obstructive airways disease Current Visit: Yes Status: Acute Assessment and plan: CO2 95 at this time. BiPAP in place. Respiratory therapy drawing blood gas on departure from room. Management per Primary team. (3) Weakness Current Visit: No Status: Acute (4) Dyspnea Current Visit: No Status: Acute Assessment and plan: Patient reports dyspnea remains present. Reports BiPAP helping. Continue BiPAP and Oxygen therapy. Qualifiers: Dyspnea type: unspecified Qualified Code(s): R06.00 - Dyspnea, unspecified (5) Atrial fibrillation with RVR Current Visit: Yes Status: Acute Assessment and plan: Cardizem drip infusing. (6) Acute respiratory failure with hypercapnia Current Visit: Yes Status: Acute Palliative-CN HPI - Data of Consult Patient: known to practice within the last 3 years Consult date: 06/23/18 Requesting Physician: Mich Flores MD [facility] Care Provider[facility] - Consult Narrative Palliative Care/Comfort Measures: Palliative care Reason for consult: Acute on Chronic Respiratory Failure 2nd to COPD; recurrent admissions History of present illness: Mr. Campbell is a 72 year old male arrived to [facility] as a transfer from [facility] on 06/20/18. Patient went to [facility] on 06/18/18 for recurrence of AMS r/t Acute on chronic respiratory failure with hypercapnia; patient found to have elevated troponins, Afib with RVR. Patient has CODE STATUS established as DNRCCA/DNI. Patient is known to Palliative care team from last admission approximately 1 month ago with similar complications. Since arrival, patient has been on and off BiPAP with reported improvement in dyspnea; however, patient admits breathing is still not at his baseline. Palliative care team consulted for recurrent admissions and consideration of hospice discussion. Patient lying in bed with eyes open, BiPAP in place upon arrival for assessment. Patient is alert and oriented. Denies pain, nausea and vomiting. Patient reports anxiety and dyspnea remain present. No family present at bedside. CC: Mich Flores MD - Time Spent with Patient Time: Total time spent is greater than 50% in coordination of care (as documented) at patient's floor/unit and/or counseling patient: Time with patient: 30 minutes (5 minute chart review. 20 minute visit with patient. 5 minute coordination of family meeting with Elisha.) Past Med Surg Social Fam HX - Past Medical History Medical history: COPD, GERD, hyperlipidemia, hypertension, other Additional medical history: Tardive dyskinesia Diverticulitis. Tremor Arthralgia Knee. Cervical Myelopathy Pneumonia. Chronic pain syndrome Degeration of Lumbar/sacral. constipation Hyperkalemia. cognitive disorder Organic brain disorder. Anemia Hallucinations Dyspepsia. Pulmomary [place] lesion. Neoplasm f the Trachea. PE Psychiatric history: anxiety - Past Surgical History Surgical History: other Additional surgical history: foot surgery and ear surgery - Social History Smoking Status: Former smoker Smokeless Tobacco Status: No Alcohol use: none Drug use: none Medications and Allergies Acetaminophen [Tylenol] 650 mg PO Q8H PRN 09/03/17 [History] Aspirin 81 mg PO DAILY 09/03/17 [History] Budesonide/Formoterol 160/4.5 [Symbicort 160/4.5] 2 puff IH BID 09/03/17 [History] Docusate Sodium [Dok] 100 mg PO BID 09/03/17 [History] Gabapentin [Neurontin] 400 mg PO DAILY 09/03/17 [History] Losartan [Cozaar] 25 mg PO DAILY 09/03/17 [History] Methocarbamol [Robaxin] 500 mg PO HS 09/03/17 [History] Quetiapine Fumarate [Seroquel] 400 mg PO BID 09/03/17 [History] Simvastatin [Zocor] 20 mg PO DAILY 09/03/17 [History] dilTIAZem HCl [Diltiazem 24Hr ER] 240 mg PO DAILY 09/03/17 [History] Paroxetine HCl [Paxil] 40 mg PO QAM 10/14/17 [History] Sucralfate [Carafate] 1 gm PO ACHS 10/14/17 [History] predniSONE [PredniSONE] 4 mg PO DAILY 10/14/17 [History] Roflumilast [Daliresp] 500 mcg PO DAILY 05/02/18 [History] Buspirone HCl [Buspar] 10 mg PO BID 05/03/18 [History] Calcium Carbonate/Vitamin D3 [Calcium 500 + Vit D Caplet] 1 tab PO BID 05/03/18 [History] Denosumab [Prolia (For Outpatient Infusion)] 60 mg SQ Q6M 05/03/18 [History] Levalbuterol HCl [Xopenex Neb] 1.25 mg IH Q4H PRN 05/03/18 [History] Melatonin 3 mg PO HS 05/03/18 [History] Multivit-Min/FA/Lycopen/Lutein [A Thru Z Select Multivit Tab] 1 tab PO DAILY 1 [History] Pantoprazole Sodium 40 mg PO BID 05/03/18 [History] Tiotropium [Spiriva] 1 puff IH DAILY 05/03/18 [History] Rivaroxaban [Xarelto] 1 tab PO DAILY 06/20/18 [History] Cholecalciferol (D-3) [Vitamin D] 3,000 unit PO DAILY 06/21/18 [History] Levalbuterol [Xopenex INH] 2 puff IH QID PRN 06/21/18 [History] Tobramycin/Nebulizer [Tobramycin Julio 300 mg/5 ml] 300 mg IH BID 06/21/18 [History] Allergy/AdvReac Type Severity Reaction Status Date / Time No Known Allergies Allergy Verified 06/18/18 18:10 - Constitutional Constitutional ROS PAL: no decreased appetite, no anorexia, no frequent falls, no lethargy, no malaise - Respiratory Respiratory: cough, dyspnea - Neurological Neurological ROS: behavioral changes, confusion, lack of coordination, memory loss Palliative Care-Exam - Constitutional Vitals: Temp Pulse Resp BP Pulse Ox 98 F 85 20 138/64 95 06/23/18 07:40 06/23/18 07:40 06/23/18 11:25 06/23/18 08:07 06/23/18 11:25 General appearance: Present: cooperative, no acute distress, obese - Head Head Exam: Present: atraumatic, normal inspection - Eye Eye exam: Present: EOMI, normal appearance, PERRL. Absent: periorbital swell ing, periorbital tenderness - ENT ENT exam: Present: mucous membranes dry, normal external ear exam - Neck Neck exam: Present: full ROM, normal inspection - Respiratory Respiratory exam: Present: accessory muscle use, rhonchi, wheezes, tachypnea. Absent: respiratory distress - Cardiovascular Cardiovascular exam: Present: irregular rhythm - Expanded Cardiovascular Exam Peripheral pulses: 1+: Posterior Tibialis (L), Posterior Tibialis (R), Dorsalis Pedis (L) PM, Dorsalis Pedis (R) PM, 2+: Radial (L), Radial (R) - GI/Abdominal Exam GI/Abdominal exam: Present: diminished bowel sounds, soft. Absent: tenderness - Rectal Rectal Exam: Present: deferred - Extremities Exam Extremities exam: Present: full ROM, normal inspection - Back Exam Back exam: Present: normal inspection - Neurological Exam Neurological exam: Present: alert, oriented X3, strengths equal and symetr throughout. Absent: altered - Expanded Neurological Exam Patient oriented to: Present: person, place, time Coma Scale Eye Opening: To Voice Coma Scale Motor Response: Obeys Commands Coma Scale Verbal Response: Oriented Coma Scale Total: 14 - Psychiatric Psychiatric exam: Present: anxious - Skin Skin exam: Present: dry, intact, warm Internal Medicine - CN: Reslt - Labs CBC & Chem 7: 06/23/18 05:25 06/23/18 05:25 Labs: Short CBC 06/23/18 Range/Units 05:25 WBC 11.7 H (4.3-11.1) K/mcL Hgb 9.5 L (12.9-16.9) g/dL Hct 32.8 L (37.5-50.1) % Plt Count 248 (140-400) K/mcL Neutrophils # 11.0 H (1.6-8.9) K/mcL BMP 06/23/18 05:25 Sodium 140 Potassium 4.9 Chloride 92 L Carbon Dioxide > 45 H* BUN 44 H Creatinine 0.71 Glucose 249 H Calcium 9.6 - ABG Interpretation ABG results: ABG ABG pH 7.31 pH Units (7.32-7.45) L 06/23/18 16:02 ABG pCO2 95 mmHg (35-45) H* 06/23/18 16:02 ABG pO2 48 mmHg (85-104) L* 06/23/18 16:02 ABG O2 Saturation 76 % (95-98) L 06/23/18 16:02 - Impressions Impressions Chest CT 06/20/18 08:03 IMPRESSION: 1. Evaluation of the lungs is limited by motion artifact. 2. A subpleural nodular density in the left lower lobe measures up to 1.6 x 1.3 cm, and could represent scarring, atelectasis, or a neoplasm. Short-term follow-up CT of the chest with intravenous contrast is recommended once the patient can appropriately breath hold. 3. Moderate emphysematous changes. 4. Coronary atherosclerosis. D/ / 06/20/2018 15:34:47 Roberto Rodriguez MD / bridgett Interpreting Provider: Roberto Rodriguez MD Consult Discharge Plan - Plan Referrals: [facility] [Primary Care Provider] - Palliative Quality Palliative Quality: Screen for Code Status: Yes, Screen for Goals of Care: Yes, Screen for Pain: Yes, If Pain Regimen Started, Initiate Bowel Regimen: NA, Screen for Nausea/Vomitting: Yes Code Status: 06/20/18 01:10 CODE [Resuscitation Status: Active] [RES] Routine Comment: Resuscitation Status: [id number] Palliative Scale - Palliative Performance Scale How ambulatory is this patient?: Mainly sit / lie What is patient's level of activity and evidence of disease?: Unable normal job/work, Significant disease How much self-care assistance does patient require?: Considerable assistance required How much oral intake does the patient have?: Normal or reduced What is this patient's level of consciousness?: Full or confusion Palliative Performance Score: 70 %
[2018-06-23] MEDS: Insulin LISPRO 300 UNITS/3 ML VIAL SQ SCH ×2 (17:03→20:03)
[2018-06-23] MEDS: Melatonin 3 MG TABLET PO SCH (20:02)
--- NOTE | 2018-06-24 00:38 | Electrocardiograph Report ---
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
[2018-06-24] MEDS ORDERED: 0.9 % Sodium Chloride 250 ML ONE (03:20)
[2018-06-24] MEDS: Levalbuterol Neb 1.25 MG/3 ML IH SCH ×6 (03:38→23:38)
[2018-06-24] MEDS: MethylPREDNISolone 40 MG/ML VIAL IVP SCH ×4 (05:21→23:53)
[2018-06-24 06:54] LABS: Basophils % 0.1 %; Hematocrit 32.3 % (37.5-50.1); Hemoglobin 9.3 g/dL (12.9-16.9); Immature Granulocytes % 0.8 % (0-4); Lymphocytes # 0.2 K/mcL (0.6-4.6); Lymphocytes % 1.5 %; Mean Corpuscular HGB Conc 28.8 g/dL (31.6-35.5); Mean Corpuscular Hemoglobin 28.9 pg (28.0-33.3); Mean Corpuscular Volume 100.3 fL (83.0-100.0); Mean Platelet Volume 10.6 fL (9.4-12.4); Monocytes # 0.4 K/mcL (0.0-1.3); Monocytes % 2.9 %; Neutrophils # 13.5 K/mcL (1.6-8.9); Platelet Count 241 K/mcL (140-400); Red Blood Count 3.22 M/mcL (4.19-5.50); Red Cell Distribution Width 13.9 % (11.5-14.5); Segmented Neutrophils % 94.7 %
[2018-06-24 07:18] LABS: Platelet Estimate Normal (Normal)
[2018-06-24 07:19] LABS: BUN/Creatinine Ratio 59 (6-26); Blood Urea Nitrogen 48 mg/dL (8-23); Calcium 9.1 mg/dL (8.6-10.3); Carbon Dioxide 45 mEq/L (23-29); Chloride 93 mEq/L (98-107); Glucose 270 mg/dL (70-105); Osmolality,Calculated 312 (280-300); Potassium 4.7 mEq/L (3.5-5.1); Sodium 140 mEq/L (136-145); eGFR For Non-African Americans > 60 (> 60)
[2018-06-24] MEDS: Cholecalciferol (D-3) 1,000 UNIT TABLET PO SCH (07:47)
[2018-06-24] MEDS: Aspirin 81 MG TAB.CHEW PO SCH (07:47)
[2018-06-24] MEDS: *HR* Rivaroxaban 10 MG TABLET PO SCH (07:48)
[2018-06-24] MEDS: levoFLOXacin 500 MG TABLET PO SCH (07:48)
[2018-06-24] MEDS: Gabapentin 400 MG CAPSULE PO SCH (07:48)
[2018-06-24] MEDS: Insulin LISPRO 300 UNITS/3 ML VIAL SQ SCH ×4 (08:11→20:52)
--- NOTE | 2018-06-24 10:18 | Palliative Progress Note ---
Date of Encounter: 06/24/18 Time of Encounter: 09:30 - Assessment and plan (1) Goals of care, counseling/discussion Current Visit: Yes Status: Acute Assessment and plan: Family meeting set for 11 am tomorrow. (2) Acute exacerbation of chronic obstructive airways disease Current Visit: Yes Status: Acute Assessment and plan: ABG appears to be worsening over course of day yesterday. Continue BiPAP and Oxygen per primary team. (3) Weakness Current Visit: No Status: Acute (4) Dyspnea Current Visit: No Status: Acute Assessment and plan: Reports dyspnea improved with BiPAP. Qualifiers: Dyspnea type: unspecified Qualified Code(s): R06.00 - Dyspnea, unspecified (5) Atrial fibrillation with RVR Current Visit: Yes Status: Acute Assessment and plan: Cardizem Drip infusing. (6) Acute respiratory failure with hypercapnia Current Visit: Yes Status: Acute (7) Anxiety Current Visit: Yes Status: Acute Assessment and plan: Patient reporting anxiety with BiPAP mask on. Ordered Hydroxyzine PRN for assistance with control of Anxiety. - Time Spent With Patient Total time spent is greater than 50% in coordination of care (as documented) at patient's floor/unit and/or counseling patient: - Subjective Interval history: Patient sitting up in bed with BiPAP in place, upon arrival for assessment. No family present at bedside. Patient alert and oriented times 3. Patient denies pain, nausea and vomiting. Patient reported some dyspnea, which has been helped with bipap use, and some anxiety, related to the mask. Patient updated on time of planned family meeting tomorrow at 11 am; agreeable. - Constitutional Vitals: Abnormal lab results WBC 14.3 K/mcL (4.3-11.1) H 06/24/18 06:02 RBC 3.22 M/mcL (4.19-5.50) L 06/24/18 06:02 Hgb 9.3 g/dL (12.9-16.9) L 06/24/18 06:02 Hct 32.3 % (37.5-50.1) L 06/24/18 06:02 MCV 100.3 fL (83.0-100.0) H 06/24/18 06:02 MCHC 28.8 g/dL (31.6-35.5) L 06/24/18 06:02 Neutrophils # 13.5 K/mcL (1.6-8.9) H 06/24/18 06:02 Lymphocytes # 0.2 K/mcL (0.6-4.6) L 06/24/18 06:02 Hypochromasia Present (Not Present) A 06/21/18 07:06 ABG pH 7.31 pH Units (7.32-7.45) L 06/23/18 16:02 ABG pCO2 95 mmHg (35-45) H* 06/23/18 16:02 ABG pO2 48 mmHg (85-104) L* 06/23/18 16:02 ABG HCO3 48 mEq/L (21-27) H 06/23/18 16:02 ABG Total CO2 > 50 mEq/L (20-26) H 06/23/18 16:02 ABG O2 Saturation 76 % (95-98) L 06/23/18 16:02 ABG Base Excess 18 mEq/L (-2 to 3) H 06/23/18 16:02 VBG pCO2 71 mmHg (41-51) H* 06/21/18 07:28 VBG pO2 142 mmHg (25-50) H 06/21/18 07:28 VBG HCO3 43 mEq/L (21-27) H 06/21/18 07:28 Chloride 93 mEq/L (98-107) L 06/24/18 06:02 Carbon Dioxide 45 mEq/L (23-29) H* 06/24/18 06:02 BUN 48 mg/dL (8-23) H 06/24/18 06:02 BUN/Creatinine Ratio 59 (6-26) H 06/24/18 06:02 Glucose 270 mg/dL (70-105) H 06/24/18 06:02 POC Glucose 288 mg/dL (70-99) H 06/23/18 17:11 Calculated Osmolality 312 (280-300) H 06/24/18 06:02 Total Bilirubin 0.2 mg/dL (0.3-1.0) L 06/20/18 03:15 Troponin I 0.07 ng/mL (< 0.04) H* 06/20/18 03:15 Serum Total Protein 6.2 g/dL (6.4-8.9) L 06/20/18 03:15 TSH 0.256 mcIU/mL (0.340-5.600) L 06/20/18 03:15 General appearance: Present: cooperative, mild distress, obese - Head Head exam: Present: atraumatic, normal inspection - Eye Eye exam: Present: EOMI, normal appearance. Absent: periorbital swelling, periorbital tenderness Pupils: Present: normal accommodation - ENT ENT exam: Present: mucous membranes dry, normal external ear exam - Neck Neck exam: Present: full ROM, normal inspection - Respiratory Respiratory exam: Present: accessory muscle use, decreased breath sounds, rhonchi, wheezes, tachypnea. Absent: CTAB - Cardiovascular Cardiovascular exam: Present: irregular rhythm - GI/Abdominal GI/Abdominal exam: Present: diminished bowel sounds, distended, firm. Absent: tenderness - Rectal Rectal exam: Present: deferred - Extremities Exam Extremities exam: Present: pedal edema. Absent: calf tenderness - Back Exam Back exam: Present: full ROM, normal inspection - Neurological Exam Neurological exam: Present: alert, oriented X3, strengths equal and symetr throughout. Absent: altered - Psychiatric Psychiatric exam: Present: anxious, flat affect - Skin Skin exam: Present: intact, normal color, warm Palliative Quality Palliative Quality: Screen for Code Status: Yes, Screen for Goals of Care: Yes, Screen for Pain: Yes, If Pain Regimen Started, Initiate Bowel Regimen: NA, Screen for Nausea/Vomitting: Yes Code Status: 06/20/18 01:10 CODE [Resuscitation Status: Active] [RES] Routine Comment: Resuscitation Status: [id number] - Labs CBC & Chem 7: 06/24/18 06:02 06/24/18 06:02 Labs: Laboratory Results - last 24 hr 06/23/18 06/23/18 06/23/18 13:29 16:02 17:11 WBC RBC Hgb Hct MCV MCH MCHC RDW Plt Count MPV Immature Gran % Seg Neutrophils % Lymphocytes % Monocytes % Eosinophils % Basophils % Neutrophils # Lymphocytes # Monocytes # Eosinophils # Basophils # Platelet Estimate Sample Site R Radial R Radial ABG pH 7.28 L 7.31 L ABG pCO2 95 H* 95 H* ABG pO2 84 L 48 L* ABG HCO3 45 H 48 H ABG Total CO2 48 H > 50 H ABG O2 Saturation 94 L 76 L ABG Base Excess 15 H 18 H Sang Test Negative Positive O2 Delivery Device BiPAP BiPAP Inspired O2 40.0 40.0 Sodium Potassium Chloride Carbon Dioxide BUN Creatinine Est GFR ( Amer) Est GFR (Non-Af Amer) BUN/Creatinine Ratio Glucose POC Glucose 288 H Calculated Osmolality Calcium 06/24/18 06/24/18 06:02 06:02 WBC 14.3 H RBC 3.22 L Hgb 9.3 L Hct 32.3 L MCV 100.3 H MCH 28.9 MCHC 28.8 L RDW 13.9 Plt Count 241 MPV 10.6 Immature Gran % 0.8 Seg Neutrophils % 94.7 Lymphocytes % 1.5 Monocytes % 2.9 Eosinophils % 0.0 Basophils % 0.1 Neutrophils # 13.5 H Lymphocytes # 0.2 L Monocytes # 0.4 Eosinophils # 0.0 Basophils # 0.0 Platelet Estimate Normal Sample Site ABG pH ABG pCO2 ABG pO2 ABG HCO3 ABG Total CO2 ABG O2 Saturation ABG Base Excess Sang Test O2 Delivery Device Inspired O2 Sodium 140 Potassium 4.7 Chloride 93 L Carbon Dioxide 45 H* BUN 48 H Creatinine 0.82 Est GFR ( Amer) > 60 Est GFR (Non-Af Amer) > 60 BUN/Creatinine Ratio 59 H Glucose 270 H POC Glucose Calculated Osmolality 312 H Calcium 9.1 - ABG Interpretation ABG results: ABG ABG pH 7.31 pH Units (7.32-7.45) L 06/23/18 16:02 ABG pCO2 95 mmHg (35-45) H* 06/23/18 16:02 ABG pO2 48 mmHg (85-104) L* 06/23/18 16:02 ABG O2 Saturation 76 % (95-98) L 06/23/18 16:02 Palliative Scale - Palliative Performance Scale How ambulatory is this patient?: Mainly sit / lie What is patient's level of activity and evidence of disease?: Unable normal job/work, Significant disease How much self-care assistance does patient require?: Considerable assistance required How much oral intake does the patient have?: Normal or reduced What is this patient's level of consciousness?: Full or confusion Palliative Performance Score: 70 % Consult Discharge Plan - Plan Referrals: [facility] [Primary Care Provider] -
[2018-06-24] MEDS: Tobramycin for INHALATION 300 MG/5 ML AMPUL IH SCH (11:25)
[2018-06-24] MEDS: Budesonide/Formoterol 160/4.5 1 PUFF INH IH SCH ×2 (11:34→19:55)
[2018-06-24] MEDS: Diltiazem CD (24hr) 180 MG CAPSULE PO SCH (11:42)
[2018-06-24] MEDS ORDERED: Furosemide 20 MG/2 ML VIAL IVP ONE (12:43)
--- NOTE | 2018-06-24 17:45 | Internal Med Progress Note ---
Hospitalist Progress Note - Encounter Date of Encounter: 06/24/18 Time of Encounter: 17:42 - Subjective Interval History: Pt is on continuous BiPAP and unable to be weaned off at this time. He has conversational dyspnea. He denies chest pain, fever, chills, N/V or abdominal pain. - Exam Vitals: Temp Pulse Resp BP Pulse Ox 97.8 F 84 33 117/75 95 06/24/18 15:40 06/24/18 15:40 06/24/18 15:48 06/24/18 15:40 06/24/18 15:48 Exam: General: Alert and oriented, no acute distress, obese. Head exam: Present: atraumatic, normocephalic Eye exam: Present: PERRL, conjuntiva pink, sclera anicteric Pupils: Present: PERRLA Cardiovascular:Normal S1 & S2, No JVD. Pulse irregular but rate normalized Lungs: B/L crackles, diminished lung sounds with occasional expiratory wheezes bilaterally Abdomen:Soft, non-tender, no rigidity. Extremities exam: Present: warm, radial pulses palpable and symmetrical. Absent: calf tenderness, cyanotic, pedal edema Neurological exam: Normal cognition and motor skills. Non-focal. Psychiatric exam: Present: normal affect, normal mood Skin exam: Present: dry, intact - Assessment and Plan (1) Acute respiratory failure with hypercapnia Current Visit: Yes Status: Acute Assessment and Plan: Secondary to COPD exacerbation No evidence of pneumonia, respiratory viral panel negative. Blood gas normalized after prolonged BiPAP therapy and continues to use BiPaP. will plan to switch IV solumedrol to prednisone PO Continue bronchodilators and Levaquin D4. Will give trial of Lasix 20 mg IV x one now due to B/L LE pitting edema, if tolerates will aly lasix and monitor renal function. Pt would likely benefit from stress test when respiratory status more stable. (2) Acute exacerbation of chronic obstructive airways disease Current Visit: Yes Status: Acute Assessment and Plan: As above (3) Atrial fibrillation with RVR Current Visit: Yes Status: Acute Assessment and Plan: better controlled with improvement in his respiratory status Continues to require diltiazem drip with low rate Pt was started on BB on his last admission but was not continued. Will wean off cardizem gtt. Cardioselective BBs are safe in patients with COPD who have an indication for their use therefore will resume BB and PO cardizem. Continue PO Cardizem 360 mg QD, titrate off gtt if possible Continue Xarelto for AC (4) Hypertension Current Visit: No Status: Chronic Assessment and Plan: Controlled on home meds (5) Elevated troponin I level Current Visit: No Status: Acute Assessment and Plan: Likely demand ischemia in the setting of acute resting failure and A. fib with RVR. Troponin down trended to 0.07. However, pt may benefit from stress test once resp status more stable. Echocardiogram did reveal EF 45-50% with mild global LV systolic dysfunction and moderate LV diastolic dysfunction (no comparison available) No prior Echo available on file. Will try wean off cardizem gtt and start on Metoprolol 12.5 mg BID as was prescribed on his previous discharge. For reasons that are not completely clear, BB was not continued at the [place] after his discharge. Resume home dose of aspirin and statin. Checking lipid panel in am. DVT Prophylaxis: On Xarelto - Summary of Assessment and Plan Summary of Assessment and Plan: History of present illness: Dr. Moncada Mr. Campbell is a 72 year old male past medical history of COPD, hypertension, atrial fibrillation presented to [place] ED from his nursing care facility due to lethargy and difficulty breathing. The to have altered mental status due to elevated carbon dioxide levels. She was also found to have A. fib with RVR. Patient states he had confusion post presentation to [facility]. However now he denies any confusion. Patient is laying in bed on BiPAP. Currently patient states he is not short of breath but BiPAP is helping. Patient still comp laining of a productive cough. Has vizcaino mucus. Patient currently denies any chest pain states he did have some earlier. Patient denies current palpitations. Patient also denies fever, chills, abdominal pain, nausea, vomiting, diarrhea, weakness, numbness or tingling, dizziness, rash. - Time Spent with Patient Total time spent is greater than 50% in coordination of care (as documented) at patient's floor/unit and/or counseling patient: less than 15 minutes Plan of Care Discussed with: patient Internal Medicine: Result - Labs CBC & Chem 7: 06/24/18 06:02 06/24/18 06:02 Labs: Short CBC 06/24/18 Range/Units 06:02 WBC 14.3 H (4.3-11.1) K/mcL Hgb 9.3 L (12.9-16.9) g/dL Hct 32.3 L (37.5-50.1) % Plt Count 241 (140-400) K/mcL Neutrophils # 13.5 H (1.6-8.9) K/mcL BMP 06/24/18 06:02 Sodium 140 Potassium 4.7 Chloride 93 L Carbon Dioxide 45 H* BUN 48 H Creatinine 0.82 Glucose 270 H Calcium 9.1 - ABG Interpretation ABG results: ABG ABG pH 7.31 pH Units (7.32-7.45) L 06/23/18 16:02 ABG pCO2 95 mmHg (35-45) H* 06/23/18 16:02 ABG pO2 48 mmHg (85-104) L* 06/23/18 16:02 ABG O2 Saturation 76 % (95-98) L 06/23/18 16:02 - Impressions Impressions Chest X-Ray 06/24/18 11:26 IMPRESSION: Small bilateral pleural effusions with bibasilar atelectasis. D/ / Josh Spann / Josh Spann Interpreting Provider: Josh Spann Consult Discharge Plan - Plan [facility]errals: [facility] [Primary Care Provider] - (4) Hypertension Qualifiers: Hypertension type: essential hypertension Qualified Code(s): I10 - Essential (primary) hypertension
[2018-06-24] MEDS: Furosemide 20 MG/2 ML VIAL IVP SCH (20:51)
[2018-06-24] MEDS: Melatonin 3 MG TABLET PO SCH (20:51)
[2018-06-25] MEDS: Levalbuterol Neb 1.25 MG/3 ML IH SCH ×5 (03:50→19:50)
[2018-06-25 05:20] LABS: Basophils % 0.1 %; Hematocrit 36.2 % (37.5-50.1); Hemoglobin 10.9 g/dL (12.9-16.9); Immature Granulocytes % 0.9 % (0-4); Lymphocytes # 0.4 K/mcL (0.6-4.6); Lymphocytes % 2.2 %; Mean Corpuscular HGB Conc 30.1 g/dL (31.6-35.5); Mean Corpuscular Hemoglobin 29.1 pg (28.0-33.3); Mean Corpuscular Volume 96.5 fL (83.0-100.0); Mean Platelet Volume 11.2 fL (9.4-12.4); Monocytes # 0.4 K/mcL (0.0-1.3); Monocytes % 2.6 %; Neutrophils # 15.9 K/mcL (1.6-8.9); Platelet Count 232 K/mcL (140-400); Red Blood Count 3.75 M/mcL (4.19-5.50); Red Cell Distribution Width 14.1 % (11.5-14.5); Segmented Neutrophils % 94.2 %
[2018-06-25] MEDS: MethylPREDNISolone 40 MG/ML VIAL IVP SCH (06:01)
[2018-06-25] MEDS: Budesonide/Formoterol 160/4.5 1 PUFF INH IH SCH ×2 (07:25→19:50)
[2018-06-25 08:19] LABS: BUN/Creatinine Ratio 74 (6-26); Blood Urea Nitrogen 52 mg/dL (8-23); Calcium 8.7 mg/dL (8.6-10.3); Carbon Dioxide > 45 mEq/L (23-29); Chloride 93 mEq/L (98-107); Chol/HDL Ratio 2.2 (0-4.9); Cholesterol 169 mg/dL (< 200); Glucose 231 mg/dL (70-105); HDL Cholesterol 78 mg/dL (40-59); LDL Cholesterol,Calculated 66 mg/dL (0-99); Osmolality,Calculated 315 (280-300); Potassium 4.6 mEq/L (3.5-5.1); Sodium 142 mEq/L (136-145); Triglycerides 127 mg/dL (< 150); eGFR For Non-African Americans > 60 (> 60)
[2018-06-25] MEDS: *HR* Rivaroxaban 10 MG TABLET PO SCH (08:33)
[2018-06-25] MEDS: levoFLOXacin 500 MG TABLET PO SCH (08:33)
[2018-06-25] MEDS: Gabapentin 400 MG CAPSULE PO SCH (08:34)
[2018-06-25] MEDS: Aspirin 81 MG TAB.CHEW PO SCH (08:35)
[2018-06-25] MEDS: Furosemide 20 MG/2 ML VIAL IVP SCH ×2 (08:35→18:13)
[2018-06-25] MEDS: Diltiazem CD (24hr) 180 MG CAPSULE PO SCH (08:35)
[2018-06-25] MEDS: Cholecalciferol (D-3) 1,000 UNIT TABLET PO SCH (08:35)
[2018-06-25] MEDS: Insulin LISPRO 300 UNITS/3 ML VIAL SQ SCH ×4 (08:39→21:07)
--- NOTE | 2018-06-25 10:17 | Palliative Progress Note ---
Date of Encounter: 06/25/18 Time of Encounter: 10:00 - Assessment and plan (1) Dyspnea Current Visit: No Status: Acute Assessment and plan: Continue oxygen/bipap/bronchodilators. Will start low dose Roxanol to assist with dyspnea if needed. Qualifiers: Dyspnea type: unspecified Qualified Code(s): R06.00 - Dyspnea, unspecified (2) Goals of care, counseling/discussion Current Visit: Yes Status: Acute Assessment and plan: Met with patient, his ex- Elisha (POSouleymane) and son Dylan. Discussed goals of care at length. Discussed that becoming more bipap dependent and CO2 levels still in 90's with bipap. With any exertion, heart is also affected. Patient states that he desires hospice care at this point, and knows not much else can be done for his disease. Family in agreement. I called sundar Sherman caregiver, and she stated that she would welcome him coming back with hospice care. All parties desire to utilize [facility] for his care. Dr. Melara arr ived during my visit, and updated on place. Likely discharge for tomorrow. Referral called to [facility], gave them POA phone number of [phone] for contact if they need to arrange meeting for enrollment process. 45 min spent in counseling and coordination of care. (3) COPD (chronic obstructive pulmonary disease) Current Visit: Yes Status: Acute (4) Acute respiratory failure with hypercapnia Current Visit: Yes Status: Acute - Time Spent With Patient Total time spent is greater than 50% in coordination of care (as documented) at patient's floor/unit and/or counseling patient: Greater than 35 minutes - Subjective Interval history: Patient awake and alert - requesting to go back on bipap, has been on nasal cannula since breakfast. Ex- JOSE CARLOS Tello, and patient son Shamar have arrived. Patient states not feeling well, and states "I'm coming to the end of the road with my lungs". - Constitutional Vitals: Abnormal lab results WBC 16.9 K/mcL (4.3-11.1) H 06/25/18 04:55 RBC 3.75 M/mcL (4.19-5.50) L 06/25/18 04:55 Hgb 10.9 g/dL (12.9-16.9) L D 06/25/18 04:55 Hct 36.2 % (37.5-50.1) L 06/25/18 04:55 MCHC 30.1 g/dL (31.6-35.5) L 06/25/18 04:55 Neutrophils # 15.9 K/mcL (1.6-8.9) H 06/25/18 04:55 Lymphocytes # 0.4 K/mcL (0.6-4.6) L 06/25/18 04:55 Hypochromasia Present (Not Present) A 06/21/18 07:06 ABG pH 7.31 pH Units (7.32-7.45) L 06/23/18 16:02 ABG pCO2 95 mmHg (35-45) H* 06/23/18 16:02 ABG pO2 48 mmHg (85-104) L* 06/23/18 16:02 ABG HCO3 48 mEq/L (21-27) H 06/23/18 16:02 ABG Total CO2 > 50 mEq/L (20-26) H 06/23/18 16:02 ABG O2 Saturation 76 % (95-98) L 06/23/18 16:02 ABG Base Excess 18 mEq/L (-2 to 3) H 06/23/18 16:02 VBG pCO2 71 mmHg (41-51) H* 06/21/18 07:28 VBG pO2 142 mmHg (25-50) H 06/21/18 07:28 VBG HCO3 43 mEq/L (21-27) H 06/21/18 07:28 Chloride 93 mEq/L (98-107) L 06/25/18 07:18 Carbon Dioxide > 45 mEq/L (23-29) H* 06/25/18 07:18 BUN 52 mg/dL (8-23) H 06/25/18 07:18 BUN/Creatinine Ratio 74 (6-26) H 06/25/18 07:18 Glucose 231 mg/dL (70-105) H 06/25/18 07:18 POC Glucose 114 mg/dL (70-99) H 06/24/18 16:26 Calculated Osmolality 315 (280-300) H 06/25/18 07:18 Total Bilirubin 0.2 mg/dL (0.3-1.0) L 06/20/18 03:15 Troponin I 0.07 ng/mL (< 0.04) H* 06/20/18 03:15 Serum Total Protein 6.2 g/dL (6.4-8.9) L 06/20/18 03:15 HDL Cholesterol 78 mg/dL (40-59) H 06/25/18 07:18 TSH 0.256 mcIU/mL (0.340-5.600) L 06/20/18 03:15 General appearance: Present: mild distress - Respiratory Additional comments: Breath sounds diminished throughout. Expiratory wheezes noted throughout all lung calle - Cardiovascular Cardiovascular exam: Present: irregular rhythm - GI/Abdominal GI/Abdominal exam: Present: normal bowel sounds, soft - Extremities Exam Extremities exam: Present: normal capillary refill, normal inspection - Neurological Exam Neurological exam: Present: alert, oriented X3, strengths equal and symetr throughout - Skin Skin exam: Present: dry, warm Palliative Quality Palliative Quality: Screen for Code Status: Yes, Screen for Goals of Care: Yes, Screen for Pain: Yes, If Pain Regimen Started, Initiate Bowel Regimen: NA, Screen for Nausea/Vomitting: Yes Code Status: 06/20/18 01:10 CODE [Resuscitation Status: Active] [RES] Routine Comment: Resuscitation Status: [id number] - Labs CBC & Chem 7: 06/25/18 04:55 06/25/18 07:18 Labs: Laboratory Results - last 24 hr 06/23/18 06/24/18 06/24/18 19:49 07:54 11:47 WBC RBC Hgb Hct MCV MCH MCHC RDW Plt Count MPV Immature Gran % Seg Neutrophils % Lymphocytes % Monocytes % Eosinophils % Basophils % Neutrophils # Lymphocytes # Monocytes # Eosinophils # Basophils # Sodium Potassium Chloride Carbon Dioxide BUN Creatinine Est GFR ( Amer) Est GFR (Non-Af Amer) BUN/Creatinine Ratio Glucose POC Glucose 149 H 225 H 324 H Calculated Osmolality Calcium Triglycerides Cholesterol LDL Cholesterol, Calc VLDL Cholesterol, Calc HDL Cholesterol Cholesterol/HDL Ratio Specimen Rejected 06/24/18 06/25/18 06/25/18 16:26 04:55 04:55 WBC 16.9 H RBC 3.75 L Hgb 10.9 L D Hct 36.2 L MCV 96.5 MCH 29.1 MCHC 30.1 L RDW 14.1 Plt Count 232 MPV 11.2 Immature Gran % 0.9 Seg Neutrophils % 94.2 Lymphocytes % 2.2 Monocytes % 2.6 Eosinophils % 0.0 Basophils % 0.1 Neutrophils # 15.9 H Lymphocytes # 0.4 L Monocytes # 0.4 Eosinophils # 0.0 Basophils # 0.0 Sodium Potassium Chloride Carbon Dioxide BUN Creatinine Est GFR ( Amer) Est GFR (Non-Af Amer) BUN/Creatinine Ratio Glucose POC Glucose 114 H Calculated Osmolality Calcium Triglycerides Cholesterol LDL Cholesterol, Calc VLDL Cholesterol, Calc HDL Cholesterol Cholesterol/HDL Ratio Specimen Rejected Hemolyzed 06/25/18 07:18 WBC RBC Hgb Hct MCV MCH MCHC RDW Plt Count MPV Immature Gran % Seg Neutrophils % Lymphocytes % Monocytes % Eosinophils % Basophils % Neutrophils # Lymphocytes # Monocytes # Eosinophils # Basophils # Sodium 142 Potassium 4.6 Chloride 93 L Carbon Dioxide > 45 H* BUN 52 H Creatinine 0.70 Est GFR ( Amer) > 60 Est GFR (Non-Af Amer) > 60 BUN/Creatinine Ratio 74 H Glucose 231 H POC Glucose Calculated Osmolality 315 H Calcium 8.7 Triglycerides 127 Cholesterol 169 LDL Cholesterol, Calc 66 VLDL Cholesterol, Calc 25 HDL Cholesterol 78 H Cholesterol/HDL Ratio 2.2 Specimen Rejected - Impressions Impressions Chest X-Ray 06/24/18 11:26 IMPRESSION: Small bilateral pleural effusions with bibasilar atelectasis. D/ / Jsoh Spann / Josh Spann Interpreting Provider: Josh Spann - ABG Interpretation ABG results: ABG ABG pH 7.31 pH Units (7.32-7.45) L 06/23/18 16:02 ABG pCO2 95 mmHg (35-45) H* 06/23/18 16:02 ABG pO2 48 mmHg (85-104) L* 06/23/18 16:02 ABG O2 Saturation 76 % (95-98) L 06/23/18 16:02 Palliative Scale - Palliative Performance Scale How ambulatory is this patient?: Mainly sit / lie What is patient's level of activity and evidence of disease?: Unable normal job/work, Significant disease How much self-care assistance does patient require?: Considerable assistance required How much oral intake does the patient have?: Normal or reduced What is this patient's level of consciousness?: Full or confusion Palliative Performance Score: 70 % Consult Discharge Plan - Plan [facility]errals: [facility] [Primary Care Provider] -
--- NOTE | 2018-06-25 12:51 | Discharge Summary ---
- NOTES TO OUTPATIENT PROVIDER Notes to Outpatient Provider: PCP in 5 to 7 days Orders not resulted at time of discharge: Pending orders 06/26/18 04:00 BMP [Basic Metabolic Panel] AM 0400 CBC [Complete Blood Count] [HEME] AM 0400 06/27/18 04:00 BMP [Basic Metabolic Panel] AM 0400 CBC [Complete Blood Count] [HEME] AM 0400 06/28/18 04:00 BMP [Basic Metabolic Panel] AM 0400 Date of Encounter: 06/25/18 Time of Encounter: 12:42 - Discharge Diagnosis (1) Acute respiratory failure with hypercapnia Priority: Primary Status: Acute Assessment and Plan: Secondary to COPD exacerbation No evidence of pneumonia, respiratory viral panel negative. Blood gas normalized after prolonged BiPAP therapy and continues to use BiPaP. Will plan to switch IV solumedrol to prednisone PO Continue bronchodilators and Levaquin D4. Given Lasix 20 mg IV x one 06/24/18 due to B/L LE pitting edema, then started on scheduled lasix 20 mg IV BID. Will DC on PO Lasix 20 mg PO BID. Pt seen by palliative care service and both pt and family decided to go back to [place] with plans to be admitted to hospice care there. (2) Acute exacerbation of chronic obstructive airways disease Priority: Primary Status: Acute Assessment and Plan: As above (3) Atrial fibrillation with RVR Priority: Primary Status: Acute Assessment and Plan: better controlled with improvement in his respiratory status Continues to require diltiazem drip with low rate but was able to wean off 06/24/18 Pt was started on BB on his last admission but was not continued at the [place]. Will wean off cardizem gtt. Cardio-selective BBs are safe in patients with COPD. who have an indication for their use therefore resumed BB and PO cardizem. Cardizem gtt weaned off Continue Xarelto for AC (4) Hypertension Priority: Secondary Status: Chronic Assessment and Plan: Controlled on home meds Qualifiers: Hypertension type: essential hypertension Qualified Code(s): I10 - Essential (primary) hypertension (5) Elevated troponin I level Priority: Secondary Status: Acute Assessment and Plan: Likely demand ischemia in the setting of acute resting failure and A. fib with RVR. Troponin down trended to 0.07. However, pt may benefit from stress test once resp status more stable. Echocardiogram did reveal EF 45-50% with mild global LV systolic dysfunction and moderate LV diastolic dysfunction (no comparison available) No prior Echo available on file. Will try wean off cardizem gtt and start on Metoprolol 12.5 mg BID as was prescribed on his previous discharge. For reasons that are not completely clear. BB was not continued at the [place] after his discharge. Resume home dose of aspirin and statin. Checking lipid panel in am. Hospital course: History of present illness: Dr. Kong Mr. Campbell is a 72 year old male past medical history of COPD, hypertension, atrial fibrillation presented to [place] ED from his nursing care facility due to lethargy and difficulty breathing. The to have altered mental status due to elevated carbon dioxide levels. She was also found to have A. fib with RVR. Patient states he had confusion post presentation to [place]. However now he denies any confusion. Patient is laying in bed on BiPAP. Currently patient states he is not short of breath but BiPAP is helping. Patient still complaining of a productive cough. Has vizcaino mucus. Patient currently denies any chest pain states he did have some earlier. Patient denies current palpitations. Patient also denies fever, chills, abdominal pain, nausea, vomiting, diarrhea, weakness, numbness or tingling, dizziness, rash. Discharge discussed with: patient - Time Spent with Patient Total time spent providing and/or coordinating discharge services: Greater than 30 minutes - Discharge Medications Prescriptions: No Action Budesonide/Formoterol 160/4.5 [Symbicort 160/4.5] 2 puff IH BID Methocarbamol [Robaxin] 500 mg PO HS Losartan [Cozaar] 25 mg PO DAILY Simvastatin [Zocor] 20 mg PO DAILY Docusate Sodium [Dok] 100 mg PO BID dilTIAZem HCl [Diltiazem 24Hr ER] 240 mg PO DAILY Acetaminophen [Tylenol] 650 mg PO Q8H PRN PRN Reason: Pain Gabapentin [Neurontin] 400 mg PO DAILY Aspirin 81 mg PO DAILY Quetiapine Fumarate [Seroquel] 400 mg PO BID Buspirone HCl [Buspar] 10 mg PO BID Calcium Carbonate/Vitamin D3 [Calcium 500 + Vit D Caplet] 1 tab PO BID Denosumab [Prolia (For Outpatient Infusion)] 60 mg SQ Q6M Levalbuterol HCl [Xopenex Neb] 1.25 mg IH Q4H PRN PRN Reason: Wheezing Melatonin 3 mg PO HS Multivit-Min/FA/Lycopen/Lutein [A Thru Z Select Multivit Tab] 1 tab PO DAILY Pantoprazole Sodium 40 mg PO BID Tiotropium [Spiriva] 1 puff IH DAILY Rivaroxaban [Xarelto] 1 tab PO DAILY Levalbuterol [Xopenex INH] 2 puff IH QID PRN PRN Reason: Shortness Of Breath Cholecalciferol (D-3) [Vitamin D] 3,000 unit PO DAILY Tobramycin/Nebulizer [Tobramycin Julio 300 mg/5 ml] 300 mg IH BID Paroxetine HCl [Paxil] 40 mg PO QAM predniSONE [PredniSONE] 4 mg PO DAILY Sucralfate [Carafate] 1 gm PO ACHS Roflumilast [Daliresp] 500 mcg PO DAILY Home Medications: Acetaminophen [Tylenol] 650 mg PO Q8H PRN 09/03/17 [History] Aspirin 81 mg PO DAILY 09/03/17 [History] Budesonide/Formoterol 160/4.5 [Symbicort 160/4.5] 2 puff IH BID 09/03/17 [History] Docusate Sodium [Dok] 100 mg PO BID 09/03/17 [History] Gabapentin [Neurontin] 400 mg PO DAILY 09/03/17 [History] Losartan [Cozaar] 25 mg PO DAILY 09/03/17 [History] Methocarbamol [Robaxin] 500 mg PO HS 09/03/17 [History] Quetiapine Fumarate [Seroquel] 400 mg PO BID 09/03/17 [History] Simvastatin [Zocor] 20 mg PO DAILY 09/03/17 [History] dilTIAZem HCl [Diltiazem 24Hr ER] 240 mg PO DAILY 09/03/17 [History] Paroxetine HCl [Paxil] 40 mg PO QAM 10/14/17 [History] Sucralfate [Carafate] 1 gm PO ACHS 10/14/17 [History] predniSONE [PredniSONE] 4 mg PO DAILY 10/14/17 [History] Roflumilast [Daliresp] 500 mcg PO DAILY 05/02/18 [History] Buspirone HCl [Buspar] 10 mg PO BID 05/03/18 [History] Calcium Carbonate/Vitamin D3 [Calcium 500 + Vit D Caplet] 1 tab PO BID 05/03/18 [History] Denosumab [Prolia (For Outpatient Infusion)] 60 mg SQ Q6M 05/03/18 [History] Levalbuterol HCl [Xopenex Neb] 1.25 mg IH Q4H PRN 05/03/18 [History] Melatonin 3 mg PO HS 05/03/18 [History] Multivit-Min/FA/Lycopen/Lutein [A Thru Z Select Multivit Tab] 1 tab PO DAILY 05/03/18 [History] Pantoprazole Sodium 40 mg PO BID 05/03/18 [History] Tiotropium [Spiriva] 1 puff IH DAILY 05/03/18 [History] Rivaroxaban [Xarelto] 1 tab PO DAILY 06/20/18 [History] Cholecalciferol (D-3) [Vitamin D] 3,000 unit PO DAILY 06/21/18 [History] Levalbuterol [Xopenex INH] 2 puff IH QID PRN 06/21/18 [History] Tobramycin/Nebulizer [Tobramycin Julio 300 mg/5 ml] 300 mg IH BID 06/21/18 [History] Allergies/Adverse Reactions: Allergy/AdvReac Type Severity Reaction Status Date / Time No Known Allergies Allergy Verified 06/18/18 18:10 Date of admission: 06/19/18 22:43 [facility] physician: [facility] Consults: 06/20/18 00:44 Consult to Nurse Navigator [CONS] Routine Comment: 06/23/18 15:00 Consult to Palliative Care [CONS] Routine Comment: Consulting Provider: Palliative Care [facility] Reason for Consult: Acute on chronic respiratory failure secondary to COPD, recurrent admissions. ?Hospice Call Completed: Yes Discharging clinician: Radha Melara Anticipated date of discharge: 06/25/18 - Constitutional Vitals: Temp Pulse Resp BP Pulse Ox 98.2 F 85 14 113/50 97 06/25/18 11:27 06/25/18 11:27 06/25/18 11:27 06/25/18 11:27 06/25/18 11:27 General appearance: Present: A&O X 3, no acute distress, obese Exam: General: Alert and oriented, no acute distress, obese. Head exam: Present: atraumatic, normocephalic Eye exam: Present: PERRL, conjuntiva pink, sclera anicteric Pupils: Present: PERRLA Cardiovascular:Normal S1 & S2, No JVD. Pulse irregular but rate normalized Lungs: B/L crackles, diminished lung sounds with occasional expiratory wheezes bilaterally Abdomen:Soft, non-tender, no rigidity. Extremities exam: Present: warm, radial pulses palpable and symmetrical. Absent: calf tenderness, cyanotic, pedal edema Neurological exam: Normal cognition and motor skills. Non-focal. Psychiatric exam: Present: normal affect, normal mood Skin exam: Present: dry, intact - Patient Status Disposition: Transfer LTC Condition: Fair Overall status at discharge: patient is not back to baseline - Discharge Instructions Follow Up With: [facility] [Primary Care Provider] - - Diet and Activity Activity: increase activity as tolerated Diet: diabetic diet, low fat, low cholesterol, low salt diet
--- NOTE | 2018-06-25 13:25 | Physician Discharge Referral ---
ExtendedCare Referral Info Transfer To: [facility] Provider in Charge after Transfer: PCP Institutional Level of Care: Skilled - Diagnosis (1) Acute respiratory failure with hypercapnia Priority: Primary Status: Acute (2) Acute exacerbation of chronic obstructive airways disease Priority: Secondary Status: Acute (3) Atrial fibrillation with RVR Priority: Secondary Status: Acute (4) Hypertension Priority: Secondary Status: Chronic (5) Elevated troponin I level Status: Acute Prognosis: Poor Aware of Diagnosis: Patient, Family Aware of Prognosis: Patient, Family - Transfer Medications Prescriptions: Furosemide [Lasix] 20 mg PO BID 30 Days #60 tablet Home Medications: Acetaminophen [Tylenol] 650 mg PO Q8H PRN 09/03/17 [History] Aspirin 81 mg PO DAILY 09/03/17 [History] Budesonide/Formoterol 160/4.5 [Symbicort 160/4.5] 2 puff IH BID 09/03/17 [History] Docusate Sodium [Dok] 100 mg PO BID 09/03/17 [History] Gabapentin [Neurontin] 400 mg PO DAILY 09/03/17 [History] Losartan [Cozaar] 25 mg PO DAILY 09/03/17 [History] Methocarbamol [Robaxin] 500 mg PO HS 09/03/17 [History] Quetiapine Fumarate [Seroquel] 400 mg PO BID 09/03/17 [History] Simvastatin [Zocor] 20 mg PO DAILY 09/03/17 [History] dilTIAZem HCl [Diltiazem 24Hr ER] 240 mg PO DAILY 09/03/17 [History] Paroxetine HCl [Paxil] 40 mg PO QAM 10/14/17 [History] Sucralfate [Carafate] 1 gm PO ACHS 10/14/17 [History] predniSONE [PredniSONE] 4 mg PO DAILY 10/14/17 [History] Roflumilast [Daliresp] 500 mcg PO DAILY 05/02/18 [History] Buspirone HCl [Buspar] 10 mg PO BID 05/03/18 [History] Calcium Carbonate/Vitamin D3 [Calcium 500 + Vit D Caplet] 1 tab PO BID 05/03/18 [History] Denosumab [Prolia (For Outpatient Infusion)] 60 mg SQ Q6M 05/03/18 [History] Levalbuterol HCl [Xopenex Neb] 1.25 mg IH Q4H PRN 05/03/18 [History] Melatonin 3 mg PO HS 05/03/18 [History] Multivit-Min/FA/Lycopen/Lutein [A Thru Z Select Multivit Tab] 1 tab PO DAILY 05/03/18 [History] Pantoprazole Sodium 40 mg PO BID 05/03/18 [History] Tiotropium [Spiriva] 1 puff IH DAILY 05/03/18 [History] Rivaroxaban [Xarelto] 1 tab PO DAILY 06/20/18 [History] Cholecalciferol (D-3) [Vitamin D] 3,000 unit PO DAILY 06/21/18 [History] Levalbuterol [Xopenex INH] 2 puff IH QID PRN 06/21/18 [History] Tobramycin/Nebulizer [Tobramycin Julio 300 mg/5 ml] 300 mg IH BID 06/21/18 [History] Furosemide [Lasix] 20 mg PO BID 30 Days #60 tablet 06/25/18 [Rx] Metoprolol [Lopressor] 12.5 mg PO BID tablet 06/25/18 [Rx] Allergies/Adverse Reactions: Allergy/AdvReac Type Severity Reaction Status Date / Time No Known Allergies Allergy Verified 06/18/18 18:10 - Respiratory Orders Smoking Cessation: Smoking cessation has been advised. For more information, call the [place] Tobacco Quit Line at 2-729-NUGD-NOW. - Advance Directives Code Status: DNR-Arrest/Don't Intubate - Rehabiliation Orders Rehab Orders: Evaluation for Physical Therapy, Evaluation for Occupational Therapy - Diet Orders Cardiac CERTIFICATION: I certify that the transfer of the above named patient to an Extended Care Facility is necessary for the continuing treatment of the diagnosis listed. The above information is true and accurate reflection of patient's current condition. Confidential - Redisclosure prohibited without a patient's written consent.
[2018-06-25] MEDS: predniSONE 20 MG TABLET PO SCH (18:13)
[2018-06-25] MEDS: Melatonin 3 MG TABLET PO SCH (21:03)
[2018-06-26] MEDS: Levalbuterol Neb 1.25 MG/3 ML IH SCH ×5 (00:21→16:08)
--- NOTE | 2018-06-26 01:17 | Event Note ---
Date of Encounter: 06/26/18 Time of Encounter: 00:31 Notified by nurse of patient getting out of bed without assistance and having mechanical fall and striking his head. Assessed patient at bedside, remains alert and oriented, vitals stable, denies any injury or pain. No visible injury on assessment. Discussed obtaining head CT as a precaution since patient is on Xarelto and he is agreeable. Nurse to notify of any changes, Head CT ordered. Discussed with Dr Vargas.
[2018-06-26 06:10] LABS: Basophils % 0.1 %; Lymphocytes % 1.9 %; Red Cell Distribution Width 14.1 % (11.5-14.5)
[2018-06-26 06:12] LABS: Eosinophils % 0.1 %; Hematocrit 34.9 % (37.5-50.1); Immature Granulocytes % 0.5 % (0-4); Lymphocytes # 0.3 K/mcL (0.6-4.6); Mean Corpuscular HGB Conc 28.7 g/dL (31.6-35.5); Mean Corpuscular Hemoglobin 29.1 pg (28.0-33.3); Mean Corpuscular Volume 101.5 fL (83.0-100.0); Mean Platelet Volume 10.5 fL (9.4-12.4); Monocytes # 0.7 K/mcL (0.0-1.3); Monocytes % 5.3 %; Neutrophils # 12.8 K/mcL (1.6-8.9); Platelet Count 157 K/mcL (140-400); Red Blood Count 3.44 M/mcL (4.19-5.50); Segmented Neutrophils % 92.1 %
[2018-06-26 06:39] LABS: BUN/Creatinine Ratio 71 (6-26); Blood Urea Nitrogen 54 mg/dL (8-23); Calcium 8.8 mg/dL (8.6-10.3); Carbon Dioxide > 45 mEq/L (23-29); Chloride 93 mEq/L (98-107); Glucose 239 mg/dL (70-105); Osmolality,Calculated 319 (280-300); Potassium 4.7 mEq/L (3.5-5.1); Sodium 143 mEq/L (136-145); eGFR For Non-African Americans > 60 (> 60)
[2018-06-26] MEDS: Budesonide/Formoterol 160/4.5 1 PUFF INH IH SCH (07:31)
--- NOTE | 2018-06-26 08:12 | Internal Med Progress Note ---
Hospitalist Progress Note - Encounter Date of Encounter: 06/26/18 Time of Encounter: 08:10 - Subjective Interval History: Patient seen and examined. Patient has no complaints. He does report that he had a fall overnight that was mechanical in nature. Denies loss of consciousness. Denies new headache, vision changes, weakness. - Exam Vitals: Temp Pulse Resp BP Pulse Ox 97.6 F 84 14 86/69 98 06/26/18 05:13 06/26/18 07:23 06/26/18 07:31 06/26/18 07:23 06/26/18 07:31 Exam: Heart: Irregularly irregular rhythm, no murmurs, rubs, gallops Lungs: Clear to auscultation bilaterally - Assessment and Plan (1) Acute respiratory failure with hypercapnia Current Visit: Yes Status: Acute Assessment and Plan: Secondary to COPD exacerbation No evidence of pneumonia, respiratory viral panel negative. Blood gas normalized after prolonged BiPAP therapy and continues to use BiPaP. Continue prednisone PO with slow taper per primary Continue bronchodilators and Levaquin D4. Continue by mouth Lasix Discharge back to [place] with hospice care. (2) Fall Current Visit: Yes Status: Acute Assessment and Plan: Patient had a fall overnight. Appears to be mechanical in nature. No sequelae noted. Head CT reviewed and unremarkable. Stable for discharge today. (3) Acute exacerbation of chronic obstructive airways disease Current Visit: Yes Status: Acute Assessment and Plan: As above (4) Hypertension Current Visit: No Status: Chronic Assessment and Plan: Stable on home meds (5) Atrial fibrillation with RVR Current Visit: Yes Status: Acute Assessment and Plan: Rate controlled. Continue rate controlling medications and Xarelto - Time Spent with Patient Total time spent is greater than 50% in coordination of care (as documented) at patient's floor/unit and/or counseling patient: Internal Medicine: Result - Labs CBC & Chem 7: 06/26/18 05:46 06/26/18 05:46 Labs: Short CBC 06/26/18 Range/Units 05:46 WBC 13.9 H (4.3-11.1) K/mcL Hgb 10.0 L (12.9-16.9) g/dL Hct 34.9 L (37.5-50.1) % Plt Count 157 (140-400) K/mcL BMP 06/25/18 06/26/18 07:18 05:46 Sodium 142 143 Potassium 4.6 4.7 Chloride 93 L 93 L Carbon Dioxide > 45 H* > 45 H* BUN 52 H 54 H Creatinine 0.70 0.76 Glucose 231 H 239 H Calcium 8.7 8.8 - ABG Interpretation ABG results: ABG ABG pH 7.31 pH Units (7.32-7.45) L 06/23/18 16:02 ABG pCO2 95 mmHg (35-45) H* 06/23/18 16:02 ABG pO2 48 mmHg (85-104) L* 06/23/18 16:02 ABG O2 Saturation 76 % (95-98) L 06/23/18 16:02 - Impressions Impressions Head CT 06/26/18 00:37 IMPRESSION: No acute intracranial abnormality. D/ / Jak Hwang MD / Jak Hwang MD Interpreting Provider: Jak Hwang MD Consult Discharge Plan - Plan [facility] - Prescriptions: Furosemide [Lasix] 20 mg PO BID 30 Days #60 tablet (2) Fall Qualifiers: Encounter type: initial encounter Qualified Code(s): W19.XXXA - Unspecified fall, initial encounter (4) Hypertension Qualifiers: Hypertension type: essential hypertension Qualified Code(s): I10 - Essential (primary) hypertension
[2018-06-26 08:28] LABS: Anisocytosis 1+ (Not Present); Hypochromasia Present (Not Present); Platelet Estimate Normal (Normal)
[2018-06-26] MEDS: *HR* Rivaroxaban 10 MG TABLET PO SCH (09:41)
[2018-06-26] MEDS: Gabapentin 400 MG CAPSULE PO SCH (09:41)
[2018-06-26] MEDS: Diltiazem CD (24hr) 180 MG CAPSULE PO SCH (09:41)
[2018-06-26] MEDS: predniSONE 20 MG TABLET PO SCH (09:41)
[2018-06-26] MEDS: levoFLOXacin 500 MG TABLET PO SCH (09:41)
[2018-06-26] MEDS: Cholecalciferol (D-3) 1,000 UNIT TABLET PO SCH (09:41)
[2018-06-26] MEDS: Aspirin 81 MG TAB.CHEW PO SCH (09:41)
[2018-06-26] MEDS: Furosemide 20 MG/2 ML VIAL IVP SCH (09:42)
[2018-06-26] MEDS: Insulin LISPRO 300 UNITS/3 ML VIAL SQ SCH ×2 (10:04→12:34)
--- NOTE | 2018-06-26 10:11 | Event Note ---
Date of Encounter: 06/26/18 Time of Encounter: 09:30 Noted patient had fall last night, Head CT negative for acute abnormality. States he is not having any pain or discomfort from fall. He can be discharged today if ok with hospitalist and transitioned back to custodial. Wiill be admitted to [facility]. Prescription for Roxanol for shortness of breath faxed to Pharmacy. D/W primary nurse, [place]. [facility] will need notified of return, EMS set up for transport, and [place] [facility] called with time of discharge.
[2018-06-26 16:17] VITALS: BP 95/76
== END 2018-06-26 18:00 | DRG 190 ==
LOC: 2NENU 22:43 → SUATTDRO 22:43 → 2NENU 06-26 06:45
PROVIDERS: ADMIT Internal Medicine; ATTEND Internal Medicine